=== PATIENT | male | born 1955 | race Caucasian/White ===

== ENCOUNTER 2016-07-23 22:04 | Inpatient (IN) ==
--- NOTE | 2016-07-23 22:19 | Emergency Department Note ---
START Narrative - START START: Initial start note brief triage and order sets: 61-year-old male reports to the emergency Department complaining of progressive and worsening abdominal pain over the last 2 days. He has not had a bowel movement for about 2 days. The patient denies trauma. He is a methadone patient. He has chronic neck pain. The patient denies any previous abdominal surgeries. He denies any chest pain shortness of breath or fever. No acute back or flank pain no history of bloody urine. The patient has no history of hepatitis or previous liver disease. The patient describes abdominal swelling but denies jaundice. He has no history of bloody stool. The patient's medical history includes chronic neck pain, he denies any other major medical problems. His female drum builder collaborates his story. She reports they tried to give him an enema which only produced minimal stool. PE: Age-appropriate male sitting upright in a wheelchair nontoxic in appearance alert oriented answering questions properly. HEENT normocephalic atraumatic neck is supple no JVD noted. Cardiovascular S1 and S2 audible Extremities warm and well-perfused 4 without cyanosis or significant edema Neurologic muscle strength and sensation generally intact cranial nerves II through XII grossly intact speech pattern unremarkable Lungs clear to auscultation without lesly wheezes rhonchi rales or crackles Abdomen somewhat distended and firm, notable tenderness, no evidence of trauma or overt herniation. Exposed skin warm and dry without petechia or purpura Initial assessment includes a broad differential for abdominal pain, comprehensive ED abdominal testing was ordered. IV access was established. Impression: Abdominal pain Abdominal distention Chronic narcotic utilization Plan: Comprehensive abdominal studies have been ordered. The patient has been checked out to BIJAN Barker and Dr. Duke who will assume care and determine final diagnosis and disposition. At this point I am signing off on the case.
[2016-07-23 22:56] LABS: Bilirubin,Urine Negative (Negative); Blood,Urine Negative (Negative); Clarity,Urine Clear (Clear); Color,Urine Yellow (Yellow); Glucose,Urine (UA) Normal (Normal); Ketones,Urine Negative (Negative); Leukocyte Esterase,Urine Negative (Negative); Nitrite,Urine Negative (Negative); Protein,Urine Trace mg/dL (Neg-Trace); Urobilinogen,Urine Normal (Normal)
[2016-07-23 23:04] LABS: Basophils % 0.2 %; Hematocrit 44.3 % (37.5-50.1); Hemoglobin 15.2 g/dL (12.9-16.9); Immature Granulocytes % 0.4 % (0-4); Lymphocytes # 1.6 K/mcL (0.6-4.6); Lymphocytes % 8.4 %; Mean Corpuscular HGB Conc 34.3 g/dL (31.6-35.5); Mean Corpuscular Hemoglobin 31.3 pg (28.0-33.3); Mean Corpuscular Volume 91.2 fL (83.0-100.0); Mean Platelet Volume 9.9 fL (9.4-12.4); Monocytes # 0.9 K/mcL (0.0-1.3); Monocytes % 4.9 %; Neutrophils # 16.5 K/mcL (1.6-8.9); Nucleated Red Blood Cells 0.1 /100 WBC (0); Platelet Count 222 K/mcL (140-400); Red Blood Count 4.86 M/mcL (4.19-5.50); Red Cell Distribution Width 13.9 % (11.5-14.5); Segmented Neutrophils % 86.1 %
[2016-07-23 23:08] LABS: INR 1.1; Prothrombin Time 11.4 Seconds (9.4-12.1)
[2016-07-23 23:11] LABS: Activated Partial Thrombo Time 26.2 Seconds (26.0-36.0)
[2016-07-23 23:18] LABS: Amphetamine Screen,Urine Negative ng/mL (Cutoff=1000); Barbiturate Screen,Urine Negative ng/mL (Cutoff=200); Benzodiazepines Screen,Urine Negative ng/mL (Cutoff=200); Cannabinoid Screen,Urine Negative ng/mL (Cutoff = 50); Cocaine Screen,Urine Negative ng/mL (Cutoff= 300); Opiate Screen,Urine Negative ng/mL (Cutoff=300); Phencyclidine Screen,Urine Negative ng/mL (Cutoff=25)
[2016-07-23] MEDS ORDERED: *HR* HYDROmorphone (PF) 1 MG/ML SYRINGE IVP ONE (23:18)
--- NOTE | 2016-07-23 23:20 | Emergency Department Note ---
Disposition Clinical Impression: Pancreatitis Qualifiers: Chronicity: acute Pancreatitis type: alcohol induced Acute pancreatitis complication: unspecified Qualified Code(s): K85.20 - Alcohol induced acute pancreatitis without necrosis or infection Abdominal pain Qualifiers: Abdominal location: unspecified location Qualified Code(s): R10.9 - Unspecified abdominal pain Disposition: Admitted As Inpatient Condition: Good Referrals: NO,PCP [Non-Partnered Physician] - Forms: Work/School Release, ED Satisfaction Letter Time of Disposition: 23:41 General Adult HPI - General Chief complaint: ED Abdominal Pain Stated complaint: Abdominal Pain Time Seen by Provider: 07/23/16 22:19 Source: patient Limitations: no limitations - History of Present Illness Pain Scale: 8 - Related Data Allergies Allergy/AdvReac Type Severity Reaction Status Date / Time No Known Allergies Allergy Verified 07/23/16 22:09 Past Medical History - Past Medical History Medical history: Reports: hypertension, other - Social History Smoking Status: Never smoker Smokeless Tobacco Status: No Alcohol use: Reports: heavy Drug use: Reports: none Physical Exam - General Limitations: no limitations General appearance: alert, in no apparent distress Course Vital Signs Temperature 98.1 F 07/23/16 22:05 Pulse Rate 100 07/23/16 22:05 Respiratory Rate 18 07/23/16 22:05 Blood Pressure 104/71 07/23/16 22:05 O2 Sat by Pulse Oximetry 94 L 07/23/16 22:05 Temperature 98.1 F 07/23/16 22:05 Pulse Rate 100 07/23/16 22:05 Respiratory Rate 18 07/23/16 22:05 Blood Pressure 104/71 07/23/16 22:05 O2 Sat by Pulse Oximetry 94 L 07/23/16 22:05 Oxygen Delivery Oxygen Delivery Room Air Medical Decision Making - Lab Data Result diagrams: 07/23/16 22:54 07/23/16 22:54 Lab Results 07/23/16 07/23/16 07/23/16 Range/Units 22:49 22:50 22:54 WBC 19.2 H (4.3-11.1) K/mcL RBC 4.86 (4.19-5.50) M/mcL Hgb 15.2 (12.9-16.9) g/dL Hct 44.3 (37.5-50.1) % MCV 91.2 (83.0-100.0) fL MCH 31.3 (28.0-33.3) pg MCHC 34.3 (31.6-35.5) g/dL RDW 13.9 (11.5-14.5) % Plt Count 222 (140-400) K/mcL MPV 9.9 (9.4-12.4) fL Immature Gran % 0.4 (0-4) % Seg Neutrophils % 86.1 % Lymphocytes % 8.4 % Monocytes % 4.9 % Eosinophils % 0.0 % Basophils % 0.2 % Neutrophils # 16.5 H (1.6-8.9) K/mcL Lymphocytes # 1.6 (0.6-4.6) K/mcL Monocytes # 0.9 (0.0-1.3) K/mcL Eosinophils # 0.0 (0.0-0.6) K/mcL Basophils # 0.0 (0.0-0.2) K/mcL Nucleated RBCs/100 WBC 0.1 H (0) /100 WBC PT (9.4-12.1) Seconds INR APTT (26.0-36.0) Seconds Sodium (136-145) mEq/L Potassium (3.5-4.5) mEq/L Chloride (98-109) mEq/L Carbon Dioxide (19-29) mEq/L BUN (8-26) mg/dL Creatinine (0.72-1.25) mg/dL Est GFR ( Amer) (> 60) Est GFR (Non-Af Amer) (> 60) BUN/Creatinine Ratio (6-26) Glucose (70-99) mg/dL Calculated Osmolality (280-300) Lactic Acid (0.5-2.2) mmol/L Calcium (8.6-10.8) mg/dL Total Bilirubin (0.2-1.2) mg/dL Direct Bilirubin (0.0-0.5) mg/dL Indirect Bilirubin (0.0-1.2) mg/dL AST (5-34) Units/L ALT (0-55) Units/L Alkaline Phosphatase (38-126) Units/L Ammonia (18-72) mcmol/L C-Reactive Protein (Less than 5) mg/L Serum Total Protein (6.0-8.3) g/dL Albumin (3.5-5.0) g/dL Globulin (2.4-3.5) g/dL Albumin/Globulin Ratio (1.1-2.2) Lipase (8-78) Units/L Urine Color Yellow (Yellow) Urine Clarity Clear (Clear) Urine pH 6.0 (5.0-8.0) pH Units Ur Specific Vernon 1.020 (1.010-1.025) Urine Protein Trace (Neg-Trace) mg/dL Urine Glucose (UA) Normal (Normal) mg/dL Urine Ketones Negative (Negative) mg/dL Urine Blood Negative (Negative) Urine Nitrite Negative (Negative) Urine Bilirubin Negative (Negative) Urine Urobilinogen Normal (Normal) mg/dL Ur Leukocyte Esterase Negative (Negative) Ur Culture Indicated? NO (NO) Salicylates (15-30) mg/dL Urine Opiates Screen Negative (Lymgvj=895) ng/mL Acetaminophen (10-30) mcg/mL Ur Barbiturates Screen Negative (Xetiuc=318) ng/mL Ur Phencyclidine Scrn Negative (Cutoff=25) ng/mL Ur Amphetamines Screen Negative (Gsjeex=1512) ng/mL U Benzodiazepines Scrn Negative (Vausnm=891) ng/mL Urine Cocaine Screen Negative (Cutoff= 300) ng/mL U Marijuana (THC) Screen Negative (Cutoff = 50) ng/mL 07/23/16 07/23/16 07/23/16 Range/Units 22:54 22:54 22:54 WBC (4.3-11.1) K/mcL RBC (4.19-5.50) M/mcL Hgb (12.9-16.9) g/dL Hct (37.5-50.1) % MCV (83.0-100.0) fL MCH (28.0-33.3) pg MCHC (31.6-35.5) g/dL RDW (11.5-14.5) % Plt Count (140-400) K/mcL MPV (9.4-12.4) fL Immature Gran % (0-4) % Seg Neutrophils % % Lymphocytes % % Monocytes % % Eosinophils % % Basophils % % Neutrophils # (1.6-8.9) K/mcL Lymphocytes # (0.6-4.6) K/mcL Monocytes # (0.0-1.3) K/mcL Eosinophils # (0.0-0.6) K/mcL Basophils # (0.0-0.2) K/mcL Nucleated RBCs/100 WBC (0) /100 WBC PT (9.4-12.1) Seconds INR APTT (26.0-36.0) Seconds Sodium 132 L (136-145) mEq/L Potassium 4.2 (3.5-4.5) mEq/L Chloride 90 L (98-109) mEq/L Carbon Dioxide 29 (19-29) mEq/L BUN 16 (8-26) mg/dL Creatinine 0.95 (0.72-1.25) mg/dL Est GFR ( Amer) > 60 (> 60) Est GFR (Non-Af Amer) > 60 (> 60) BUN/Creatinine Ratio 17 (6-26) Glucose 139 H (70-99) mg/dL Calculated Osmolality 277 L (280-300) Lactic Acid 2.3 H (0.5-2.2) mmol/L Calcium 10.1 (8.6-10.8) mg/dL Total Bilirubin 0.9 (0.2-1.2) mg/dL Direct Bilirubin 0.3 (0.0-0.5) mg/dL Indirect Bilirubin 0.6 (0.0-1.2) mg/dL AST 47 H (5-34) Units/L ALT 38 (0-55) Units/L Alkaline Phosphatase 67 (38-126) Units/L Ammonia (18-72) mcmol/L C-Reactive Protein 32 H (Less than 5) mg/L Serum Total Protein 7.8 (6.0-8.3) g/dL Albumin 3.5 (3.5-5.0) g/dL Globulin 4.3 H (2.4-3.5) g/dL Albumin/Globulin Ratio 0.8 L (1.1-2.2) Lipase 1114 H (8-78) Units/L Urine Color (Yellow) Urine Clarity (Clear) Urine pH (5.0-8.0) pH Units Ur Specific Vernon (1.010-1.025) Urine Protein (Neg-Trace) mg/dL Urine Glucose (UA) (Normal) mg/dL Urine Ketones (Negative) mg/dL Urine Blood (Negative) Urine Nitrite (Negative) Urine Bilirubin (Negative) Urine Urobilinogen (Normal) mg/dL Ur Leukocyte Esterase (Negative) Ur Culture Indicated? (NO) Salicylates 7.3 L (15-30) mg/dL Urine Opiates Screen (Jngvep=356) ng/mL Acetaminophen < 1.0 L (10-30) mcg/mL Ur Barbiturates Screen (Jtjnll=963) ng/mL Ur Phencyclidine Scrn (Cutoff=25) ng/mL Ur Amphetamines Screen (Zgpvuz=5312) ng/mL U Benzodiazepines Scrn (Aahrmp=369) ng/mL Urine Cocaine Screen (Cutoff= 300) ng/mL U Marijuana (THC) Screen (Cutoff = 50) ng/mL 07/23/16 07/23/16 Range/Units 22:54 22:54 WBC (4.3-11.1) K/mcL RBC (4.19-5.50) M/mcL Hgb (12.9-16.9) g/dL Hct (37.5-50.1) % MCV (83.0-100.0) fL MCH (28.0-33.3) pg MCHC (31.6-35.5) g/dL RDW (11.5-14.5) % Plt Count (140-400) K/mcL MPV (9.4-12.4) fL Immature Gran % (0-4) % Seg Neutrophils % % Lymphocytes % % Monocytes % % Eosinophils % % Basophils % % Neutrophils # (1.6-8.9) K/mcL Lymphocytes # (0.6-4.6) K/mcL Monocytes # (0.0-1.3) K/mcL Eosinophils # (0.0-0.6) K/mcL Basophils # (0.0-0.2) K/mcL Nucleated RBCs/100 WBC (0) /100 WBC PT 11.4 (9.4-12.1) Seconds INR 1.1 APTT 26.2 (26.0-36.0) Seconds Sodium (136-145) mEq/L Potassium (3.5-4.5) mEq/L Chloride (98-109) mEq/L Carbon Dioxide (19-29) mEq/L BUN (8-26) mg/dL Creatinine (0.72-1.25) mg/dL Est GFR ( Amer) (> 60) Est GFR (Non-Af Amer) (> 60) BUN/Creatinine Ratio (6-26) Glucose (70-99) mg/dL Calculated Osmolality (280-300) Lactic Acid (0.5-2.2) mmol/L Calcium (8.6-10.8) mg/dL Total Bilirubin (0.2-1.2) mg/dL Direct Bilirubin (0.0-0.5) mg/dL Indirect Bilirubin (0.0-1.2) mg/dL AST (5-34) Units/L ALT (0-55) Units/L Alkaline Phosphatase (38-126) Units/L Ammonia 13 L (18-72) mcmol/L C-Reactive Protein (Less than 5) mg/L Serum Total Protein (6.0-8.3) g/dL Albumin (3.5-5.0) g/dL Globulin (2.4-3.5) g/dL Albumin/Globulin Ratio (1.1-2.2) Lipase (8-78) Units/L Urine Color (Yellow) Urine Clarity (Clear) Urine pH (5.0-8.0) pH Units Ur Specific Vernon (1.010-1.025) Urine Protein (Neg-Trace) mg/dL Urine Glucose (UA) (Normal) mg/dL Urine Ketones (Negative) mg/dL Urine Blood (Negative) Urine Nitrite (Negative) Urine Bilirubin (Negative) Urine Urobilinogen (Normal) mg/dL Ur Leukocyte Esterase (Negative) Ur Culture Indicated? (NO) Salicylates (15-30) mg/dL Urine Opiates Screen (Fbmpin=490) ng/mL Acetaminophen (10-30) mcg/mL Ur Barbiturates Screen (Wntoww=959) ng/mL Ur Phencyclidine Scrn (Cutoff=25) ng/mL Ur Amphetamines Screen (Pmnelm=4102) ng/mL U Benzodiazepines Scrn (Yveizu=658) ng/mL Urine Cocaine Screen (Cutoff= 300) ng/mL U Marijuana (THC) Screen (Cutoff = 50) ng/mL Attestation Statement - Attestation Attestation: Care of patient assumed from Dr. Live at 11:15 PM. Patient presents with abdominal pain. He takes opiates chronically. He states he might be constipated. He requests pain medications on exam. Sitting in a wheelchair with noticeable mild distention to his abdomen. Labs reviewed by me. CT abdomen and pelvis with IV contrast pending. 23:40: Lipase markedly elevated. Patient does drink a 12 pack of beer daily and has been drinking liquor recently. I will request admission to the medicine service 00:00: Dr. Bazan accepts admission
[2016-07-23 23:21] LABS: Alanine Aminotransferase 38 Units/L (0-55); Albumin 3.5 g/dL (3.5-5.0); Albumin/Globulin Ratio 0.8 (1.1-2.2); Alkaline Phosphatase 67 Units/L (38-126); Aspartate Amino Transferase 47 Units/L (5-34); BUN/Creatinine Ratio 17 (6-26); Bilirubin,Direct 0.3 mg/dL (0.0-0.5); Bilirubin,Indirect 0.6 mg/dL (0.0-1.2); Bilirubin,Total 0.9 mg/dL (0.2-1.2); Blood Urea Nitrogen 16 mg/dL (8-26); Calcium 10.1 mg/dL (8.6-10.8); Carbon Dioxide 29 mEq/L (19-29); Chloride 90 mEq/L (98-109); Globulin 4.3 g/dL (2.4-3.5); Glucose 139 mg/dL (70-99); Lipase 1114 Units/L (8-78); Osmolality,Calculated 277 (280-300); Potassium 4.2 mEq/L (3.5-4.5); Sodium 132 mEq/L (136-145); Total Protein 7.8 g/dL (6.0-8.3); eGFR For African Americans > 60 (> 60); eGFR For Non-African Americans > 60 (> 60)
[2016-07-23 23:23] LABS: Acetaminophen < 1.0 mcg/mL (10-30)
[2016-07-23 23:34] LABS: C-Reactive Protein 32 mg/L (Less than 5)
[2016-07-23] MEDS ORDERED: 0.9 % Sodium Chloride 1,000 ML IVC ONE (23:54)
[2016-07-24] MEDS ORDERED: clonazePAM 1 MG TABLET PO SCH (02:09)
[2016-07-24] MEDS ORDERED: *HR* Methadone 5 MG TABLET PO SCH (02:09)
[2016-07-24] MEDS ORDERED: 0.9 % Sodium Chloride 1,000 ML IVC SCH ×2 (02:15→05:06)
[2016-07-24] MEDS ORDERED: Ondansetron 4 MG/2 ML VIAL IVP PRN (02:20)
[2016-07-24] MEDS ORDERED: Acetaminophen 325 MG TABLET PO PRN (02:20)
[2016-07-24] MEDS ORDERED: Naloxone 0.4 MG/ML INJ IVP PRN (02:20)
[2016-07-24] MEDS ORDERED: 0.9 % Sodium Chloride 1,000 ML ONE (02:30)
[2016-07-24] MEDS: tiZANidine 4 MG TABLET PO SCH ×3 (02:33→20:00)
[2016-07-24] MEDS: Bisoprolol/HCTZ 5/6.25 TABLET PO SCH (02:33)
--- NOTE | 2016-07-24 02:40 | Internal Med History&Physical ---
Date of Encounter: 07/24/16 Time of Encounter: 01:45 Assessment and Plan (1) Pancreatitis Current visit: Yes Status: Acute CT abdomen/pelvis showed acute on chronic pancreatitis with moderate inflammation adjacent tot he pancreatic tail with a single pseudocyst, hepatic steatosis. IV fluids Pain control with morphine Zofran PRN for nausea serial abdominal exams. NPO except medications. patient counseled on importance of alcohol cessation. Qualifiers: Chronicity: acute Pancreatitis type: alcohol induced Acute pancreatitis complication: unspecified Qualified Code(s): K85.20 - Alcohol induced acute pancreatitis without necrosis or infection (2) Abdominal pain Current visit: Yes Status: Acute Etiology likely secondary to pancreatitis. Plan as above. Qualifiers: Abdominal location: unspecified location Qualified Code(s): R10.9 - Unspecified abdominal pain (3) Alcohol dependence Current visit: Yes Status: Chronic Patient states that he drinks about a 6 pack of beer 3-4 days a week. He does not see this as a problem, and he does not believe he drinks too much. Patient counseled extensively on importance of alcohol cessation. [facility] protocol in place. Thiamine/folate supplementation Monitor for any signs of withdrawal. Consult to criminal justice social worker. Qualifiers: Substance use status: unspecified alcohol-induced disorder Qualified Code(s ): F10.29 - Alcohol dependence with unspecified alcohol-induced disorder (4) HTN (hypertension) Current visit: Yes Status: Chronic continue home medication Ziac Qualifiers: Hypertension type: essential hypertension Qualified Code(s): I10 - Essential (primary) hypertension (5) DVT prophylaxis Current visit: Yes Status: Acute heparin 5,000 units SQ Q8 HR Internal Medicine - H&P: HPI Chief complaint: abdominal pain Admitted From: Home Plans for Post Hospital Care: Home History of present illness: Mr. Sandoval is a 61 year old male with PMHx of chronic neck/back pain, HTN. Patient came to ED with CC of abdominal pain in mid to lower abdomen going across. He describes the pain as alternating between a sharp pain and a dull ache. Pain becomes sharp and gets worse with movement. Laying in a position makes the pain better. There is no radiation of the pain. Patient denies nausea, vomiting. He states he was constipated for about two days and finally had a bowel movement today after his gave him an enema. Patient denies blood in stool. He denies fevers but has chills. Social Hx: patient lives at home with . Denies smoking or illicit drug use. He admits to alcohol use: drinks a 6 pack about 3-4 days a week. He denies alcohol dependency but does seem to drink more than normal. His last drink was Sat- he had half a beer. Family Hx: mother: HTN, Father: at 38 from MVA. Past Med Surg Social Fam HX - Past Medical History Medical history: hypertension - Past Surgical History Surgical History: cataract - Social History Smoking Status: Former smoker Smokeless Tobacco Status: No Alcohol use: heavy Drug use: none - Family History Father Hx Family Medical Disorders: Yes (Diabetes) Internal Medicine - H&P: Meds Benazepril/Hydrochlorothiazide [Ziac 5-6.25 mg Tab] 1 tab PO DAILY 07/24/16 [ History] ClonazePAM [Klonopin] 1 mg PO HS 07/24/16 [History] Methadone 5 mg PO Q6H 07/24/16 [History] Oxycodone HCl [Oxaydo] 5 mg PO BID 07/24/16 [History] Tizanidine HCl [Zanaflex] 4 mg PO BID 07/24/16 [History] Allergies No Known Allergies Allergy (Verified 07/23/16 22:09) All Systems PM: A 10-system review of systems was performed and is negative for pertinent findings except as documented above in the HPI. - Constitutional Constitutional: chills, no fever(s), no falls - Cardiovascular Cardiovascular ROS IM: no chest pain, no dyspnea - Respiratory Respiratory: no cough - Gastrointestinal Gastrointestinal: abdominal pain, bloating, no coffee ground emesis, no hematochezia, no melena - Genitourinary Genitourinary ROS male: no difficulty urinating, no hematuria - Neurological Neurological ROS: no frequent falls, no loss of vision - Constitutional Vitals: Temp Pulse Resp BP Pulse Ox 97.8 F 80 20 170/84 97 07/24/16 01:07 07/24/16 01:07 07/24/16 01:07 07/24/16 01:07 07/24/16 01:07 General appearance: Present: A&O X 3, pleasant, no acute distress, answers questions appropriately - Head Head exam: Present: atraumatic, normocephalic - Neck Neck exam general surgery: Present: supple, trachea midline - Respiratory Respiratory exam: Present: CTAB - Cardiovascular Cardiovascular exam: Present: RRR, +S1, +S2 - GI/Abdominal GI/Abdominal exam: Present: distended, firm, normal bowel sounds, tenderness ( in mid and lower abdomen. ). Absent: guarding - Extremities Exam Extremities exam: Absent: cyanotic, pedal edema Internal Med - H&P Results - Labs CBC & Chem 7: 07/24/16 04:22 07/24/16 04:22
[2016-07-24 04:38] LABS: Basophils % 0.2 %; Eosinophils % 0.1 %; Hematocrit 39.8 % (37.5-50.1); Hemoglobin 13.7 g/dL (12.9-16.9); Immature Granulocytes % 0.6 % (0-4); Lymphocytes # 2.1 K/mcL (0.6-4.6); Lymphocytes % 11.9 %; Mean Corpuscular HGB Conc 34.4 g/dL (31.6-35.5); Mean Corpuscular Hemoglobin 31.5 pg (28.0-33.3); Mean Corpuscular Volume 91.5 fL (83.0-100.0); Mean Platelet Volume 10.2 fL (9.4-12.4); Monocytes # 0.9 K/mcL (0.0-1.3); Monocytes % 5.1 %; Neutrophils # 14.8 K/mcL (1.6-8.9); Platelet Count 188 K/mcL (140-400); Red Blood Count 4.35 M/mcL (4.19-5.50); Segmented Neutrophils % 82.1 %
[2016-07-24 05:04] LABS: Alanine Aminotransferase 30 Units/L (0-55); Albumin/Globulin Ratio 0.9 (1.1-2.2); Alkaline Phosphatase 52 Units/L (38-126); Aspartate Amino Transferase 38 Units/L (5-34); BUN/Creatinine Ratio 20 (6-26); Blood Urea Nitrogen 16 mg/dL (8-26); Calcium 8.9 mg/dL (8.6-10.8); Carbon Dioxide 24 mEq/L (19-29); Chloride 96 mEq/L (98-109); Chol/HDL Ratio 4.1 (0-4.9); Cholesterol 158 mg/dL (< 200); Globulin 3.5 g/dL (2.4-3.5); Glucose 110 mg/dL (70-99); HDL Cholesterol 39 mg/dL (40-59); LDL Cholesterol,Calculated 88 mg/dL (0-99); Magnesium 1.7 mg/dL (1.6-2.6); Osmolality,Calculated 278 (280-300); Phosphorous 3.4 mg/dL (2.3-4.7); Potassium 4.3 mEq/L (3.5-4.5); Sodium 133 mEq/L (136-145); Total Protein 6.5 g/dL (6.0-8.3); Triglycerides 154 mg/dL (< 150); eGFR For African Americans > 60 (> 60); eGFR For Non-African Americans > 60 (> 60)
[2016-07-24 05:06] LABS: Amylase 307 Units/L (25-125); Lipase 876 Units/L (8-78)
[2016-07-24] MEDS: *HR* Heparin 5,000 UNIT/ML VIAL SQ SCH ×2 (06:44→14:53)
[2016-07-24] MEDS: *HR* Morphine 2 MG/ML SYRINGE IVP PRN ×5 (08:13→22:40)
[2016-07-24] MEDS: Pantoprazole 40 MG VIAL IVP SCH (08:14)
[2016-07-24] MEDS: Folic Acid 1 MG TABLET PO SCH (08:14)
[2016-07-24] MEDS: Thiamine (B-1) 100 MG TABLET PO SCH (08:14)
[2016-07-24] MEDS ORDERED: Lidocaine Jelly 11 ml Syringe MM ONE (13:56)
[2016-07-24] MEDS ORDERED: Chloraseptic Spray 177 ML BOTTLE MM PRN (14:40)
[2016-07-24] MEDS: 0.9 % Sodium Chloride 1,000 ML IVC SCH ×2 (15:08→20:15)
--- NOTE | 2016-07-24 15:21 | Internal Med Progress Note ---
Date of Encounter: 07/24/16 Time of Encounter: 13:30 - Assessment and plan (1) Acute alcoholic pancreatitis Current Visit: Yes Status: Acute Assessment and plan: Patient presented with severe abdominal pain and distention. CT abdomen/pelvis showed acute on chronic pancreatitis with moderate inflammation adjacent to the pancreatic tail with a single pseudocyst, reactive ileus, hepatic steatosis, bilateral adrenal nodules. Triglycerides 154. Place NG tube to LIWS. Continue supportive therapy with IV fluids, Pain control with morphine, Zofran PRN for nausea, and NPO. Qualifiers: Acute pancreatitis complication: no infection or necrosis Qualified Code(s) : K85.20 - Alcohol induced acute pancreatitis without necrosis or infection (2) Ileus Current Visit: Yes Status: Acute Assessment and plan: reactive due to acute pancreatitis. plan as above. (3) Alcohol dependence Current Visit: Yes Status: Chronic Assessment and plan: patient counseled on importance of alcohol cessation. [facility] protocol. Qualifiers: Substance use status: unspecified alcohol-induced disorder Qualified Code(s ): F10.29 - Alcohol dependence with unspecified alcohol-induced disorder (4) HTN (hypertension) Current Visit: Yes Status: Chronic Assessment and plan: Not controlled. This could be secondary to pain. Continue pain control and IV hydralazine when necessary. Qualifiers: Hypertension type: essential hypertension Qualified Code(s): I10 - Essential (primary) hypertension (5) Adrenal incidentaloma Current Visit: Yes Status: Acute Assessment and plan: f/u with pcp - Subjective Interval history: patient complains of abdominal pain and distension. no nausea. no vomiting. - Constitutional Vitals: Temp Pulse Resp BP Pulse Ox 98.5 F 58 18 182/88 93 L 07/24/16 14:21 07/24/16 14:21 07/24/16 14:21 07/24/16 15:07 07/24/16 14:21 General appearance: Present: A&O X 3, pleasant, no acute distress, answers questions appropriately - ENT ENT exam: Present: mucous membranes dry - Neck Neck exam general surgery: Present: supple, trachea midline. Absent: lymphadenopathy - Respiratory Respiratory exam: Present: CTAB - Cardiovascular Cardiovascular exam: Present: RRR - GI/Abdominal GI/Abdominal exam: Present: distended, hypoactive bowel sounds, soft, tenderness (diffuse tenderness) - Extremities Exam Extremities exam: Absent: pedal edema - Back Exam Back exam: Absent: CVA tenderness (L), CVA tenderness (R) - Neurological Exam Neurological exam: Present: alert, oriented X3, no focal deficits. Absent: facial droop, speech deficit - Skin Skin exam: Present: dry. Absent: rash Internal Medicine: Result - Labs CBC & Chem 7: 07/24/16 04:22 07/24/16 04:22 Labs: Short CBC 07/24/16 Range/Units 04:22 WBC 18.0 H (4.3-11.1) K/mcL Hgb 13.7 D (12.9-16.9) g/dL Hct 39.8 (37.5-50.1) % Plt Count 188 (140-400) K/mcL Neutrophils # 14.8 H (1.6-8.9) K/mcL BMP 07/24/16 04:22 Sodium 133 L Potassium 4.3 Chloride 96 L Carbon Dioxide 24 BUN 16 Creatinine 0.80 Glucose 110 H Calcium 8.9 Liver Function 07/24/16 Range/Units 04:22 Total Bilirubin 1.0 (0.2-1.2) mg/dL AST 38 H (5-34) Units/L ALT 30 (0-55) Units/L Alkaline Phosphatase 52 (38-126) Units/L Albumin 3.0 L (3.5-5.0) g/dL - ABG Interpretation ABG results: PT/INR, D-dimer PT 11.4 Seconds (9.4-12.1) 07/23/16 22:54 Consult Discharge Plan - Plan Referrals: Amie Zhang MD [Primary Care Provider] -
[2016-07-24] MEDS: *HR* LORazepam 2 MG/ML VIAL IVP PRN (16:30)
[2016-07-24] MEDS: *HR* LORazepam 2 MG/ML VIAL IVP SCH (20:00)
[2016-07-25] MEDS: *HR* Morphine 2 MG/ML SYRINGE IVP PRN ×5 (00:40→21:13)
[2016-07-25] MEDS: *HR* Heparin 5,000 UNIT/ML VIAL SQ SCH ×4 (00:40→23:16)
[2016-07-25] MEDS: *HR* LORazepam 2 MG/ML VIAL IVP PRN ×2 (00:41→04:42)
[2016-07-25 04:55] LABS: Basophils % 0.2 %; Eosinophils # 0.1 K/mcL (0.0-0.6); Eosinophils % 0.3 %; Hematocrit 34.8 % (37.5-50.1); Immature Granulocytes % 0.6 % (0-4); Lymphocytes % 12.6 %; Mean Corpuscular HGB Conc 34.2 g/dL (31.6-35.5); Mean Corpuscular Hemoglobin 32.1 pg (28.0-33.3); Mean Corpuscular Volume 93.8 fL (83.0-100.0); Mean Platelet Volume 11.1 fL (9.4-12.4); Monocytes # 0.8 K/mcL (0.0-1.3); Monocytes % 5.3 %; Neutrophils # 12.8 K/mcL (1.6-8.9); Platelet Count 144 K/mcL (140-400); Red Blood Count 3.71 M/mcL (4.19-5.50); Red Cell Distribution Width 14.2 % (11.5-14.5)
[2016-07-25 05:02] LABS: Hemoglobin 11.9 g/dL (12.9-16.9)
[2016-07-25 05:12] LABS: BUN/Creatinine Ratio 19 (6-26); Blood Urea Nitrogen 14 mg/dL (8-26); Calcium 8.5 mg/dL (8.6-10.8); Carbon Dioxide 22 mEq/L (19-29); Chloride 100 mEq/L (98-109); Glucose 120 mg/dL (70-99); Magnesium 1.8 mg/dL (1.6-2.6); Osmolality,Calculated 278 (280-300); Potassium 3.3 mEq/L (3.5-4.5); Sodium 133 mEq/L (136-145); eGFR For African Americans > 60 (> 60); eGFR For Non-African Americans > 60 (> 60)
[2016-07-25] MEDS: 0.9 % Sodium Chloride 1,000 ML IVC SCH ×2 (06:20→16:04)
[2016-07-25] MEDS: Thiamine (B-1) 100 MG TABLET PO SCH (09:18)
[2016-07-25] MEDS: Bisoprolol/HCTZ 5/6.25 TABLET PO SCH (09:18)
[2016-07-25] MEDS: tiZANidine 4 MG TABLET PO SCH ×2 (09:18→20:28)
[2016-07-25] MEDS: Pantoprazole 40 MG VIAL IVP SCH (09:18)
[2016-07-25] MEDS: Folic Acid 1 MG TABLET PO SCH (09:18)
--- NOTE | 2016-07-25 11:03 | Internal Med Progress Note ---
<Rakesh Gracia - Last Filed: 07/25/16 13:37> Date of Encounter: 07/25/16 Time of Encounter: 11:03 - Assessment and plan (1) Acute alcoholic pancreatitis Current Visit: Yes Status: Acute Assessment and plan: Leukocytosis and lipase coming down, not much of output from NG tube, will stop IV fluid, clinically improving, will start him on clear liquid diet and advance as tolerated. Qualifiers: Acute pancreatitis complication: no infection or necrosis Qualified Code(s) : K85.20 - Alcohol induced acute pancreatitis without necrosis or infection (2) Alcohol abuse Current Visit: Yes Status: Acute Assessment and plan: CIWA protocol with ativan prn and daily rally pack. (3) Pseudocyst of pancreas Current Visit: Yes Status: Acute Assessment and plan: F/u CT scan as outpt to make sure it resolves or not causing any symptoms after hospital d/c. (4) Adrenal incidentaloma Current Visit: Yes Status: Acute Assessment and plan: F/u as outpt. (5) Ileus Current Visit: Yes Status: Acute Assessment and plan: Clinically improving, no abd pain, no bowel movement yet, no nausea, will remove NG tube and will start clear liquid diet this afternoon (6) Hypokalemia Current Visit: Yes Status: Acute Assessment and plan: Replaced, mag was normal, recheck in AM. (7) DVT prophylaxis Current Visit: Yes Status: Acute Assessment and plan: Heparin SQ. - Subjective Interval history: Pt seen and examined, no nausea, his abd pain improved, no bowel movement yet. - Constitutional Vitals: Temp Pulse Resp BP Pulse Ox 99.3 F 57 16 165/90 93 L 07/25/16 10:57 07/25/16 10:57 07/25/16 10:57 07/25/16 10:57 07/25/16 10:57 General appearance: Present: A&O X 3, pleasant, no acute distress, answers questions appropriately - Head Head exam: Present: atraumatic, normocephalic - Eye Eye exam: Present: PERRL, conjuntiva pink, sclera anicteric Pupils: Present: PERRL - Neck Neck exam general surgery: Present: supple, trachea midline. Absent: lymphadenopathy - Respiratory Respiratory exam: Present: CTAB. Absent: accessory muscle use, rales, rhonchi, wheezes - Cardiovascular Cardiovascular exam: Present: RRR, +S1, +S2. Absent: diastolic murmur, gallop, rubs, systolic murmur - GI/Abdominal GI/Abdominal exam: Present: normal bowel sounds, soft, no peritoneal signs. Absent: distended, tenderness - Extremities Exam Extremities exam: Present: warm, radial pulses palpable and symetrical. Absent : calf tenderness, cyanotic, pedal edema - Neurological Exam Neurological exam: Present: CN II-XII intact, oriented X3, no focal deficits. Absent: pronater drift, facial droop, speech deficit - Skin Skin exam: Present: dry, intact Internal Medicine: Result - Labs CBC & Chem 7: 07/25/16 04:38 07/25/16 04:38 Labs: Short CBC 07/25/16 Range/Units 04:38 WBC 15.7 H (4.3-11.1) K/mcL Hgb 11.9 L D (12.9-16.9) g/dL Hct 34.8 L (37.5-50.1) % Plt Count 144 (140-400) K/mcL Neutrophils # 12.8 H (1.6-8.9) K/mcL BMP 07/25/16 04:38 Sodium 133 L Potassium 3.3 L D Chloride 100 Carbon Dioxide 22 BUN 14 Creatinine 0.74 Glucose 120 H Calcium 8.5 L - ABG Interpretation ABG results: PT/INR, D-dimer PT 11.4 Seconds (9.4-12.1) 07/23/16 22:54 Consult Discharge Plan - Plan Referrals: Amie Zhang MD [Primary Care Provider] - <Cornelio Paulino - Last Filed: 07/25/16 17:48> Date of Encounter: 07/25/16 - Constitutional Vitals: Temp Pulse Resp BP Pulse Ox 99.1 F 56 14 157/82 92 L 07/25/16 15:43 07/25/16 15:43 07/25/16 15:43 07/25/16 15:43 07/25/16 15:43 Internal Medicine: Result - Labs CBC & Chem 7: 07/25/16 04:38 07/25/16 04:38 Labs: Short CBC 07/25/16 Range/Units 04:38 WBC 15.7 H (4.3-11.1) K/mcL Hgb 11.9 L D (12.9-16.9) g/dL Hct 34.8 L (37.5-50.1) % Plt Count 144 (140-400) K/mcL Neutrophils # 12.8 H (1.6-8.9) K/mcL BMP 07/25/16 04:38 Sodium 133 L Potassium 3.3 L D Chloride 100 Carbon Dioxide 22 BUN 14 Creatinine 0.74 Glucose 120 H Calcium 8.5 L - ABG Interpretation ABG results: PT/INR, D-dimer PT 11.4 Seconds (9.4-12.1) 07/23/16 22:54 - Attending Attestation Mr. Sandoval was seen and examined in rounds. I agree with the physical examination findings, assessment and plan as documented by the resident Dr. Rakesh Gracia. Briefly, patient with heavy alcohol intake has developed an acute on chronic pancreatitis with evidence of pseudocyst. He was nothing by mouth and had an nasogastric tube placed. At this point he has bowel sounds and patient has less pain. We will remove the nasogastric tube and start clear liquid diet, will continue IV fluids. Continue with pain control, continue with prophylaxis for delirium tremens. technical services rep evaluation for history of chronic alcohol abuse. Monitor electrolytes, calcium and LFTs tomorrow in a.m.
[2016-07-25] MEDS: *HR* LORazepam 2 MG/ML VIAL IVP SCH (20:29)
[2016-07-26] MEDS: 0.9 % Sodium Chloride 1,000 ML IVC SCH (02:25)
[2016-07-26] MEDS: *HR* Morphine 2 MG/ML SYRINGE IVP PRN ×6 (02:31→17:19)
[2016-07-26 05:58] LABS: Basophils % 0.3 %; Eosinophils # 0.2 K/mcL (0.0-0.6); Eosinophils % 1.7 %; Hematocrit 36.5 % (37.5-50.1); Hemoglobin 11.8 g/dL (12.9-16.9); Immature Granulocytes % 0.5 % (0-4); Lymphocytes # 2.1 K/mcL (0.6-4.6); Lymphocytes % 15.6 %; Mean Corpuscular HGB Conc 32.3 g/dL (31.6-35.5); Mean Corpuscular Hemoglobin 31.5 pg (28.0-33.3); Mean Corpuscular Volume 97.3 fL (83.0-100.0); Monocytes # 0.8 K/mcL (0.0-1.3); Neutrophils # 10.3 K/mcL (1.6-8.9); Platelet Count 159 K/mcL (140-400); Red Blood Count 3.75 M/mcL (4.19-5.50); Red Cell Distribution Width 13.8 % (11.5-14.5); Segmented Neutrophils % 75.9 %
[2016-07-26] MEDS: *HR* Heparin 5,000 UNIT/ML VIAL SQ SCH ×2 (06:02→14:45)
[2016-07-26 06:12] LABS: Potassium 3.2 mEq/L (3.5-4.5); Sodium 132 mEq/L (136-145)
[2016-07-26 06:13] LABS: BUN/Creatinine Ratio 17 (6-26); Blood Urea Nitrogen 13 mg/dL (8-26); Calcium 8.4 mg/dL (8.6-10.8); Carbon Dioxide 24 mEq/L (19-29); Chloride 99 mEq/L (98-109); Glucose 96 mg/dL (70-99); Osmolality,Calculated 274 (280-300); eGFR For African Americans > 60 (> 60); eGFR For Non-African Americans > 60 (> 60)
[2016-07-26] MEDS: Pantoprazole 40 MG VIAL IVP SCH (10:00)
[2016-07-26] MEDS: Thiamine (B-1) 100 MG TABLET PO SCH (10:01)
[2016-07-26] MEDS: Folic Acid 1 MG TABLET PO SCH (10:01)
[2016-07-26] MEDS: Bisoprolol/HCTZ 5/6.25 TABLET PO SCH (10:01)
[2016-07-26] MEDS: tiZANidine 4 MG TABLET PO SCH ×2 (10:03→20:50)
[2016-07-26] MEDS ORDERED: Multivitamin Liquid 15 ML UDC PO SCH (11:15)
--- NOTE | 2016-07-26 11:22 | Internal Med Progress Note ---
<Rakesh Gracia - Last Filed: 07/26/16 17:44> Date of Encounter: 07/26/16 Time of Encounter: 11:22 - Assessment and plan (1) Acute alcoholic pancreatitis Current Visit: Yes Status: Acute Assessment and plan: Leukocytosis and lipase coming down, not much of output from NG tube therefore it was removed yesterday, will stop IV fluid, clinically improving, tolerated clear liquid diet well, will advance as tolerated, likely to be d/c tmw. Qualifiers: Acute pancreatitis complication: no infection or necrosis Qualified Code(s) : K85.20 - Alcohol induced acute pancreatitis without necrosis or infection (2) Alcohol abuse Current Visit: Yes Status: Acute Assessment and plan: CIWA protocol with ativan prn and daily rally pack. (3) Pseudocyst of pancreas Current Visit: Yes Status: Acute Assessment and plan: F/u CT scan as outpt to make sure it resolves and not causing any symptoms after hospital d/c. (4) Adrenal incidentaloma Current Visit: Yes Status: Acute Assessment and plan: F/u as outpt. (5) Ileus Current Visit: Yes Status: Acute Assessment and plan: Clinically improving, no abd pain, no bowel movement yet, no nausea, NG tube removed and started him on clear liquid diet, advance as tolerated. (6) Hypokalemia Current Visit: Yes Status: Acute Assessment and plan: Replaced, mag was normal, recheck in AM. (7) DVT prophylaxis Current Visit: Yes Status: Acute Assessment and plan: Heparin SQ. - Subjective Interval history: Pt seen and examined, no nausea, his abd pain improved, no bowel movement yet, tolerated clear liquid diet well today. - Constitutional Vitals: Temp Pulse Resp BP Pulse Ox 97.8 F 61 16 189/100 94 L 07/26/16 07:30 07/26/16 07:30 07/26/16 07:30 07/26/16 07:30 07/26/16 07:30 General appearance: Present: A&O X 3, pleasant, no acute distress, answers questions appropriately - Head Head exam: Present: atraumatic, normocephalic - Eye Eye exam: Present: PERRL, conjuntiva pink, sclera anicteric Pupils: Present: PERRL - Neck Neck exam general surgery: Present: supple, trachea midline. Absent: lymphadenopathy - Respiratory Respiratory exam: Present: CTAB. Absent: accessory muscle use, rales, rhonchi, wheezes - Cardiovascular Cardiovascular exam: Present: RRR, +S1, +S2. Absent: diastolic murmur, gallop, rubs, systolic murmur - GI/Abdominal GI/Abdominal exam: Present: normal bowel sounds, soft, no peritoneal signs. Absent: distended, tenderness - Extremities Exam Extremities exam: Present: warm, radial pulses palpable and symetrical. Absent : calf tenderness, cyanotic, pedal edema - Neurological Exam Neurological exam: Present: CN II-XII intact, oriented X3, no focal deficits. Absent: pronater drift, facial droop, speech deficit - Skin Skin exam: Present: dry, intact Internal Medicine: Result - Labs CBC & Chem 7: 07/26/16 05:32 07/26/16 05:32 Labs: Short CBC 07/26/16 Range/Units 05:32 WBC 13.6 H (4.3-11.1) K/mcL Hgb 11.8 L (12.9-16.9) g/dL Hct 36.5 L (37.5-50.1) % Plt Count 159 (140-400) K/mcL Neutrophils # 10.3 H (1.6-8.9) K/mcL BMP 07/26/16 05:32 Sodium 132 L Potassium 3.2 L Chloride 99 Carbon Dioxide 24 BUN 13 Creatinine 0.77 Glucose 96 Calcium 8.4 L - ABG Interpretation ABG results: PT/INR, D-dimer PT 11.4 Seconds (9.4-12.1) 07/23/16 22:54 Consult Discharge Plan - Plan Referrals: Amie Zhang MD [Primary Care Provider] - <Cornelio Paulino - Last Filed: 07/26/16 18:18> Date of Encounter: 07/26/16 - Constitutional Vitals: Temp Pulse Resp BP Pulse Ox 98.0 F 69 16 151/87 94 L 07/26/16 15:20 07/26/16 15:20 07/26/16 15:20 07/26/16 15:20 07/26/16 15:20 Internal Medicine: Result - Labs CBC & Chem 7: 07/26/16 05:32 07/26/16 05:32 Labs: Short CBC 07/26/16 Range/Units 05:32 WBC 13.6 H (4.3-11.1) K/mcL Hgb 11.8 L (12.9-16.9) g/dL Hct 36.5 L (37.5-50.1) % Plt Count 159 (140-400) K/mcL Neutrophils # 10.3 H (1.6-8.9) K/mcL BMP 07/26/16 05:32 Sodium 132 L Potassium 3.2 L Chloride 99 Carbon Dioxide 24 BUN 13 Creatinine 0.77 Glucose 96 Calcium 8.4 L - ABG Interpretation ABG results: PT/INR, D-dimer PT 11.4 Seconds (9.4-12.1) 07/23/16 22:54 - Attending Attestation I examined this patient and my medical decision-making was reviewed with the PATTERNATOR/PA/Advanced Practice Nurse/Resident Physician. I agree with the documented findings, disposition and treatment plan as described except to the extent set forth below. Patient stable, pancreatitis improving, will advance diet, possible D/C in am. D /W patient.
[2016-07-26] MEDS: Cholecalciferol (D-3) 1,000 UNIT TABLET PO SCH (12:16)
[2016-07-26] MEDS: Multivit/Ca/Min/Fe/FA 1 TAB TABLET PO SCH (13:09)
[2016-07-26] MEDS: *HR* LORazepam 2 MG/ML VIAL IVP SCH (20:50)
[2016-07-27] MEDS: *HR* OxyCODONE Immed Rel 5 MG TABLET PO SCH ×2 (00:01→08:40)
[2016-07-27] MEDS: *HR* Heparin 5,000 UNIT/ML VIAL SQ SCH ×3 (01:11→13:46)
[2016-07-27 05:40] LABS: Basophils % 0.4 %; Eosinophils # 0.4 K/mcL (0.0-0.6); Eosinophils % 4.3 %; Hematocrit 35.1 % (37.5-50.1); Hemoglobin 11.5 g/dL (12.9-16.9); Immature Granulocytes % 0.7 % (0-4); Lymphocytes # 1.6 K/mcL (0.6-4.6); Lymphocytes % 15.5 %; Mean Corpuscular HGB Conc 32.8 g/dL (31.6-35.5); Mean Corpuscular Hemoglobin 30.9 pg (28.0-33.3); Mean Corpuscular Volume 94.4 fL (83.0-100.0); Mean Platelet Volume 10.7 fL (9.4-12.4); Monocytes # 0.9 K/mcL (0.0-1.3); Neutrophils # 7.1 K/mcL (1.6-8.9); Platelet Count 176 K/mcL (140-400); Red Blood Count 3.72 M/mcL (4.19-5.50); Red Cell Distribution Width 13.3 % (11.5-14.5); Segmented Neutrophils % 70.1 %
[2016-07-27 05:49] LABS: BUN/Creatinine Ratio 13 (6-26); Blood Urea Nitrogen 9 mg/dL (8-26); Calcium 8.8 mg/dL (8.6-10.8); Carbon Dioxide 27 mEq/L (19-29); Chloride 100 mEq/L (98-109); Glucose 122 mg/dL (70-99); Osmolality,Calculated 282 (280-300); Sodium 136 mEq/L (136-145); eGFR For African Americans > 60 (> 60); eGFR For Non-African Americans > 60 (> 60)
[2016-07-27] MEDS: Folic Acid 1 MG TABLET PO SCH (08:39)
[2016-07-27] MEDS: Multivit/Ca/Min/Fe/FA 1 TAB TABLET PO SCH (08:39)
[2016-07-27] MEDS: tiZANidine 4 MG TABLET PO SCH (08:39)
[2016-07-27] MEDS: Pantoprazole 40 MG VIAL IVP SCH (08:39)
[2016-07-27] MEDS: Thiamine (B-1) 100 MG TABLET PO SCH (08:39)
[2016-07-27] MEDS: Cholecalciferol (D-3) 1,000 UNIT TABLET PO SCH (08:39)
[2016-07-27] MEDS ORDERED: Bisoprolol/HCTZ 10/6.25 TABLET PO SCH (09:00)
[2016-07-27 10:49] VITALS: BP 107/68
--- NOTE | 2016-07-27 13:50 | Discharge Summary ---
<Rakesh Gracia - Last Filed: 07/27/16 13:45> Date of Encounter: 07/27/16 Time of Encounter: 13:45 - Discharge Diagnosis (1) Acute alcoholic pancreatitis Priority: Primary Status: Acute Qualifiers: Acute pancreatitis complication: no infection or necrosis Qualified Code(s) : K85.20 - Alcohol induced acute pancreatitis without necrosis or infection (2) Alcohol abuse Priority: Secondary Status: Acute (3) Pseudocyst of pancreas Priority: Secondary Status: Acute (4) Adrenal incidentaloma Priority: Secondary Status: Acute (5) Ileus Priority: Secondary Status: Acute (6) Hypokalemia Priority: Secondary Status: Acute (7) DVT prophylaxis Priority: Secondary Status: Acute - Discharge Medications Prescriptions: Folic Acid 1 mg PO DAILY #5 tablet Thiamine (B-1) [Vitamin B-1] 100 mg PO DAILY #5 tablet Home Medications: Benazepril/Hydrochlorothiazide [Ziac 5-6.25 mg Tab] 1 tab PO DAILY 07/24/16 [ History] Cholecalciferol (Vitamin D3) [Vitamin D3] 5,000 unit PO DAILY 07/24/16 [History] ClonazePAM [Klonopin] 1 mg PO HS 07/24/16 [History] Methadone 5 mg PO Q6H 07/24/16 [History] Tizanidine HCl [Zanaflex] 4 mg PO BID 07/24/16 [History] Folic Acid 1 mg PO DAILY #5 tablet 07/27/16 [Rx] Thiamine (B-1) [Vitamin B-1] 100 mg PO DAILY #5 tablet 07/27/16 [Rx] Allergies/Adverse Reactions: Allergies No Known Allergies Allergy (Verified 07/23/16 22:09) Date of admission: 07/24/16 00:29 Primary care physician: Amie Zhang MD Consults: 07/24/16 02:42 Consult to Billet Heater Operator [CONS] Routine Reason for SW Consult: history of alcohol use. 07/25/16 12:19 Consult to Billet Heater Operator [CONS] Routine Reason for SW Consult: drinking cessation 07/26/16 11:05 Consult to Occupational Therapy [CONS] Routine Comment: Evaluate, develop and implement POC Consult to Physical Therapy [CONS] Routine Comment: Evaluate, develop and implement POC Discharging clinician: Rakesh Gracia Anticipated date of discharge: 07/27/16 - Patient Status Disposition: Home Health Service Condition: Good Functional capacity at discharge: uses cane/walker (fall precaution, up with assistance) - Discharge Instructions Follow Up With: Amie Zhang MD [Primary Care Provider] - 08/02/16 11:45 am (F/u in a week for hospital d/c f/u, f/u on pseudocyst in pacreases, follow up on incidental finding of b/l adrenal nodules) - Diet and Activity Activity: as per physical therapy Diet: low fat, low cholesterol, low salt diet Hospital course: Mr. Sandoval is a 61 year old male with alcoholic abuse came to the ER with cc of abdominal pain, CT of abd showed acute on chronic pancreatitis with pseudocyst, incidental finding of b/l adrenal nodule and reactive ileus. Pt was admitted for same reaso, initially he was on bowl rest, NS IV and NG tube, lipase and leukocytosis improved, he was on CIWA protocol for hx of alcohol abuse, he was subsequently started on clear liquid diet, tolerated welll, and he also tolerated well on full liquid and regular diet, abd pain resolved, therefore he will be d/c in a stable condition. PT suggested HH with PT and he will have it done at home for his weakness. - Time Spent with Patient Total time spent providing and/or coordinating discharge services: - Constitutional Vitals: Temp Pulse Resp BP Pulse Ox 98.2 F 70 16 107/68 94 L 07/27/16 10:43 07/27/16 10:43 07/27/16 10:43 07/27/16 10:43 07/27/16 10:43 General appearance: Present: cooperative, A&O X 3, pleasant, no acute distress, answers questions appropriately - Head Head exam: Present: atraumatic, normocephalic - Eye Eye exam: Present: PERRL, conjuntiva pink, sclera anicteric Pupils: Present: PERRL - Neck Neck exam general surgery: Present: supple, trachea midline. Absent: lymphadenopathy - Respiratory Respiratory exam: Present: CTAB. Absent: accessory muscle use, rales, rhonchi, wheezes - Cardiovascular Cardiovascular exam: Present: RRR, +S1, +S2. Absent: diastolic murmur, gallop, rubs, systolic murmur - GI/Abdominal GI/Abdominal exam: Present: normal bowel sounds, soft, no peritoneal signs. Absent: distended, tenderness - Extremities Exam Extremities exam: Present: warm, radial pulses palpable and symetrical. Absent : calf tenderness, cyanotic, pedal edema - Neurological Exam Neurological exam: Present: CN II-XII intact, oriented X3, no focal deficits. Absent: pronater drift, facial droop, speech deficit - Skin Skin exam: Present: dry, intact <Cornelio Paulino - Last Filed: 07/27/16 16:06> Date of Encounter: 07/27/16 Date of admission: 07/24/16 00:29 Primary care physician: Amie Zhang MD Consults: 07/24/16 02:42 Consult to Billet Heater Operator [CONS] Routine Reason for SW Consult: history of alcohol use. 07/25/16 12:19 Consult to Billet Heater Operator [CONS] Routine Reason for SW Consult: drinking cessation 07/26/16 11:05 Consult to Occupational Therapy [CONS] Routine Comment: Evaluate, develop and implement POC Consult to Physical Therapy [CONS] Routine Comment: Evaluate, develop and implement POC Hospital course: Mr. Sandoval is a 61 year old male - Time Spent with Patient Total time spent providing and/or coordinating discharge services: - Constitutional Vitals: Temp Pulse Resp BP Pulse Ox 98.2 F 70 16 107/68 94 L 07/27/16 10:43 07/27/16 10:43 07/27/16 10:43 07/27/16 10:43 07/27/16 10:43 - Attending Attestation I examined this patient and my medical decision-making was reviewed with the APPLICATIONS SALES REPRESENTATIVE/PA/Advanced Practice Nurse/Resident Physician. I agree with the documented findings, disposition and treatment plan as described except to the extent set forth below. The patient was seen and examined on rounds. I agree with the physical examination findings, assessment and plan as documented by the resident Dr. Rakesh Gracia. Briefly, patient with acute alcoholic pancreatitis admitted due to abdominal pain. He has tolerated diet, is currently stable for discharge. We will discharge patient home today. Patient agreed with plan. Avoidance of alcohol intake has been strongly recommended.
--- NOTE | 2016-07-27 14:09 | Physician Discharge Referral ---
Home Health/Hosp Referral Info Transfer to: Home Health Attending Provider: Dr. Paulino Provider in Charge Post Discharge: PCP - Diagnosis (1) Acute alcoholic pancreatitis Priority: Primary Status: Acute (2) Alcohol abuse Status: Acute (3) Pseudocyst of pancreas Status: Acute (4) Adrenal incidentaloma Status: Acute (5) Ileus Status: Acute (6) Hypokalemia Status: Acute (7) DVT prophylaxis Status: Acute - Respiratory Orders None Smoking Cessation: Smoking cessation has been advised. For more information, call the [employer] Tobacco Quit Line at 1-059-VSYR-NOW. - Diet/Nutrition Diet/Nutrition Orders: No Added Salt (JENIFER) - Activity Activity Orders: Walker (up with assistance and fall precaution) - Services Needed Following services are medically necessary services: Home Health Aide, Physical Therapy, Occupational Therapy - Transfer Medications Prescriptions: Folic Acid 1 mg PO DAILY #5 tablet Thiamine (B-1) [Vitamin B-1] 100 mg PO DAILY #5 tablet Home Medications: Benazepril/Hydrochlorothiazide [Ziac 5-6.25 mg Tab] 1 tab PO DAILY 07/24/16 [ History] Cholecalciferol (Vitamin D3) [Vitamin D3] 5,000 unit PO DAILY 07/24/16 [History] ClonazePAM [Klonopin] 1 mg PO HS 07/24/16 [History] Methadone 5 mg PO Q6H 07/24/16 [History] Tizanidine HCl [Zanaflex] 4 mg PO BID 07/24/16 [History] Folic Acid 1 mg PO DAILY #5 tablet 07/27/16 [Rx] Thiamine (B-1) [Vitamin B-1] 100 mg PO DAILY #5 tablet 07/27/16 [Rx] Allergies/Adverse Reactions: Allergies No Known Allergies Allergy (Verified 07/23/16 22:09) Certification: Further, I certify that my clinical findings support that this patient is homebound (i.e. absences from home require considerable and taxing effort and are for medical reasons or oriental orthodox services or infrequently or short duration when for other reasons) because:he is having difficulty getting in/out of vehicle. Homebound Reason: Leaving home requires considerable and taxing effort due to condition Attestation: My signature below is to certify that this patient is under my care and that I, or nurse practitioner, or a physician's curatorial assistant working with me, has a face-to -face encounter with this patient.
== END 2016-07-27 14:31 | disposition home health service (06) | DRG 282 ==
LOC: EMEROO 22:04 → 3ANU 22:04 → OBSVTOIN 07-24 00:29 → SUATTDRO 07-24 00:29 → 3ANU 07-24 01:02
PROVIDERS: ADMIT Family Medicine; ATTEND Internal Medicine

== ENCOUNTER 2018-10-02 08:05 | Inpatient (IN) ==
[2018-10-02] MEDS ORDERED: Thiamine (B-1) 100 MG, Folic Acid 1 MG, MVI, adult with vitamin K 10 ML in 0.9 % Sodi... IVPB STA (08:20)
--- NOTE | 2018-10-02 08:27 | Emergency Department Note ---
Disposition Clinical Impression: Generalized weakness Pancreatitis Qualifiers: Chronicity: acute Pancreatitis type: alcohol induced Acute pancreatitis comp lication: no infection or necrosis Qualified Code(s): K85.20 - Alcohol induced acute pancreatitis without necrosis or infection Alcohol dependence Qualifiers: Substance use status: unspecified alcohol-induced disorder Qualified Code(s): F10.29 - Alcohol dependence with unspecified alcohol-induced disorder Disposition: Admitted As Inpatient Condition: Fair Referrals: Amie Zhang MD [Primary Care Provider] - Forms: ED Satisfaction Letter Time of Disposition: 10:58 General Adult HPI - General Chief complaint: ED Weakness Stated complaint: weakness/abd pain Time Seen by Provider: 10/02/18 08:12 Source: patient Mode of arrival: ambulatory Limitations: no limitations Nursing Notes Reviewed: Yes Vital Signs Reviewed: Yes - History of Present Illness HPI Narrative: Alert and oriented nontoxic-appearing 63-year-old male with a history of alcohol abuse, hypertension, and anxiety presents for evaluation of 2-3 days worth of progressively worsening generalized weakness and abdominal pain. He complains of diffuse abdominal cramping. He denies any aggravating or alleviating factors. He denies any associated nausea, vomiting, diarrhea, constipation, hematemesis, melena, or hematochezia. He denies any urinary symptoms. He denies any fever or chills. He denies any chest pain or productive cough but does describe some exertional dyspnea that began this morning. He admits to fairly consistent consumption of approximately 24 beers per day. Over the past 2 days, he has tried to schedule this back to 12 beers today. His last drink was just prior to arrival which consisted of a 12 ounce can of beer. His significant other states that he has been falling at home. The patient states that his "equilibrium is off balance". He fell last night while sitting in the bed. He fell face forward, striking his forehead against a floor. He denies any loss of consciousness. He does describe some double vision but states that this was present prior to his fall last night. He denies any loss of consciousness from that fall. Onset (ago): day(s) Location: head, abdomen Pain Scale: 7 Quality: aching Consistency: constant Improves with: nothing Worsens with: nothing Associated symptoms: Reports: shortness of breath, weakness. Denies: chest pain, cough, diaphoresis, fever/chills, nausea/vomiting - Related Data Home Medications Medication Instructions Recorded Confirmed Benazepril/Hydrochlorothiazide 1 tab PO DAILY 07/24/16 07/24/16 [Ziac 5-6.25 mg Tab] Cholecalciferol (Vitamin D3) 5,000 unit PO DAILY 07/24/16 07/24/16 [Vitamin D3] Methadone 5 mg PO Q6H 07/24/16 07/24/16 Tizanidine HCl [Zanaflex] 4 mg PO BID 07/24/16 07/24/16 clonazePAM [Klonopin] 1 mg PO HS 07/24/16 07/24/16 Previous Rx's Medication Instructions Recorded Folic Acid 1 mg PO DAILY #5 tablet 07/27/16 Thiamine (B-1) [Vitamin B-1] 100 mg PO DAILY #5 tablet 07/27/16 Allergies Allergy/AdvReac Type Severity Reaction Status Date / Time ampicillin Allergy Gastrointestinal Verified 10/02/18 08:13 Upset All systems ED: reviewed and negative except as stated. Review of Systems: As Per HPI Constitutional: Denies: fever, chills, weakness, weight change Eyes: Reports: as per HPI, vision change. Denies: eye pain, eye discharge ENT ED: Denies: ear pain, throat pain, dental pain, hearing loss, epistaxis, congestion, dysphagia Cardiovascular: Denies: chest pain, palpitations, dyspnea on exertion, edema, s yncope Respiratory: Reports: as per HPI (Double vision), dyspnea. Denies: cough, wheezes, hemoptysis, stridor Gastrointestinal: Reports: as per HPI, abdominal pain. Denies: nausea, vomiting, diarrhea, constipation, hematemesis, melena, hematochezia Genitourinary: Denies: urgency, dysuria, frequency, hematuria Musculoskeletal: Denies: back pain, neck pain, arthralgia, myalgia Integumentary: Denies: rash, abrasion, lesions Neurological: Reports: as per HPI, headache, weakness (Generalized). Denies: numbness, paresthesias, confusion, abnormal gait, vertigo Psychiatric: Denies: anxiety, depression, suicidal thoughts, homicidal thoughts, auditory hallucinations, visual hallucinations Endocrine: Denies: fatigue Hematological/Lymphatic: Denies: easy bleeding, easy bruising Allergic/Immunologic: Denies: facial swelling, urticaria Past Medical History - Past Medical History Attestation: Yes The following information was validated with the patient. Source: patient, obtained from family, nursing notes reviewed Medical history: Reports: hypertension, other Surgical history: Reports: cataract - Social History Smoking Status: Former smoker Smokeless Tobacco Status: No Alcohol use: Reports: heavy, recent Drug use: Reports: none Physical Exam - General General appearance: alert - Head Head exam: atraumatic, normocephalic, normal inspection - Expanded Head Exam Head exam physicial: Absent: laceration, abrasion, contusion, hematoma, raccoon eyes, Cisneros's sign, tenderness of temporal artery - Eye Eye exam: Present: PERRL (asymmetric pupils. the patient states this is a chronic finding, stating that he has had multiple surgeries on the left eye. left pupil sluggish and 4mm. right pupil 2mm), EOMI. Absent: scleral icterus, nystagmus - ENT ENT exam: mucous membranes moist - Neck Neck exam: Present: normal inspection, full ROM, trachea midline. Absent: tenderness - Chest Chest inspection: Present: normal inspection, symmetric chest wall rise - Respiratory Respiratory exam: Present: normal lung sounds bilaterally. Absent: respiratory distress, wheezes, stridor, accessory muscle use, prolonged expiratory phase - Cardiovascular Cardiovascular exam: Present: regular rate, normal rhythm, normal heart sounds - Abdominal Exam Abdominal exam: Present: soft, tenderness, normal bowel sounds. Absent: distention, guarding, rebound, rigidity Abdominal tenderness: Present: diffuse, mild - Extremities Exam Extremities exam: Present: normal inspection, full ROM - Back Exam Back exam: Present: normal inspection, full ROM. Absent: vertebral tenderness - Neurological Exam Neurological exam: Present: alert, oriented X3 - Psychiatric Psychiatric exam: Present: normal affect, normal mood - Skin Skin exam: Present: warm, dry, intact, normal color. Absent: rash Course Course Narrative: CT shows evidence of acute on chronic pancreatitis. I discussed this patient's case with Dr. Hernandez. Dr. Hernandez has had a [id number] evaluation with the patient. The patient will be admitted to medicine for observation and further management. 1055: I have spoken with Dr. Crisostomo, admitting hospitalist on-call. Dr. Crisostomo has accepted the patient for permission to the hospitalist services. Vital Signs Temperature 98.2 F 10/02/18 08:13 Pulse Rate 83 10/02/18 08:13 Respiratory Rate 17 10/02/18 08:13 Blood Pressure 153/85 10/02/18 08:13 O2 Sat by Pulse Oximetry 98 10/02/18 08:13 Temperature 98.2 F 10/02/18 08:13 Pulse Rate 70 10/02/18 09:53 Respiratory Rate 17 10/02/18 09:53 Blood Pressure 138/81 10/02/18 09:53 O2 Sat by Pulse Oximetry 98 10/02/18 09:53 Oxygen Delivery Oxygen Delivery Room Air Medical Decision Making - Medical Records Medical records reviewed: Yes I reviewed the patient's medical records. - Lab Data Lab results reviewed: Yes I reviewed the patient's lab results. Lab results narrative: Lab Results 10/02/18 10/02/18 10/02/18 Range/Units 08:39 08:39 08:39 WBC 9.2 (4.3-11.1) K/mcL RBC 4.28 (4.19-5.50) M/mcL Hgb 13.8 (12.9-16.9) g/dL Hct 40.8 (37.5-50.1) % MCV 95.3 (83.0-100.0) fL MCH 32.2 (28.0-33.3) pg MCHC 33.8 (31.6-35.5) g/dL RDW 14.1 (11.5-14.5) % Plt Count 176 (140-400) K/mcL MPV 10.4 (9.4-12.4) fL Immature Gran % 0.2 (0-4) % Seg Neutrophils % 73.0 % Lymphocytes % 20.2 % Monocytes % 6.2 % Eosinophils % 0.1 % Basophils % 0.3 % Neutrophils # 6.7 (1.6-8.9) K/mcL Lymphocytes # 1.9 (0.6-4.6) K/mcL Monocytes # 0.6 (0.0-1.3) K/mcL Eosinophils # 0.0 (0.0-0.6) K/mcL Basophils # 0.0 (0.0-0.2) K/mcL PT 11.1 (9.4-12.1) Seconds INR 1.0 APTT 28.3 (26.0-36.0) Seconds Sodium 137 (136-145) mEq/L Potassium 3.8 (3.5-5.1) mEq/L Chloride 96 L (98-107) mEq/L Carbon Dioxide 29 (23-29) mEq/L BUN 12 (8-23) mg/dL Creatinine 0.66 L (0.70-1.30) mg/dL Est GFR ( Amer) > 60 (> 60) Est GFR (Non-Af Amer) > 60 (> 60) BUN/Creatinine Ratio 18 (6-26) Glucose 196 H (70-105) mg/dL Calculated Osmolality 289 (280-300) Lactic Acid (0.5-2.2) mmol/L Calcium 8.7 (8.6-10.3) mg/dL Phosphorus 2.3 L (2.7-4.5) mg/dL Magnesium 1.7 (1.6-2.6) mg/dL Total Bilirubin 0.5 (0.3-1.0) mg/dL Direct Bilirubin 0.1 (0.0-0.2) mg/dL Indirect Bilirubin 0.4 (0.0-1.2) mg/dL AST 66 H (13-39) Units/L ALT 34 (7-52) Units/L Alkaline Phosphatase 56 (34-104) Units/L Troponin I < 0.03 (< 0.04) ng/mL Serum Total Protein 6.8 (6.4-8.9) g/dL Albumin 3.7 (3.5-5.7) g/dL Globulin 3.1 (2.4-3.5) g/dL Albumin/Globulin Ratio 1.2 (1.1-2.2) Amylase 168 H (29-103) Units/L Lipase 696 H (11-82) Units/L Urine Color (Yellow) Urine Clarity (Clear) Urine pH (5.0-8.0) pH Units Ur Specific [place] (1.010-1.025) Urine Protein (Neg-Trace) mg/dL Urine Glucose (UA) (Normal) mg/dL Urine Ketones (Negative) mg/dL Urine Blood (Negative) Urine Nitrite (Negative) Urine Bilirubin (Negative) Urine Urobilinogen (Normal) mg/dL Ur Leukocyte Esterase (Negative) Ur Culture Indicated? (NO) 04/10/19 04/10/19 Range/Units 08:39 10:22 WBC (4.3-11.1) K/mcL RBC (4.19-5.50) M/mcL Hgb (12.9-16.9) g/dL Hct (37.5-50.1) % MCV (83.0-100.0) fL MCH (28.0-33.3) pg MCHC (31.6-35.5) g/dL RDW (11.5-14.5) % Plt Count (140-400) K/mcL MPV (9.4-12.4) fL Immature Gran % (0-4) % Seg Neutrophils % % Lymphocytes % % Monocytes % % Eosinophils % % Basophils % % Neutrophils # (1.6-8.9) K/mcL Lymphocytes # (0.6-4.6) K/mcL Monocytes # (0.0-1.3) K/mcL Eosinophils # (0.0-0.6) K/mcL Basophils # (0.0-0.2) K/mcL PT (9.4-12.1) Seconds INR APTT (26.0-36.0) Seconds Sodium (136-145) mEq/L Potassium (3.5-5.1) mEq/L Chloride (98-107) mEq/L Carbon Dioxide (23-29) mEq/L BUN (8-23) mg/dL Creatinine (0.70-1.30) mg/dL Est GFR ( Amer) (> 60) Est GFR (Non-Af Amer) (> 60) BUN/Creatinine Ratio (6-26) Glucose (70-105) mg/dL Calculated Osmolality (280-300) Lactic Acid 2.4 H (0.5-2.2) mmol/L Calcium (8.6-10.3) mg/dL Phosphorus (2.7-4.5) mg/dL Magnesium (1.6-2.6) mg/dL Total Bilirubin (0.3-1.0) mg/dL Direct Bilirubin (0.0-0.2) mg/dL Indirect Bilirubin (0.0-1.2) mg/dL AST (13-39) Units/L ALT (7-52) Units/L Alkaline Phosphatase (34-104) Units/L Troponin I (< 0.04) ng/mL Serum Total Protein (6.4-8.9) g/dL Albumin (3.5-5.7) g/dL Globulin (2.4-3.5) g/dL Albumin/Globulin Ratio (1.1-2.2) Amylase (29-103) Units/L Lipase (11-82) Units/L Urine Color Yellow (Yellow) Urine Clarity Clear (Clear) Urine pH 6.5 (5.0-8.0) pH Units Ur Specific [place] 1.019 (1.010-1.025) Urine Protein Negative (Neg-Trace) mg/dL Urine Glucose (UA) 250 H (Normal) mg/dL Urine Ketones Negative (Negative) mg/dL Urine Blood Negative (Negative) Urine Nitrite Negative (Negative) Urine Bilirubin Negative (Negative) Urine Urobilinogen Normal (Normal) mg/dL Ur Leukocyte Esterase Negative (Negative) Ur Culture Indicated? NO (NO) Result diagrams: 10/02/18 08:39 10/02/18 08:39 Lab Results 10/02/18 10/02/18 10/02/18 Range/Units 08:39 08:39 08:39 WBC 9.2 (4.3-11.1) K/mcL RBC 4.28 (4.19-5.50) M/mcL Hgb 13.8 (12.9-16.9) g/dL Hct 40.8 (37.5-50.1) % MCV 95.3 (83.0-100.0) fL MCH 32.2 (28.0-33.3) pg MCHC 33.8 (31.6-35.5) g/dL RDW 14.1 (11.5-14.5) % Plt Count 176 (140-400) K/mcL MPV 10.4 (9.4-12.4) fL Immature Gran % 0.2 (0-4) % Seg Neutrophils % 73.0 % Lymphocytes % 20.2 % Monocytes % 6.2 % Eosinophils % 0.1 % Basophils % 0.3 % Neutrophils # 6.7 (1.6-8.9) K/mcL Lymphocytes # 1.9 (0.6-4.6) K/mcL Monocytes # 0.6 (0.0-1.3) K/mcL Eosinophils # 0.0 (0.0-0.6) K/mcL Basophils # 0.0 (0.0-0.2) K/mcL PT 11.1 (9.4-12.1) Seconds INR 1.0 APTT 28.3 (26.0-36.0) Seconds Sodium 137 (136-145) mEq/L Potassium 3.8 (3.5-5.1) mEq/L Chloride 96 L (98-107) mEq/L Carbon Dioxide 29 (23-29) mEq/L BUN 12 (8-23) mg/dL Creatinine 0.66 L (0.70-1.30) mg/dL Est GFR ( Amer) > 60 (> 60) Est GFR (Non-Af Amer) > 60 (> 60) BUN/Creatinine Ratio 18 (6-26) Glucose 196 H (70-105) mg/dL Calculated Osmolality 289 (280-300) Lactic Acid (0.5-2.2) mmol/L Calcium 8.7 (8.6-10.3) mg/dL Phosphorus 2.3 L (2.7-4.5) mg/dL Magnesium 1.7 (1.6-2.6) mg/dL Total Bilirubin 0.5 (0.3-1.0) mg/dL Direct Bilirubin 0.1 (0.0-0.2) mg/dL Indirect Bilirubin 0.4 (0.0-1.2) mg/dL AST 66 H (13-39) Units/L ALT 34 (7-52) Units/L Alkaline Phosphatase 56 (34-104) Units/L Troponin I < 0.03 (< 0.04) ng/mL Serum Total Protein 6.8 (6.4-8.9) g/dL Albumin 3.7 (3.5-5.7) g/dL Globulin 3.1 (2.4-3.5) g/dL Albumin/Globulin Ratio 1.2 (1.1-2.2) Amylase 168 H (29-103) Units/L Lipase 696 H (11-82) Units/L Urine Color (Yellow) Urine Clarity (Clear) Urine pH (5.0-8.0) pH Units Ur Specific [place] (1.010-1.025) Urine Protein (Neg-Trace) mg/dL Urine Glucose (UA) (Normal) mg/dL Urine Ketones (Negative) mg/dL Urine Blood (Negative) Urine Nitrite (Negative) Urine Bilirubin (Negative) Urine Urobilinogen (Normal) mg/dL Ur Leukocyte Esterase (Negative) Ur Culture Indicated? (NO) 10/02/18 10/02/18 Range/Units 08:39 10:22 WBC (4.3-11.1) K/mcL RBC (4.19-5.50) M/mcL Hgb (12.9-16.9) g/dL Hct (37.5-50.1) % MCV (83.0-100.0) fL MCH (28.0-33.3) pg MCHC (31.6-35.5) g/dL RDW (11.5-14.5) % Plt Count (140-400) K/mcL MPV (9.4-12.4) fL Immature Gran % (0-4) % Seg Neutrophils % % Lymphocytes % % Monocytes % % Eosinophils % % Basophils % % Neutrophils # (1.6-8.9) K/mcL Lymphocytes # (0.6-4.6) K/mcL Monocytes # (0.0-1.3) K/mcL Eosinophils # (0.0-0.6) K/mcL Basophils # (0.0-0.2) K/mcL PT (9.4-12.1) Seconds INR APTT (26.0-36.0) Seconds Sodium (136-145) mEq/L Potassium (3.5-5.1) mEq/L Chloride (98-107) mEq/L Carbon Dioxide (23-29) mEq/L BUN (8-23) mg/dL Creatinine (0.70-1.30) mg/dL Est GFR ( Amer) (> 60) Est GFR (Non-Af Amer) (> 60) BUN/Creatinine Ratio (6-26) Glucose (70-105) mg/dL Calculated Osmolality (280-300) Lactic Acid 2.4 H (0.5-2.2) mmol/L Calcium (8.6-10.3) mg/dL Phosphorus (2.7-4.5) mg/dL Magnesium (1.6-2.6) mg/dL Total Bilirubin (0.3-1.0) mg/dL Direct Bilirubin (0.0-0.2) mg/dL Indirect Bilirubin (0.0-1.2) mg/dL AST (13-39) Units/L ALT (7-52) Units/L Alkaline Phosphatase (34-104) Units/L Troponin I (< 0.04) ng/mL Serum Total Protein (6.4-8.9) g/dL Albumin (3.5-5.7) g/dL Globulin (2.4-3.5) g/dL Albumin/Globulin Ratio (1.1-2.2) Amylase (29-103) Units/L Lipase (11-82) Units/L Urine Color Yellow (Yellow) Urine Clarity Clear (Clear) Urine pH 6.5 (5.0-8.0) pH Units Ur Specific [place] 1.019 (1.010-1.025) Urine Protein Negative (Neg-Trace) mg/dL Urine Glucose (UA) 250 H (Normal) mg/dL Urine Ketones Negative (Negative) mg/dL Urine Blood Negative (Negative) Urine Nitrite Negative (Negative) Urine Bilirubin Negative (Negative) Urine Urobilinogen Normal (Normal) mg/dL Ur Leukocyte Esterase Negative (Negative) Ur Culture Indicated? NO (NO) - Radiology Data Radiology results reviewed: Yes I reviewed the patient's radiology results. Abdomen/Pelvis CT 10/02/18 08:19 IMPRESSION: 1. Findings are consistent with acute on chronic pancreatitis, without evidence of a pancreatic mass, pseudocyst, or abscess. 2. Stable bilateral adrenal adenomas. 3. Diffuse hepatic steatosis. D/ / 10/02/2018 10:15:17 Franklin Lima MD / [facility] Interpreting Provider: Franklin Lima MD Cervical Spine CT 10/02/18 08:19 IMPRESSION: No acute abnormality of the cervical spine. Moderate spondylosis of the lower cervical spine. Mild facet arthropathy. [id number] bony foraminal stenosis on the left at C5-C6. D/ / Gómez Boateng MD / Gómez Boateng MD Interpreting Provider: Gómez Boateng MD Chest X-Ray 10/02/18 08:19 IMPRESSION: Left basilar atelectasis, otherwise no acute cardiopulmonary process. D/ / 10/02/2018 08:44:27 Nathanael Medellin MD / [facility] Interpreting Provider: Nathanael Medellin MD Head CT 10/02/18 08:19 IMPRESSION: No acute intracranial abnormality. Acute left sphenoid sinusitis. Mild cerebral atrophy appropriate for age. 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 D/ / Gómez Boateng MD / Gómez Boateng MD Interpreting Provider: Gómez Boateng MD - EKG Data EKG #1 EKG attestation: Yes I reviewed and interpreted this EKG. EKG results narrative: EKG shows a sinus rhythm at a rate of [address] interval 177, QRS duration 98, QT/QTc interval 377/441. No ectopy noted. No ST elevations. No old EKG available for comparison.
[2018-10-02] MEDS ORDERED: Thiamine (B-1) 100 MG TABLET PO STA (08:31)
[2018-10-02] MEDS ORDERED: Folic Acid 1 MG, MVI, adult with vitamin K 10 ML in 0.9 % Sodium Chloride 500 ML IVPB STA (08:31)
[2018-10-02 08:58] LABS: Basophils % 0.3 %; Eosinophils % 0.1 %; Hematocrit 40.8 % (37.5-50.1); Hemoglobin 13.8 g/dL (12.9-16.9); Immature Granulocytes % 0.2 % (0-4); Lymphocytes # 1.9 K/mcL (0.6-4.6); Lymphocytes % 20.2 %; Mean Corpuscular HGB Conc 33.8 g/dL (31.6-35.5); Mean Corpuscular Hemoglobin 32.2 pg (28.0-33.3); Mean Corpuscular Volume 95.3 fL (83.0-100.0); Mean Platelet Volume 10.4 fL (9.4-12.4); Monocytes # 0.6 K/mcL (0.0-1.3); Monocytes % 6.2 %; Neutrophils # 6.7 K/mcL (1.6-8.9); Platelet Count 176 K/mcL (140-400); Red Blood Count 4.28 M/mcL (4.19-5.50); Red Cell Distribution Width 14.1 % (11.5-14.5)
[2018-10-02 09:07] LABS: Prothrombin Time 11.1 Seconds (9.4-12.1)
[2018-10-02 09:10] LABS: Activated Partial Thrombo Time 28.3 Seconds (26.0-36.0)
[2018-10-02] MEDS ORDERED: 0.9 % Sodium Chloride 1,000 ML IVC ONE (09:13)
[2018-10-02 09:46] LABS: Alanine Aminotransferase 34 Units/L (7-52); Albumin 3.7 g/dL (3.5-5.7); Albumin/Globulin Ratio 1.2 (1.1-2.2); Alkaline Phosphatase 56 Units/L (34-104); Amylase 168 Units/L (29-103); Aspartate Amino Transferase 66 Units/L (13-39); BUN/Creatinine Ratio 18 (6-26); Bilirubin,Direct 0.1 mg/dL (0.0-0.2); Bilirubin,Indirect 0.4 mg/dL (0.0-1.2); Bilirubin,Total 0.5 mg/dL (0.3-1.0); Blood Urea Nitrogen 12 mg/dL (8-23); Calcium 8.7 mg/dL (8.6-10.3); Carbon Dioxide 29 mEq/L (23-29); Chloride 96 mEq/L (98-107); Globulin 3.1 g/dL (2.4-3.5); Glucose 196 mg/dL (70-105); Lipase 696 Units/L (11-82); Magnesium 1.7 mg/dL (1.6-2.6); Osmolality,Calculated 289 (280-300); Phosphorous 2.3 mg/dL (2.7-4.5); Potassium 3.8 mEq/L (3.5-5.1); Sodium 137 mEq/L (136-145); Total Protein 6.8 g/dL (6.4-8.9); Troponin I < 0.03 ng/mL (< 0.04); eGFR For Non-African Americans > 60 (> 60)
--- NOTE | 2018-10-02 09:50 | Emergency Department Note ---
Disposition Clinical Impression: Pancreatitis, Alcohol dependence, Generalized weakness Disposition: Admitted As Inpatient Condition: Fair General Adult HPI - General Chief complaint: ED Weakness Stated complaint: weakness/abd pain Time Seen by Provider: 10/02/18 08:12 Source: patient Mode of arrival: ambulatory Limitations: no limitations - History of Present Illness Location: head, abdomen Pain Scale: 7 Quality: aching Improves with: nothing Worsens with: nothing Associated symptoms: Reports: shortness of breath, weakness. Denies: chest pain, cough, diaphoresis, fever/chills, nausea/vomiting - Related Data Home Medications Medication Instructions Recorded Confirmed Benazepril/Hydrochlorothiazide 1 tab PO DAILY 07/24/16 07/24/16 [Ziac 5-6.25 mg Tab] Cholecalciferol (Vitamin D3) 5,000 unit PO DAILY 07/24/16 07/24/16 [Vitamin D3] Methadone 5 mg PO Q6H 07/24/16 07/24/16 Tizanidine HCl [Zanaflex] 4 mg PO BID 07/24/16 07/24/16 clonazePAM [Klonopin] 1 mg PO HS 07/24/16 07/24/16 Previous Rx's Medication Instructions Recorded Folic Acid 1 mg PO DAILY #5 tablet 07/27/16 Thiamine (B-1) [Vitamin B-1] 100 mg PO DAILY #5 tablet 07/27/16 Allergies Allergy/AdvReac Type Severity Reaction Status Date / Time ampicillin Allergy Gastrointestinal Verified 10/02/18 08:13 Upset Constitutional: Denies: fever, chills, weakness, weight change Eyes: Reports: as per HPI, vision change. Denies: eye pain, eye discharge ENT ED: Denies: ear pain, throat pain, dental pain, hearing loss, epistaxis, congestion, dysphagia Cardiovascular: Denies: chest pain, palpitations, dyspnea on exertion, edema, syncope Respiratory: Reports: as per HPI (Double vision), dyspnea. Denies: cough, whee zes, hemoptysis, stridor Gastrointestinal: Reports: as per HPI, abdominal pain. Denies: nausea, vomiting, diarrhea, constipation, hematemesis, melena, hematochezia Genitourinary: Denies: urgency, dysuria, frequency, hematuria Musculoskeletal: Denies: back pain, neck pain, arthralgia, myalgia Integumentary: Denies: rash, abrasion, lesions Neurological: Reports: as per HPI, headache, weakness (Generalized). Denies: numbness, paresthesias, confusion, abnormal gait, vertigo Psychiatric: Denies: anxiety, depression, suicidal thoughts, homicidal thoughts, auditory hallucinations, visual hallucinations Endocrine: Denies: fatigue Hematological/Lymphatic: Denies: easy bleeding, easy bruising Allergic/Immunologic: Denies: facial swelling, urticaria Past Medical History - Past Medical History Medical history: Reports: hypertension, other Surgical history: Reports: cataract - Social History Smoking Status: Former smoker Smokeless Tobacco Status: No Alcohol use: Reports: heavy, recent Drug use: Reports: none Physical Exam - General Limitations: no limitations General appearance: alert Course Vital Signs Temperature 98.2 F 10/02/18 08:13 Pulse Rate 83 10/02/18 08:13 Respiratory Rate 17 10/02/18 08:13 Blood Pressure 153/85 10/02/18 08:13 O2 Sat by Pulse Oximetry 98 10/02/18 08:13 Temperature 98.2 F 10/02/18 08:13 Pulse Rate 73 10/02/18 12:08 Respiratory Rate 17 10/02/18 09:53 Blood Pressure 165/103 10/02/18 12:08 O2 Sat by Pulse Oximetry 97 10/02/18 12:08 Oxygen Delivery Oxygen Delivery Room Air Medical Decision Making - Lab Data Result diagrams: 10/02/18 08:39 10/02/18 08:39 Lab Results 10/02/18 10/02/18 10/02/18 Range/Units 08:39 08:39 08:39 WBC 9.2 (4.3-11.1) K/mcL RBC 4.28 (4.19-5.50) M/mcL Hgb 13.8 (12.9-16.9) g/dL Hct 40.8 (37.5-50.1) % MCV 95.3 (83.0-100.0) fL MCH 32.2 (28.0-33.3) pg MCHC 33.8 (31.6-35.5) g/dL RDW 14.1 (11.5-14.5) % Plt Count 176 (140-400) K/mcL MPV 10.4 (9.4-12.4) fL Immature Gran % 0.2 (0-4) % Seg Neutrophils % 73.0 % Lymphocytes % 20.2 % Monocytes % 6.2 % Eosinophils % 0.1 % Basophils % 0.3 % Neutrophils # 6.7 (1.6-8.9) K/mcL Lymphocytes # 1.9 (0.6-4.6) K/mcL Monocytes # 0.6 (0.0-1.3) K/mcL Eosinophils # 0.0 (0.0-0.6) K/mcL Basophils # 0.0 (0.0-0.2) K/mcL PT 11.1 (9.4-12.1) Seconds INR 1.0 APTT 28.3 (26.0-36.0) Seconds Sodium 137 (136-145) mEq/L Potassium 3.8 (3.5-5.1) mEq/L Chloride 96 L (98-107) mEq/L Carbon Dioxide 29 (23-29) mEq/L BUN 12 (8-23) mg/dL Creatinine 0.66 L (0.70-1.30) mg/dL Est GFR ( Amer) > 60 (> 60) Est GFR (Non-Af Amer) > 60 (> 60) BUN/Creatinine Ratio 18 (6-26) Glucose 196 H (70-105) mg/dL Calculated Osmolality 289 (280-300) Lactic Acid (0.5-2.2) mmol/L Calcium 8.7 (8.6-10.3) mg/dL Phosphorus 2.3 L (2.7-4.5) mg/dL Magnesium 1.7 (1.6-2.6) mg/dL Total Bilirubin 0.5 (0.3-1.0) mg/dL Direct Bilirubin 0.1 (0.0-0.2) mg/dL Indirect Bilirubin 0.4 (0.0-1.2) mg/dL AST 66 H (13-39) Units/L ALT 34 (7-52) Units/L Alkaline Phosphatase 56 (34-104) Units/L Troponin I < 0.03 (< 0.04) ng/mL Serum Total Protein 6.8 (6.4-8.9) g/dL Albumin 3.7 (3.5-5.7) g/dL Globulin 3.1 (2.4-3.5) g/dL Albumin/Globulin Ratio 1.2 (1.1-2.2) Amylase 168 H (29-103) Units/L Lipase 696 H (11-82) Units/L Urine Color (Yellow) Urine Clarity (Clear) Urine pH (5.0-8.0) pH Units Ur Specific [place] (1.010-1.025) Urine Protein (Neg-Trace) mg/dL Urine Glucose (UA) (Normal) mg/dL Urine Ketones (Negative) mg/dL Urine Blood (Negative) Urine Nitrite (Negative) Urine Bilirubin (Negative) Urine Urobilinogen (Normal) mg/dL Ur Leukocyte Esterase (Negative) Ur Culture Indicated? (NO) 10/02/18 10/02/18 Range/Units 08:39 10:22 WBC (4.3-11.1) K/mcL RBC (4.19-5.50) M/mcL Hgb (12.9-16.9) g/dL Hct (37.5-50.1) % MCV (83.0-100.0) fL MCH (28.0-33.3) pg MCHC (31.6-35.5) g/dL RDW (11.5-14.5) % Plt Count (140-400) K/mcL MPV (9.4-12.4) fL Immature Gran % (0-4) % Seg Neutrophils % % Lymphocytes % % Monocytes % % Eosinophils % % Basophils % % Neutrophils # (1.6-8.9) K/mcL Lymphocytes # (0.6-4.6) K/mcL Monocytes # (0.0-1.3) K/mcL Eosinophils # (0.0-0.6) K/mcL Basophils # (0.0-0.2) K/mcL PT (9.4-12.1) Seconds INR APTT (26.0-36.0) Seconds Sodium (136-145) mEq/L Potassium (3.5-5.1) mEq/L Chloride (98-107) mEq/L Carbon Dioxide (23-29) mEq/L BUN (8-23) mg/dL Creatinine (0.70-1.30) mg/dL Est GFR ( Amer) (> 60) Est GFR (Non-Af Amer) (> 60) BUN/Creatinine Ratio (6-26) Glucose (70-105) mg/dL Calculated Osmolality (280-300) Lactic Acid 2.4 H (0.5-2.2) mmol/L Calcium (8.6-10.3) mg/dL Phosphorus (2.7-4.5) mg/dL Magnesium (1.6-2.6) mg/dL Total Bilirubin (0.3-1.0) mg/dL Direct Bilirubin (0.0-0.2) mg/dL Indirect Bilirubin (0.0-1.2) mg/dL AST (13-39) Units/L ALT (7-52) Units/L Alkaline Phosphatase (34-104) Units/L Troponin I (< 0.04) ng/mL Serum Total Protein (6.4-8.9) g/dL Albumin (3.5-5.7) g/dL Globulin (2.4-3.5) g/dL Albumin/Globulin Ratio (1.1-2.2) Amylase (29-103) Units/L Lipase (11-82) Units/L Urine Color Yellow (Yellow) Urine Clarity Clear (Clear) Urine pH 6.5 (5.0-8.0) pH Units Ur Specific [place] 1.019 (1.010-1.025) Urine Protein Negative (Neg-Trace) mg/dL Urine Glucose (UA) 250 H (Normal) mg/dL Urine Ketones Negative (Negative) mg/dL Urine Blood Negative (Negative) Urine Nitrite Negative (Negative) Urine Bilirubin Negative (Negative) Urine Urobilinogen Normal (Normal) mg/dL Ur Leukocyte Esterase Negative (Negative) Ur Culture Indicated? NO (NO) Attestation Statement - Attestation Attestation: For this encounter, I have reviewed the TRAVEL ASSISTANT or PA documentation, treatment plan, and medical decision making; and I have had face to face time with this patient. Patient eating when abdominal pain. Patient is an every day to 12 pack per day. Has recently cut back. Shakiness. Abdominal pain that is diffuse. He also had a fall last night where he hit his head. His abdominal pain is upper abdomen on examination. He is uncomfortable and shaking. Plan. Ativan. Pain control. CT scan shows acute on chronic pancreatitis. We will admit. Abdomen/Pelvis CT 10/02/18 08:19 IMPRESSION: 1. Findings are consistent with acute on chronic pancreatitis, without evidence of a pancreatic mass, pseudocyst, or abscess. 2. Stable bilateral adrenal adenomas. 3. Diffuse hepatic steatosis. D/ / 10/02/2018 10:15:17 Franklin Lima MD / earnold Interpreting Provider: Franklin Lima MD Cervical Spine CT 10/02/18 08:19 IMPRESSION: No acute abnormality of the cervical spine. Moderate spondylosis of the lower cervical spine. Mild facet arthropathy. [id number] bony foraminal stenosis on the left at C5-C6. D/ / Gómez Boateng MD / Gómez Boateng MD Interpreting Provider: Gómez Boateng MD Chest X-Ray 10/02/18 08:19 IMPRESSION: Left basilar atelectasis, otherwise no acute cardiopulmonary process. D/ / 10/02/2018 08:44:27 Nathanael Medellin MD / darling Interpreting Provider: Nathanael Medellin MD Head CT 10/02/18 08:19 IMPRESSION: No acute intracranial abnormality. Acute left sphenoid sinusitis. Mild cerebral atrophy appropriate for age. 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 D/ / Gómez Boateng MD / Gómez Boateng MD Interpreting Provider: Gómez Boateng MD
[2018-10-02] MEDS ORDERED: *HR* FentaNYL (PF) 100 MCG/2 ML VIAL IVP ONE (10:25)
[2018-10-02] MEDS ORDERED: *HR* LORazepam 2 MG/ML VIAL IVP ONE (10:25)
[2018-10-02 10:53] LABS: Bilirubin,Urine Negative (Negative); Blood,Urine Negative (Negative); Clarity,Urine Clear (Clear); Color,Urine Yellow (Yellow); Glucose,Urine (UA) 250 mg/dL (Normal); Ketones,Urine Negative (Negative); Leukocyte Esterase,Urine Negative (Negative); Nitrite,Urine Negative (Negative); PH,Urine 6.5 pH Units (5.0-8.0); Protein,Urine Negative (Neg-Trace); Specific Gravity,Urine 1.019 (1.010-1.025); Urobilinogen,Urine Normal (Normal)
[2018-10-02] MEDS ORDERED: *HR* Morphine 2 MG/ML SYRINGE IVP ONE (11:46)
--- NOTE | 2018-10-02 12:14 | Electrocardiograph Report ---
[place] [employer] Test Date: 2018-10-02 Pat Name: Jason Sandoval Department: [id number] Room: 3A11 Gender: M [employer]: : 1955 Requested By: Jacob Tao Order Number: [id number] Reading MD: Tonny Mai Measurements Intervals [place] Rate: 82 P: 63 MI: 177 QRS: 29 QRSD: 98 T: 20 QT: 377 QTc: 441 Interpretive Statements Sinus rhythm Electronically Signed On 10-02-2018 12:12:46 EDT by Tonny Mai
[2018-10-02] MEDS ORDERED: *HR* LORazepam 2 MG/ML VIAL IVP PRN (13:16)
--- NOTE | 2018-10-02 13:19 | Internal Med History&Physical ---
Date of Encounter: 10/02/18 Time of Encounter: 11:00 Internal Medicine - H&P: HPI Chief complaint: Abdominal pain Admitted From: Home Plans for Post Hospital Care: Home History of present illness: Patient is a 63-year-old male with past medical history significant for pancreatitis, alcohol dependence/abuse and hypertension who presents to the ER due to unsteady gait with falls and abdominal pain. Patient reports of having acute onset of abdominal pain for the last week does get worse with no radiation or provoking/relieving factors. Patient denies any associated symptoms of nausea/vomiting. In addition patient also reports of unsteady gait with falls. In the ER, patient was found to have a lipase of 696 and amylase of 168. ET of the abdomen/pelvis also revealed acute on chronic hepatitis. Patient will be admitted to the medical floor for acute on chronic hepatitis and alcohol withdrawal. Past Med Surg Social Fam HX - Past Medical History Medical history: hypertension, other Additional medical history: pancreatitis. neuropathy - Past Surgical History Surgical History: cataract Additional surgical history: cataracts - Social History Smoking Status: Former smoker Smokeless Tobacco Status: No Alcohol use: heavy, recent Drug use: none - Additional Family History Additional family history: Reviewed and noncontributory Internal Medicine - H&P: Meds Cholecalciferol (Vitamin D3) [Vitamin D3] 5,000 unit PO DAILY 07/24/16 [History] Tizanidine HCl [Zanaflex] 4 mg PO BID 07/24/16 [History] Thiamine (B-1) [Vitamin B-1] 100 mg PO DAILY #5 tablet 07/27/16 [Rx] Allergy/AdvReac Type Severity Reaction Status Date / Time ampicillin Allergy Gastrointestinal Verified 10/02/18 08:13 Upset All Systems PM: A 10-system review of systems was performed and is negative for pertinent fin dings except as documented above in the HPI. - Constitutional Vitals: Temp Pulse Resp BP Pulse Ox 98.2 F 73 17 165/103 97 10/02/18 08:13 10/02/18 12:08 10/02/18 09:53 10/02/18 12:08 10/02/18 12:08 Exam: General appearance: Present: A&O X 3, no acute distress - Head Head exam: Present: normocephalic - Eye Eye exam: Present: normal appearance - ENT ENT exam: Present: mucous membranes moist - Respiratory Respiratory exam: Present: CTAB. Absent: accessory muscle use, rales, rhonchi, wheezes - Cardiovascular Cardiovascular exam: Present: RRR, +S1, +S2. Absent: diastolic murmur, gallop, rubs, systolic murmur - GI/Abdominal GI/Abdominal exam: Present: Epigastric tenderness to palpation on exam - Extremities Exam Extremities exam: Absent: pedal edema - Neurological Exam Neurological exam: Present: alert, oriented X3, no focal deficits. Absent: altered - Psychiatric Psychiatric exam: -normal mood Skin exam: -normal color Internal Med - H&P Results - Labs CBC & Chem 7: 10/02/18 08:39 10/02/18 08:39 Labs: Short CBC 10/02/18 Range/Units 08:39 WBC 9.2 (4.3-11.1) K/mcL Hgb 13.8 (12.9-16.9) g/dL Hct 40.8 (37.5-50.1) % Plt Count 176 (140-400) K/mcL Neutrophils # 6.7 (1.6-8.9) K/mcL BMP 10/02/18 08:39 Sodium 137 Potassium 3.8 Chloride 96 L Carbon Dioxide 29 BUN 12 Creatinine 0.66 L Glucose 196 H Calcium 8.7 Cardiac Enzymes 10/02/18 Range/Units 08:39 Troponin I < 0.03 (< 0.04) ng/mL Liver Function 10/02/18 Range/Units 08:39 Total Bilirubin 0.5 (0.3-1.0) mg/dL Direct Bilirubin 0.1 (0.0-0.2) mg/dL AST 66 H (13-39) Units/L ALT 34 (7-52) Units/L Alkaline Phosphatase 56 (34-104) Units/L Albumin 3.7 (3.5-5.7) g/dL Urine 10/02/18 Range/Units 10:22 Urine Color Yellow (Yellow) Urine Clarity Clear (Clear) Urine pH 6.5 (5.0-8.0) pH Units Ur Specific [place] 1.019 (1.010-1.025) Urine Protein Negative (Neg-Trace) mg/dL Urine Glucose (UA) 250 H (Normal) mg/dL - Impressions ITS Impressions Abdomen/Pelvis CT 10/02/18 08:19 IMPRESSION: 1. Findings are consistent with acute on chronic pancreatitis, without evidence of a pancreatic mass, pseudocyst, or abscess. 2. Stable bilateral adrenal adenomas. 3. Diffuse hepatic steatosis. D/ / 10/02/2018 10:15:17 Franklin Lima MD / earnold Interpreting Provider: Franklin Lima MD Cervical Spine CT 10/02/18 08:19 IMPRESSION: No acute abnormality of the cervical spine. Moderate spondylosis of the lower cervical spine. Mild facet arthropathy. [id number] bony foraminal stenosis on the left at C5-C6. D/ / Gómez Boateng MD / Gómez Boateng MD Interpreting Provider: Gómez Boateng MD Chest X-Ray 10/02/18 08:19 IMPRESSION: Left basilar atelectasis, otherwise no acute cardiopulmonary process. D/ / 10/02/2018 08:44:27 Nathanael Medellin MD / [email or web address] Interpreting Provider: Nathanael Medellin MD Head CT 10/02/18 08:19 IMPRESSION: No acute intracranial abnormality. Acute left sphenoid sinusitis. Mild cerebral atrophy appropriate for age. 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 D/ / Gómez Boateng MD / Gómez Boateng MD Interpreting Provider: Gómez Boateng MD - Assessment and Plan (1) Acute alcoholic pancreatitis Current Visit: No Status: Acute Assessment and plan: Patient with a long-standing history of alcohol dependence/abuse presents with epigastric pain. In the ER, patient was found to have a lipase of 696 and amylase of 168. ET of the abdomen/pelvis also revealed acute on chronic hepatitis. Will keep patient nothing by mouth and give IV fluids with pain control Qualifiers: Acute pancreatitis complication: unspecified Qualified Code(s): K85.20 - Alcohol induced acute pancreatitis without necrosis or infection (2) Alcohol dependence Current Visit: Yes Status: Chronic Assessment and plan: Will cover with CIWA protocol Qualifiers: Substance use status: unspecified alcohol-induced disorder Qualified Code(s): F10.29 - Alcohol dependence with unspecified alcohol-induced disorder (3) Generalized weakness Current Visit: Yes Status: Acute Assessment and plan: Patient reports of unsteady gait with frequent falls Suspect secondary to chronic alcohol abuse/dependence (4) HTN (hypertension) Current Visit: No Status: Chronic Assessment and plan: Continue home medications Qualifiers: Qualified Code(s): I10 - Essential (primary) hypertension (5) DVT prophylaxis Current Visit: No Status: Acute Assessment and plan: Subcutaneous heparin - Time Spent With Patient Total time spent is greater than 50% in coordination of care (as documented) at patient's floor/unit and/or counseling patient:
[2018-10-02] MEDS ORDERED: Naloxone 0.4 MG/ML INJ IVP PRN (13:27)
[2018-10-02] MEDS: *HR* LORazepam 2 MG/ML VIAL IVP PRN ×3 (15:06→20:12)
[2018-10-02] MEDS: 0.9 % Sodium Chloride 1,000 ML IVC SCH (15:20)
[2018-10-02] MEDS: Ketorolac 30 MG/ML VIAL IVP PRN (15:21)
[2018-10-02] MEDS: Ondansetron 4 MG/2 ML VIAL IVP PRN (18:05)
[2018-10-02] MEDS: *HR* Heparin 5,000 UNIT/ML VIAL SQ SCH (19:04)
[2018-10-02] MEDS: tiZANidine 4 MG TABLET PO SCH (20:10)
[2018-10-02] MEDS: MORPHINE SUL Oral CONC 10 MG/0.5 ML ORAL.SYG SL PRN (20:24)
[2018-10-02] MEDS: *HR* Promethazine 25 MG/ML VIAL IVP PRN (22:38)
[2018-10-03] MEDS ORDERED: diazePAM 10 MG/2 ML SYRINGE IVP ONE (00:03)
[2018-10-03] MEDS: 0.9 % Sodium Chloride 1,000 ML IVC SCH (00:30)
[2018-10-03 00:43] LABS: Basophils % 0.2 %; Hematocrit 38.5 % (37.5-50.1); Hemoglobin 13.1 g/dL (12.9-16.9); Immature Granulocytes % 0.3 % (0-4); Lymphocytes # 1.7 K/mcL (0.6-4.6); Lymphocytes % 14.9 %; Mean Corpuscular Hemoglobin 32.6 pg (28.0-33.3); Mean Corpuscular Volume 95.8 fL (83.0-100.0); Mean Platelet Volume 10.9 fL (9.4-12.4); Monocytes # 0.7 K/mcL (0.0-1.3); Monocytes % 5.9 %; Platelet Count 150 K/mcL (140-400); Red Blood Count 4.02 M/mcL (4.19-5.50); Red Cell Distribution Width 13.7 % (11.5-14.5); Segmented Neutrophils % 78.7 %
[2018-10-03 00:57] LABS: BUN/Creatinine Ratio 11 (6-26); Blood Urea Nitrogen 7 mg/dL (8-23); Carbon Dioxide 27 mEq/L (23-29); Chloride 98 mEq/L (98-107); Glucose 129 mg/dL (70-105); Osmolality,Calculated 278 (280-300); Potassium 3.1 mEq/L (3.5-5.1); Sodium 134 mEq/L (136-145); eGFR For Non-African Americans > 60 (> 60)
[2018-10-03] MEDS: MORPHINE SUL Oral CONC 10 MG/0.5 ML ORAL.SYG SL PRN ×4 (01:23→23:11)
[2018-10-03] MEDS: *HR* LORazepam 2 MG/ML VIAL IVP PRN ×4 (02:15→21:14)
[2018-10-03] MEDS: Ondansetron 4 MG/2 ML VIAL IVP PRN (02:15)
[2018-10-03] MEDS: *HR* Promethazine 25 MG/ML VIAL IVP PRN ×2 (04:13→19:16)
[2018-10-03] MEDS: *HR* Heparin 5,000 UNIT/ML VIAL SQ SCH ×2 (05:04→17:10)
--- NOTE | 2018-10-03 08:19 | Internal Med Progress Note ---
Hospitalist Progress Note - Encounter Date of Encounter: 10/03/18 Time of Encounter: 08:00 - Subjective Interval History: No acute events overnight - Exam Vitals: Temp Pulse Resp BP Pulse Ox 98.8 F 61 16 147/58 93 10/03/18 07:19 10/03/18 07:19 10/03/18 07:19 10/03/18 07:19 10/03/18 07:19 Exam: General appearance: Present: A&O X 3, no acute distress Head exam: Present: normocephalic Respiratory exam: Present: CTAB. Absent: accessory muscle use, rales, rhonchi, wheezes Cardiovascular exam: Present: RRR, +S1, +S2. Absent: diastolic murmur, gallop, rubs, systolic murmur GI/Abdominal exam: Present: Epigastric tenderness to palpation on exam Extremities exam: Absent: pedal edema Neurological exam: Present: alert, oriented X3, no focal deficits. Absent: alt ered - Assessment and Plan (1) Acute alcoholic pancreatitis Current Visit: Yes Status: Acute Assessment and Plan: Patient with a long-standing history of alcohol dependence/abuse presents with epigastric pain. In the ER, patient was found to have a lipase of 696 and amylase of 168. ET of the abdomen/pelvis also revealed acute on chronic pancreatitis Continue pain control. Started on clear liquid diet (2) HTN (hypertension) Current Visit: No Status: Chronic Assessment and Plan: Continue home medications (3) Alcohol dependence Current Visit: Yes Status: Chronic Assessment and Plan: Will cover with CIWA protocol (4) Generalized weakness Current Visit: Yes Status: Acute Assessment and Plan: Patient reports of unsteady gait with frequent falls Suspect secondary to chronic alcohol abuse/dependence (5) DVT prophylaxis Current Visit: No Status: Acute Assessment and Plan: Subcutaneous heparin - Time Spent with Patient Total time spent is greater than 50% in coordination of care (as documented) at patient's floor/unit and/or counseling patient: Internal Medicine: Result - Labs CBC & Chem 7: 10/03/18 00:25 10/03/18 00:25 Labs: Short CBC 10/02/18 10/03/18 Range/Units 08:39 00:25 WBC 9.2 11.4 H (4.3-11.1) K/mcL Hgb 13.8 13.1 (12.9-16.9) g/dL Hct 40.8 38.5 (37.5-50.1) % Plt Count 176 150 (140-400) K/mcL Neutrophils # 6.7 9.0 H (1.6-8.9) K/mcL BMP 10/02/18 10/03/18 08:39 00:25 Sodium 137 134 L Potassium 3.8 3.1 L Chloride 96 L 98 Carbon Dioxide 29 27 BUN 12 7 L Creatinine 0.66 L 0.61 L Glucose 196 H 129 H Calcium 8.7 8.0 L Cardiac Enzymes 10/02/18 Range/Units 08:39 Troponin I < 0.03 (< 0.04) ng/mL Liver Function 10/02/18 Range/Units 08:39 Total Bilirubin 0.5 (0.3-1.0) mg/dL Direct Bilirubin 0.1 (0.0-0.2) mg/dL AST 66 H (13-39) Units/L ALT 34 (7-52) Units/L Alkaline Phosphatase 56 (34-104) Units/L Albumin 3.7 (3.5-5.7) g/dL Urine 10/02/18 Range/Units 10:22 Urine Color Yellow (Yellow) Urine Clarity Clear (Clear) Urine pH 6.5 (5.0-8.0) pH Units Ur Specific [place] 1.019 (1.010-1.025) Urine Protein Negative (Neg-Trace) mg/dL Urine Glucose (UA) 250 H (Normal) mg/dL - ABG Interpretation ABG results: PT/INR, D-dimer PT 11.1 Seconds (9.4-12.1) 10/02/18 08:39 - Impressions Impressions Abdomen/Pelvis CT 10/02/18 08:19 IMPRESSION: 1. Findings are consistent with acute on chronic pancreatitis, without evidence of a pancreatic mass, pseudocyst, or abscess. 2. Stable bilateral adrenal adenomas. 3. Diffuse hepatic steatosis. D/ / 10/02/2018 10:15:17 Franklin Lima MD / chyna Interpreting Provider: Franklin Lima MD Cervical Spine CT 10/02/18 08:19 IMPRESSION: No acute abnormality of the cervical spine. Moderate spondylosis of the lower cervical spine. Mild facet arthropathy. [id number]-ij-ombhzmly bony foraminal stenosis on the left at C5-C6. D/ / Gómez Boateng MD / Gómez Boateng MD Interpreting Provider: Gómez Boateng MD Chest X-Ray 10/02/18 08:19 IMPRESSION: Left basilar atelectasis, otherwise no acute cardiopulmonary process. D/ / 10/02/2018 08:44:27 Nathanael Medellin MD / darling Interpreting Provider: Nathanael Medellin MD Head CT 10/02/18 08:19 IMPRESSION: No acute intracranial abnormality. Acute left sphenoid sinusitis. Mild cerebral atrophy appropriate for age. 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 D/ / Gómez Boateng MD / Gómez Boateng MD Interpreting Provider: Gómez Boateng MD Consult Discharge Plan - Plan Referrals: Amie Zhang MD [Primary Care Provider] - (1) Acute alcoholic pancreatitis Qualifiers: Acute pancreatitis complication: unspecified Qualified Code(s): K85.20 - Alcohol induced acute pancreatitis without necrosis or infection (2) HTN (hypertension) Qualifiers: Qualified Code(s): I10 - Essential (primary) hypertension (3) Alcohol dependence Qualifiers: Substance use status: unspecified alcohol-induced disorder Qualified Code(s): F10.29 - Alcohol dependence with unspecified alcohol-induced disorder
[2018-10-03] MEDS: Potassium Chloride Elixir 20 MEQ/15 ML UDC PO SCH ×2 (09:47→12:31)
[2018-10-03] MEDS: tiZANidine 4 MG TABLET PO SCH ×2 (09:48→19:16)
[2018-10-03] MEDS: Thiamine (B-1) 100 MG TABLET PO SCH (09:48)
[2018-10-03] MEDS: Cholecalciferol (D-3) 1,000 UNIT TABLET PO SCH (09:48)
[2018-10-03] MEDS: Ketorolac 30 MG/ML VIAL IVP PRN (12:33)
[2018-10-03] MEDS: Folic Acid 1 MG, MVI, adult with vitamin K 10 ML in 0.9 % Sodium Chloride 500 ML IVPB SCH (17:10)
[2018-10-04] MEDS: *HR* LORazepam 2 MG/ML VIAL IVP PRN ×4 (01:51→23:45)
[2018-10-04] MEDS: *HR* Promethazine 25 MG/ML VIAL IVP PRN (01:54)
[2018-10-04] MEDS: Ketorolac 30 MG/ML VIAL IVP PRN (01:54)
[2018-10-04] MEDS: MORPHINE SUL Oral CONC 10 MG/0.5 ML ORAL.SYG SL PRN ×2 (03:42→18:46)
[2018-10-04] MEDS: *HR* Heparin 5,000 UNIT/ML VIAL SQ SCH ×2 (06:25→18:43)
[2018-10-04] MEDS ORDERED: *HR* OxyCODONE Immed Rel 5 MG TABLET PO ONE (07:13)
[2018-10-04] MEDS ORDERED: diazePAM 2 MG TABLET PO ONE (07:14)
[2018-10-04] MEDS: Cholecalciferol (D-3) 1,000 UNIT TABLET PO SCH (08:14)
[2018-10-04] MEDS: tiZANidine 4 MG TABLET PO SCH ×2 (08:15→20:04)
[2018-10-04] MEDS: Thiamine (B-1) 100 MG TABLET PO SCH (08:15)
[2018-10-04 09:53] LABS: Basophils % 0.5 %; Eosinophils # 0.3 K/mcL (0.0-0.6); Eosinophils % 3.8 %; Hematocrit 38.4 % (37.5-50.1); Immature Granulocytes % 0.5 % (0-4); Lymphocytes # 2.5 K/mcL (0.6-4.6); Lymphocytes % 31.6 %; Mean Corpuscular HGB Conc 33.9 g/dL (31.6-35.5); Mean Corpuscular Hemoglobin 32.6 pg (28.0-33.3); Mean Corpuscular Volume 96.2 fL (83.0-100.0); Mean Platelet Volume 10.9 fL (9.4-12.4); Monocytes # 0.6 K/mcL (0.0-1.3); Neutrophils # 4.5 K/mcL (1.6-8.9); Platelet Count 134 K/mcL (140-400); Red Blood Count 3.99 M/mcL (4.19-5.50); Red Cell Distribution Width 13.7 % (11.5-14.5); Segmented Neutrophils % 56.6 %
[2018-10-04 09:59] LABS: BUN/Creatinine Ratio 11 (6-26); Blood Urea Nitrogen 8 mg/dL (8-23); Calcium 8.8 mg/dL (8.6-10.3); Carbon Dioxide 28 mEq/L (23-29); Chloride 98 mEq/L (98-107); Glucose 112 mg/dL (70-105); Osmolality,Calculated 283 (280-300); Sodium 137 mEq/L (136-145); eGFR For Non-African Americans > 60 (> 60)
--- NOTE | 2018-10-04 11:37 | Internal Med Progress Note ---
Hospitalist Progress Note - Encounter Date of Encounter: 10/04/18 Time of Encounter: 14:00 - Subjective Interval History: No acute events overnight - Exam Vitals: Temp Pulse Resp BP Pulse Ox 98.9 F 83 16 98/62 96 10/04/18 06:33 10/04/18 11:08 10/04/18 11:08 10/04/18 11:08 10/04/18 11:08 Exam: General appearance: Present: A&O X 3, no acute distress Head exam: Present: normocephalic Respiratory exam: Present: CTAB. Absent: accessory muscle use, rales, rhonchi, wheezes Cardiovascular exam: Present: RRR, +S1, +S2. Absent: diastolic murmur, gallop, rubs, systolic murmur GI/Abdominal exam: Present: Epigastric tenderness to palpation on exam Extremities exam: Absent: pedal edema Neurological exam: Present: alert, oriented X3, no focal deficits. Absent: alte red - Assessment and Plan (1) Acute alcoholic pancreatitis Current Visit: Yes Status: Acute Assessment and Plan: Patient with a long-standing history of alcohol dependence/abuse presents with epigastric pain. In the ER, patient was found to have a lipase of 696 and amylase of 168. ET of the abdomen/pelvis also revealed acute on chronic pancreatitis Continue pain control. Started on clear liquid diet Diet advanced to full liquid today and will monitor (2) HTN (hypertension) Current Visit: Yes Status: Chronic Assessment and Plan: Continue home medications (3) Alcohol dependence Current Visit: Yes Status: Acute Assessment and Plan: Will cover with CIWA protocol. Pt has acute alcohol withdrawal and has been receiving ativan prn (4) Generalized weakness Current Visit: Yes Status: Acute Assessment and Plan: Patient reports of unsteady gait with frequent falls Suspect secondary to chronic alcohol abuse/dependence (5) DVT prophylaxis Current Visit: Yes Status: Acute Assessment and Plan: Subcutaneous heparin - Time Spent with Patient Total time spent is greater than 50% in coordination of care (as documented) at patient's floor/unit and/or counseling patient: Internal Medicine: Result - Labs CBC & Chem 7: 10/04/18 09:08 10/04/18 09:08 Labs: Short CBC 10/04/18 Range/Units 09:08 WBC 7.9 (4.3-11.1) K/mcL Hgb 13.0 (12.9-16.9) g/dL Hct 38.4 (37.5-50.1) % Plt Count 134 L (140-400) K/mcL Neutrophils # 4.5 (1.6-8.9) K/mcL BMP 10/04/18 09:08 Sodium 137 Potassium 3.0 L Chloride 98 Carbon Dioxide 28 BUN 8 Creatinine 0.73 Glucose 112 H Calcium 8.8 - ABG Interpretation ABG results: PT/INR, D-dimer PT 11.1 Seconds (9.4-12.1) 10/02/18 08:39 Consult Discharge Plan - Plan Referrals: Amie Zhang MD [Primary Care Provider] - (1) Acute alcoholic pancreatitis Qualifiers: Acute pancreatitis complication: unspecified Qualified Code(s): K85.20 - Alcohol induced acute pancreatitis without necrosis or infection (2) HTN (hypertension) Qualifiers: Qualified Code(s): I10 - Essential (primary) hypertension (3) Alcohol dependence Qualifiers: Substance use status: unspecified alcohol-induced disorder Qualified Code(s): F10.29 - Alcohol dependence with unspecified alcohol-induced disorder
[2018-10-04] MEDS: Gabapentin 100 MG CAPSULE PO SCH ×3 (12:51→20:03)
[2018-10-04] MEDS: Folic Acid 1 MG, MVI, adult with vitamin K 10 ML in 0.9 % Sodium Chloride 500 ML IVPB SCH (18:42)
[2018-10-05] MEDS: *HR* LORazepam 2 MG/ML VIAL IVP PRN ×2 (00:51→08:38)
[2018-10-05] MEDS ORDERED: diazePAM 10 MG/2 ML SYRINGE IVP ONE (01:35)
--- NOTE | 2018-10-05 01:45 | Event Note ---
Date of Encounter: 10/05/18 Time of Encounter: 01:31 Alerted by patient's nurse that patient had been admitted for weakness and pancreatitis. CIWA assessment ordered for every 4 hours. Ativan administered per protocol with patient not responding well to it. Patient currently pacing the room naked. Following CIWA protocol, Valium 2.5 mg IVP once ordered to assess how pt. responds. Pt. currently not able to take PO in current state. Pt. much calmer and no longer pacing the room post-administration. Nurse instructed to continue monitoring pt. closely and alert me immediately of any adverse changes or further agitation.
[2018-10-05 02:10] LABS: Basophils % 0.6 %; Eosinophils # 0.4 K/mcL (0.0-0.6); Eosinophils % 5.4 %; Hematocrit 37.5 % (37.5-50.1); Hemoglobin 12.3 g/dL (12.9-16.9); Immature Granulocytes % 0.5 % (0-4); Lymphocytes # 1.7 K/mcL (0.6-4.6); Lymphocytes % 25.7 %; Mean Corpuscular HGB Conc 32.8 g/dL (31.6-35.5); Mean Corpuscular Hemoglobin 31.9 pg (28.0-33.3); Mean Corpuscular Volume 97.4 fL (83.0-100.0); Mean Platelet Volume 10.9 fL (9.4-12.4); Monocytes # 0.5 K/mcL (0.0-1.3); Monocytes % 7.9 %; Neutrophils # 3.9 K/mcL (1.6-8.9); Platelet Count 136 K/mcL (140-400); Red Blood Count 3.85 M/mcL (4.19-5.50); Red Cell Distribution Width 13.8 % (11.5-14.5); Segmented Neutrophils % 59.9 %
[2018-10-05 02:34] LABS: BUN/Creatinine Ratio 11 (6-26); Blood Urea Nitrogen 7 mg/dL (8-23); Calcium 8.7 mg/dL (8.6-10.3); Carbon Dioxide 29 mEq/L (23-29); Chloride 98 mEq/L (98-107); Glucose 86 mg/dL (70-105); Magnesium 1.7 mg/dL (1.6-2.6); Osmolality,Calculated 277 (280-300); Phosphorous 2.1 mg/dL (2.7-4.5); Potassium 3.1 mEq/L (3.5-5.1); Sodium 135 mEq/L (136-145); eGFR For Non-African Americans > 60 (> 60)
[2018-10-05] MEDS: MORPHINE SUL Oral CONC 10 MG/0.5 ML ORAL.SYG SL PRN (04:28)
[2018-10-05] MEDS: *HR* Heparin 5,000 UNIT/ML VIAL SQ SCH (06:13)
[2018-10-05 07:48] VITALS: BP 178/89
[2018-10-05] MEDS ORDERED: Potassium Phosphate 44 MEQ in 0.9 % Sodium Chloride 250 ML IVPB ONE (07:55)
[2018-10-05] MEDS ORDERED: Potassium Chloride Elixir 20 MEQ/15 ML UDC PO SCH (08:00)
[2018-10-05] MEDS: Gabapentin 100 MG CAPSULE PO SCH (08:38)
[2018-10-05] MEDS: tiZANidine 4 MG TABLET PO SCH (08:38)
[2018-10-05] MEDS: Thiamine (B-1) 100 MG TABLET PO SCH (08:38)
[2018-10-05] MEDS: Cholecalciferol (D-3) 1,000 UNIT TABLET PO SCH (08:38)
[2018-10-05] MEDS ORDERED: *HR* LORazepam 1 MG TABLET PO ONE (08:52)
[2018-10-05] MEDS ORDERED: Potassium Chloride Elixir 20 MEQ/15 ML UDC PO ONE (08:54)
[2018-10-05] MEDS ORDERED: amLODIPine 5 MG TABLET PO SCH (09:00)
--- NOTE | 2018-10-05 09:42 | Discharge Summary ---
Date of Encounter: 10/05/18 Time of Encounter: 08:00 - Discharge Diagnosis (1) Acute alcoholic pancreatitis Priority: Primary Status: Acute Assessment and Plan: 63-year-old male with past medical history significant for pancreatitis, alcohol dependence/abuse and hypertension who presents to the ER due to unsteady gait with falls and abdominal pain. Patient reports of having acute onset of abdominal pain for the last week does get worse with no radiation or provoking/relieving factors. Patient denies any associated symptoms of nausea/vomiting. In addition patient also reports of unsteady gait with falls. In the ER, patient was found to have a lipase of [address] of [address] of the abdomen/pelvis also revealed acute on chronic pancreatitis. He was assessed with epigastric pain secondary to acute alcoholic pancreatitis. He improved with IV fluids and pain control. Diet was gradually advanced as tolerated. He also had alcohol withdrawal which improved with benzodiazepines intermittently. He was discharged in a stable condition and 35 minutes was spent discharging this patient Qualifiers: Acute pancreatitis complication: unspecified Qualified Code(s): K85.20 - Alcohol induced acute pancreatitis without necrosis or infection (2) HTN (hypertension) Priority: Primary Status: Chronic Qualifiers: Qualified Code(s): I10 - Essential (primary) hypertension (3) Alcohol dependence Priority: Primary Status: Acute Qualifiers: Substance use status: unspecified alcohol-induced disorder Qualified Code(s): F10.29 - Alcohol dependence with unspecified alcohol-induced disorder (4) Generalized weakness Priority: Primary Status: Acute (5) DVT prophylaxis Priority: Primary Status: Acute Hospital course: Mr. Sandoval is a 63 year old male - Time Spent with Patient Total time spent providing and/or coordinating discharge services: - Discharge Medications Prescriptions: New Gabapentin [Neurontin] 100 mg PO TID #60 capsule Continue Cholecalciferol (Vitamin D3) [Vitamin D3] 5,000 unit PO DAILY Thiamine (B-1) [Vitamin B-1] 100 mg PO DAILY #5 tablet Bisoprolol/HCTZ 5/6.25 [Ziac 5/6.25] 1 tab PO DAILY Cyanocobalamin (B-12) [Vitamin B12] 500 mcg PO DAILY Trazodone HCl 100 - 200 mg PO HS Home Medications: Cholecalciferol (Vitamin D3) [Vitamin D3] 5,000 unit PO DAILY 07/24/16 [History] Thiamine (B-1) [Vitamin B-1] 100 mg PO DAILY #5 tablet 07/27/16 [Rx] Bisoprolol/HCTZ 5/6.25 [Ziac 5/6.25] 1 tab PO DAILY 10/03/18 [History] Cyanocobalamin (B-12) [Vitamin B12] 500 mcg PO DAILY 10/03/18 [History] Trazodone HCl 100 - 200 mg PO HS 10/03/18 [History] Gabapentin [Neurontin] 100 mg PO TID #60 capsule 10/05/18 [Rx] Allergies/Adverse Reactions: Allergy/AdvReac Type Severity Reaction Status Date / Time ampicillin Allergy Gastrointestinal Verified 10/02/18 08:13 Upset Date of admission: 10/02/18 14:16 Primary care physician: Amie Zhang MD Consults: 10/04/18 11:30 Consult to Physical Therapy [CONS] Routine Comment: Evaluate, develop and implement POC Reason for Consult: weakness Does patient have active BEDREST order?: No Is patient medically & hemodynamically stable?: Yes Patient assessed for mobility or mobilized this visit?: No 10/04/18 12:06 Consult to Occupational Therapy [CONS] Routine Comment: Evaluate, develop and implement POC Reason for Consult: weakness Does patient have active BEDREST order?: No Is patient medically & hemodynamically stable?: Yes Patient assessed for mobility or mobilized this visit?: No - Constitutional Vitals: Temp Pulse Resp BP Pulse Ox 98.9 F 94 18 178/89 94 10/05/18 07:47 10/05/18 07:47 10/05/18 07:47 10/05/18 07:47 10/05/18 07:47 Exam: General appearance: Present: A&O X 3, no acute distress Head exam: Present: normocephalic Respiratory exam: Present: CTAB. Absent: accessory muscle use, rales, rhonchi, wheezes Cardiovascular exam: Present: RRR, +S1, +S2. Absent: diastolic murmur, gallop, rubs, systolic murmur GI/Abdominal exam: Present: Epigastric tenderness to palpation on exam Extremities exam: Absent: pedal edema Neurological exam: Present: alert, oriented X3, no focal deficits. Absent: altered - Patient Status Disposition: Home, Self-Care Condition: Fair - Discharge Instructions Instructions: Abuse of Alcohol (GEN) Follow Up With: Amie Zhang MD [Primary Care Provider] -
== END 2018-10-05 12:12 | disposition home or self-care (01) | DRG 282 ==
LOC: 3ANU 08:05 → EMEROOARM 08:05 → 3ANU 12:42
PROVIDERS: ADMIT Hospitalist; ATTEND Hospitalist

== ENCOUNTER 2020-03-02 20:39 | Inpatient (IN) ==
[2020-03-02] MEDS ORDERED: 0.9 % Sodium Chloride 1,000 ML IVC ONE (21:08)
[2020-03-02 21:22] LABS: Basophils % 0.2 %; Eosinophils # 0.1 K/mcL (0.0-0.6); Eosinophils % 0.5 %; Hematocrit 41.4 % (37.5-50.1); Hemoglobin 13.5 g/dL (12.9-16.9); Immature Granulocytes % 0.3 % (0-4); Lymphocytes % 56.7 %; Mean Corpuscular HGB Conc 32.6 g/dL (31.6-35.5); Mean Corpuscular Hemoglobin 29.9 pg (28.0-33.3); Mean Corpuscular Volume 91.8 fL (83.0-100.0); Mean Platelet Volume 11.1 fL (9.4-12.4); Monocytes % 7.8 %; Neutrophils # 4.3 K/mcL (1.6-8.9); Platelet Count 141 K/mcL (140-400); Red Blood Count 4.51 M/mcL (4.19-5.50); Red Cell Distribution Width 15.1 % (11.5-14.5); Segmented Neutrophils % 34.5 %; White Blood Count 12.4 K/mcL (4.3-11.1)
[2020-03-02 21:32] LABS: ABG Base Excess -12 mEq/L (-2 to 3); ABG HCO3 13 mEq/L (21-27); ABG Oxygen Saturation 92 % (95-98); ABG PCO2 29 mmHg (35-45); ABG PH 7.27 pH Units (7.32-7.45); ABG PO2 71 mmHg (85-104); ABG TCO2 14 mEq/L (20-26)
[2020-03-02 21:50] LABS: Reactive Lymphocytes Present (Not Present)
[2020-03-02 21:51] LABS: Platelet Estimate Normal (Normal)
[2020-03-02 21:52] LABS: Acetaminophen < 10 mcg/mL (10-20); Alanine Aminotransferase 34 Units/L (7-52); Albumin 4.5 g/dL (3.5-5.7); Albumin/Globulin Ratio 1.3 (1.1-2.2); Alkaline Phosphatase 106 Units/L (34-104); Aspartate Amino Transferase 50 Units/L (13-39); BUN/Creatinine Ratio 9 (6-26); Bilirubin,Total 0.9 mg/dL (0.3-1.0); Blood Urea Nitrogen 9 mg/dL (8-23); Calcium 8.9 mg/dL (8.6-10.3); Carbon Dioxide 8 mEq/L (23-29); Chloride 78 mEq/L (98-107); Ethanol 123 mg/dL (Less than 10); Globulin 3.5 g/dL (2.4-3.5); Glucose 233 mg/dL (70-105); Osmolality,Calculated 262 (280-300); Potassium 2.5 mEq/L (3.5-5.1); Salicylate < 2.5 mg/dL (15.0-30.0); Sodium 123 mEq/L (136-145); eGFR For African Americans > 60 (> 60); eGFR For Non-African Americans > 60 (> 60)
[2020-03-02] MEDS ORDERED: levETIRAcetam 1,000 MG in 0.9 % Sodium Chloride 100 ML IVPB ONE (21:52)
[2020-03-02] MEDS ORDERED: Potassium Chloride 40 MEQ, Lidocaine 1% 2 ML in 0.9 % Sodium Chloride 500 ML IVPB ONE (22:29)
[2020-03-02] MEDS ORDERED: *HR* LORazepam 2 MG/ML VIAL ONE (23:16)
[2020-03-02] MEDS ORDERED: *HR* LORazepam 2 MG/ML VIAL IVP ONE (23:24)
[2020-03-03 00:14] LABS: Bilirubin,Urine Negative (Negative); Blood,Urine Negative (Negative); Clarity,Urine Clear (Clear); Color,Urine Colorless (Yellow); Glucose,Urine (UA) Normal (Normal); Ketones,Urine Negative (Negative); Leukocyte Esterase,Urine Negative (Negative); Nitrite,Urine Negative (Negative); PH,Urine 6.5 pH Units (5.0-8.0); Protein,Urine Negative (Neg-Trace); Specific Gravity,Urine 1.008 (1.010-1.025); Urobilinogen,Urine Normal (Normal)
[2020-03-03 00:37] LABS: BUN/Creatinine Ratio 9 (6-26); Blood Urea Nitrogen 8 mg/dL (8-23); Calcium 8.5 mg/dL (8.6-10.3); Carbon Dioxide 18 mEq/L (23-29); Chloride 86 mEq/L (98-107); Glucose 127 mg/dL (70-105); Osmolality,Calculated 260 (280-300); Potassium 2.5 mEq/L (3.5-5.1); Sodium 125 mEq/L (136-145); eGFR For African Americans > 60 (> 60); eGFR For Non-African Americans > 60 (> 60)
[2020-03-03 00:38] LABS: Amphetamine Screen,Urine Positive ng/mL (Cutoff=1000); Barbiturate Screen,Urine Negative ng/mL (Cutoff=200); Benzodiazepines Screen,Urine Positive ng/mL (Cutoff=200); Cannabinoid Screen,Urine Positive ng/mL (Cutoff = 50); Cocaine Screen,Urine Positive ng/mL (Cutoff= 300); Opiate Screen,Urine Negative ng/mL (Cutoff=300); Phencyclidine Screen,Urine Negative ng/mL (Cutoff=25)
[2020-03-03 01:01] LABS: Prolactin 7.38 ng/mL (3.00-14.70)
[2020-03-03] MEDS ORDERED: Thiamine (B-1) 100 MG in 0.9 % Sodium Chloride 50 ML IVPB STA (01:18)
[2020-03-03] MEDS ORDERED: *HR* LORazepam 2 MG/ML VIAL IVP ONE (01:42)
[2020-03-03] MEDS ORDERED: Naloxone 0.4 MG/ML INJ IVP PRN (01:58)
[2020-03-03] MEDS ORDERED: Acetaminophen 325 MG TABLET PO PRN (01:58)
[2020-03-03] MEDS ORDERED: *HR* Promethazine 25 MG/ML VIAL IVP PRN (01:58)
[2020-03-03] MEDS ORDERED: *HR* LORazepam 2 MG/ML VIAL IVP PRN ×2 (02:02→09:59)
[2020-03-03] MEDS: 0.9 % Sodium Chloride 1,000 ML IVC SCH ×2 (02:32→17:10)
[2020-03-03] MEDS: *HR* LORazepam 2 MG/ML VIAL IVP PRN ×5 (02:41→21:31)
[2020-03-03] MEDS ORDERED: Dextrose Gel 15 GM/37.5 ML TUBE PO PRN ×2 (02:43)
[2020-03-03] MEDS ORDERED: D5% in Water 1,000 ML IVC PRN (02:43)
[2020-03-03] MEDS ORDERED: *HR* Dextrose 50 % in Water (Vial) 50 ML VIAL IVP PRN (02:43)
[2020-03-03 04:54] LABS: Basophils % 0.2 %; Eosinophils % 0.1 %; Hematocrit 35.9 % (37.5-50.1); Hemoglobin 12.6 g/dL (12.9-16.9); Immature Granulocytes % 0.4 % (0-4); Immature Platelets 11.2 % (1.1-6.1); Lymphocytes # 2.6 K/mcL (0.6-4.6); Lymphocytes % 20.4 %; Mean Corpuscular HGB Conc 35.1 g/dL (31.6-35.5); Mean Corpuscular Hemoglobin 30.3 pg (28.0-33.3); Mean Corpuscular Volume 86.3 fL (83.0-100.0); Monocytes # 0.9 K/mcL (0.0-1.3); Monocytes % 7.5 %; Platelet Count 113 K/mcL (140-400); Red Blood Count 4.16 M/mcL (4.19-5.50); Red Cell Distribution Width 14.6 % (11.5-14.5); Segmented Neutrophils % 71.4 %; White Blood Count 12.5 K/mcL (4.3-11.1)
[2020-03-03 05:11] LABS: BUN/Creatinine Ratio 12 (6-26); Blood Urea Nitrogen 9 mg/dL (8-23); Calcium 8.2 mg/dL (8.6-10.3); Carbon Dioxide 25 mEq/L (23-29); Chloride 91 mEq/L (98-107); Creatine Kinase 186 Units/L (30-223); Glucose 96 mg/dL (70-105); Magnesium 1.9 mg/dL (1.6-2.6); Osmolality,Calculated 263 (280-300); Phosphorous 2.5 mg/dL (2.7-4.5); Potassium 2.8 mEq/L (3.5-5.1); Sodium 127 mEq/L (136-145); eGFR For African Americans > 60 (> 60); eGFR For Non-African Americans > 60 (> 60)
[2020-03-03 05:13] LABS: Uric Acid 8.4 mg/dL (2.3-7.6)
[2020-03-03 05:26] LABS: Thyroid Stimulating Hormone 0.966 mcIU/mL (0.340-5.600)
[2020-03-03 06:46] LABS: ABG Base Excess 6 mEq/L (-2 to 3); ABG HCO3 27 mEq/L (21-27); ABG Oxygen Saturation 95 % (95-98); ABG PCO2 30 mmHg (35-45); ABG PH 7.56 pH Units (7.32-7.45); ABG PO2 66 mmHg (85-104); ABG TCO2 28 mEq/L (20-26)
[2020-03-03] MEDS ORDERED: Potassium Chloride 40 MEQ, Lidocaine 1% 2 ML in 0.9 % Sodium Chloride 500 ML IVPB ONE (07:00)
[2020-03-03] MEDS: Insulin LISPRO 300 UNITS/3 ML VIAL SQ SCH ×3 (08:00→17:10)
[2020-03-03] MEDS: Vitamin B Complex/Vit C/Vit E 1 EACH TABLET PO SCH (08:02)
[2020-03-03] MEDS: Potassium Chloride Elixir 20 MEQ/15 ML UDC PO SCH ×2 (08:03→20:38)
[2020-03-03 09:48] LABS: Estimated Average Glucose 114 mg/dl
[2020-03-03 10:02] LABS: BUN/Creatinine Ratio 12 (6-26); Blood Urea Nitrogen 9 mg/dL (8-23); Calcium 8.2 mg/dL (8.6-10.3); Carbon Dioxide 23 mEq/L (23-29); Chloride 95 mEq/L (98-107); Glucose 148 mg/dL (70-105); Osmolality,Calculated 265 (280-300); Potassium 3.5 mEq/L (3.5-5.1); Sodium 127 mEq/L (136-145); eGFR For African Americans > 60 (> 60); eGFR For Non-African Americans > 60 (> 60)
[2020-03-03 14:45] LABS: BUN/Creatinine Ratio 13 (6-26); Blood Urea Nitrogen 9 mg/dL (8-23); Calcium 8.1 mg/dL (8.6-10.3); Carbon Dioxide 23 mEq/L (23-29); Chloride 99 mEq/L (98-107); Glucose 123 mg/dL (70-105); Osmolality,Calculated 268 (280-300); Sodium 129 mEq/L (136-145); eGFR For African Americans > 60 (> 60); eGFR For Non-African Americans > 60 (> 60)
[2020-03-03 19:27] LABS: Folate 16.7 ng/mL (3.0-16.0)
[2020-03-03] MEDS: Lactulose Oral Soln 20 GM/30 ML UDC PO SCH (20:36)
[2020-03-03] MEDS ORDERED: Insulin LISPRO 300 UNITS/3 ML VIAL SQ SCH (21:00)
[2020-03-04 05:58] LABS: Basophils % 0.3 %; Hemoglobin 11.8 g/dL (12.9-16.9); Mean Platelet Volume 11.7 fL (9.4-12.4)
[2020-03-04 06:00] LABS: Eosinophils % 0.5 %; Immature Granulocytes % 0.4 % (0-4); Immature Platelets 10.8 % (1.1-6.1); Lymphocytes # 2.6 K/mcL (0.6-4.6); Lymphocytes % 35.3 %; Mean Corpuscular HGB Conc 33.7 g/dL (31.6-35.5); Mean Corpuscular Hemoglobin 29.9 pg (28.0-33.3); Mean Corpuscular Volume 88.8 fL (83.0-100.0); Monocytes # 0.5 K/mcL (0.0-1.3); Monocytes % 7.1 %; Neutrophils # 4.2 K/mcL (1.6-8.9); Red Blood Count 3.94 M/mcL (4.19-5.50); Red Cell Distribution Width 14.9 % (11.5-14.5); Segmented Neutrophils % 56.4 %; White Blood Count 7.4 K/mcL (4.3-11.1)
[2020-03-04 06:14] LABS: BUN/Creatinine Ratio 14 (6-26); Blood Urea Nitrogen 10 mg/dL (8-23); Calcium 8.5 mg/dL (8.6-10.3); Carbon Dioxide 24 mEq/L (23-29); Chloride 100 mEq/L (98-107); Glucose 180 mg/dL (70-105); Osmolality,Calculated 278 (280-300); Potassium 2.9 mEq/L (3.5-5.1); Sodium 132 mEq/L (136-145); eGFR For African Americans > 60 (> 60); eGFR For Non-African Americans > 60 (> 60)
[2020-03-04 06:50] LABS: Platelet Count 90 K/mcL (140-400)
[2020-03-04] MEDS ORDERED: Potassium Chloride 40 MEQ, Lidocaine 1% 2 ML in 0.9 % Sodium Chloride 500 ML IVPB ONE (07:27)
[2020-03-04] MEDS: Lactulose Oral Soln 20 GM/30 ML UDC PO SCH (08:09)
[2020-03-04] MEDS: Potassium Chloride Elixir 20 MEQ/15 ML UDC PO SCH (08:09)
[2020-03-04] MEDS: Vitamin B Complex/Vit C/Vit E 1 EACH TABLET PO SCH (08:09)
[2020-03-04] MEDS: Insulin LISPRO 300 UNITS/3 ML VIAL SQ SCH ×2 (08:15→11:55)
[2020-03-04] MEDS ORDERED: Thiamine (B-1) 100 MG TABLET PO SCH (09:00)
[2020-03-04] MEDS ORDERED: Cyanocobalamin (B-12) 1,000 MCG TABLET PO SCH (09:00)
[2020-03-04] MEDS ORDERED: Cholecalciferol (D-3) 1,000 UNIT (25MCG) TABLET PO SCH (09:00)
[2020-03-04] MEDS ORDERED: Folic Acid 1 MG TABLET PO SCH (09:00)
[2020-03-04 11:13] VITALS: BP 155/92
[2020-03-04] MEDS ORDERED: 0.9 % Sodium Chloride 1,000 ML IVC SCH (13:00)
[2020-03-04] MEDS ORDERED: levETIRAcetam 250 MG TABLET PO SCH (18:00)
== END 2020-03-04 13:57 | disposition left against medical advice (07) | DRG 101 ==
LOC: 2NNU 20:39 → EMEROOARM 20:39 → SUATTDRO 03-03 00:39 → 2NNU 03-03 01:57
PROVIDERS: ADMIT Student in an Organized Health Care Education/Training Program; ATTEND Family Medicine

== ENCOUNTER 2020-03-08 12:55 | Observation (INO) ==
[2020-03-08] MEDS ORDERED: *HR* LORazepam 2 MG/ML VIAL ONE (13:03)
[2020-03-08] MEDS ORDERED: levETIRAcetam 1,000 MG in 0.9 % Sodium Chloride 100 ML IVPB ONE (13:05)
[2020-03-08 13:30] LABS: Bilirubin,Urine Negative (Negative); Blood,Urine Moderate (Negative); Clarity,Urine Clear (Clear); Color,Urine Yellow (Yellow); Glucose,Urine (UA) Normal (Normal); Ketones,Urine Negative (Negative); Leukocyte Esterase,Urine Negative (Negative); Nitrite,Urine Negative (Negative); PH,Urine 5.5 pH Units (5.0-8.0); Protein,Urine 100 mg/dL (Neg-Trace); Urobilinogen,Urine Normal (Normal)
[2020-03-08 13:35] LABS: Bacteria,Urine Few per hpf (None-Few); Hyaline Casts,Urine Few per lpf (None Seen); RBC,Urine 0-3 per hpf (0-3); Squamous Epithelial Cell,Urine Few per hpf (None-Few); WBC,Urine 0-3 per hpf (0-3)
[2020-03-08 13:53] LABS: Amphetamine Screen,Urine Positive ng/mL (Cutoff=1000); Barbiturate Screen,Urine Negative ng/mL (Cutoff=200); Benzodiazepines Screen,Urine Negative ng/mL (Cutoff=200); Cannabinoid Screen,Urine Negative ng/mL (Cutoff = 50); Cocaine Screen,Urine Positive ng/mL (Cutoff= 300); Opiate Screen,Urine Negative ng/mL (Cutoff=300); Phencyclidine Screen,Urine Negative ng/mL (Cutoff=25)
[2020-03-08 14:03] LABS: Alanine Aminotransferase 32 Units/L (7-52); Albumin 4.6 g/dL (3.5-5.7); Albumin/Globulin Ratio 1.4 (1.1-2.2); Alkaline Phosphatase 108 Units/L (34-104); Aspartate Amino Transferase 44 Units/L (13-39); BUN/Creatinine Ratio 5 (6-26); Bilirubin,Total 0.6 mg/dL (0.3-1.0); Blood Urea Nitrogen 6 mg/dL (8-23); Calcium 9.5 mg/dL (8.6-10.3); Carbon Dioxide 13 mEq/L (23-29); Chloride 97 mEq/L (98-107); Creatine Kinase 516 Units/L (30-223); Ethanol < 10 mg/dL (Less than 10); Globulin 3.3 g/dL (2.4-3.5); Glucose 189 mg/dL (70-105); Magnesium 1.8 mg/dL (1.6-2.6); Osmolality,Calculated 279 (280-300); Phosphorous 3.9 mg/dL (2.7-4.5); Potassium 3.5 mEq/L (3.5-5.1); Sodium 133 mEq/L (136-145); Total Protein 7.9 g/dL (6.4-8.9); eGFR For African Americans > 60 (> 60); eGFR For Non-African Americans > 60 (> 60)
[2020-03-08 14:23] LABS: Basophils % 0.3 %; Eosinophils # 0.4 K/mcL (0.0-0.6); Eosinophils % 2.6 %; Hematocrit 41.9 % (37.5-50.1); Hemoglobin 13.8 g/dL (12.9-16.9); Immature Granulocytes % 1.2 % (0-4); Lymphocytes # 0.6 K/mcL (0.6-4.6); Mean Corpuscular HGB Conc 32.9 g/dL (31.6-35.5); Mean Corpuscular Hemoglobin 30.9 pg (28.0-33.3); Mean Corpuscular Volume 93.7 fL (83.0-100.0); Mean Platelet Volume 10.3 fL (9.4-12.4); Monocytes # 1.4 K/mcL (0.0-1.3); Monocytes % 9.8 %; Neutrophils # 11.9 K/mcL (1.6-8.9); Platelet Count 240 K/mcL (140-400); Red Blood Count 4.47 M/mcL (4.19-5.50); Red Cell Distribution Width 15.9 % (11.5-14.5); Segmented Neutrophils % 82.1 %; White Blood Count 14.5 K/mcL (4.3-11.1)
[2020-03-08] MEDS ORDERED: Naloxone 0.4 MG/ML INJ IVP PRN (14:52)
[2020-03-08] MEDS ORDERED: 0.9 % Sodium Chloride 1,000 ML IVC ONE (14:52)
[2020-03-08] MEDS ORDERED: Ondansetron 4 MG/2 ML VIAL IVP PRN (14:52)
[2020-03-08] MEDS ORDERED: *HR* LORazepam 2 MG/ML VIAL IVP PRN ×3 (14:52)
[2020-03-08] MEDS ORDERED: *HR* Labetalol 20 MG/4 ML SYRINGE IVP PRN (15:34)
[2020-03-08] MEDS ORDERED: Thiamine (B-1) 100 MG, Folic Acid 1 MG in 0.9 % Sodium Chloride 50 ML IVPB SCH (16:00)
[2020-03-08] MEDS: 0.9 % Sodium Chloride 1,000 ML IVC SCH (18:40)
[2020-03-08] MEDS: levETIRAcetam 250 MG TABLET PO SCH (20:17)
[2020-03-09] MEDS: 0.9 % Sodium Chloride 1,000 ML IVC SCH (04:23)
[2020-03-09 07:11] LABS: Basophils % 0.3 %; Eosinophils % 0.1 %; Hematocrit 34.5 % (37.5-50.1); Immature Granulocytes % 0.8 % (0-4); Lymphocytes % 32.2 %; Mean Corpuscular HGB Conc 33.6 g/dL (31.6-35.5); Mean Corpuscular Hemoglobin 30.1 pg (28.0-33.3); Mean Corpuscular Volume 89.6 fL (83.0-100.0); Monocytes # 1.1 K/mcL (0.0-1.3); Neutrophils # 5.1 K/mcL (1.6-8.9); Platelet Count 198 K/mcL (140-400); Red Blood Count 3.85 M/mcL (4.19-5.50); Red Cell Distribution Width 15.9 % (11.5-14.5); Segmented Neutrophils % 54.6 %; White Blood Count 9.3 K/mcL (4.3-11.1)
[2020-03-09 07:13] LABS: Hemoglobin 11.6 g/dL (12.9-16.9)
[2020-03-09 07:21] LABS: Alanine Aminotransferase 26 Units/L (7-52); Albumin 3.5 g/dL (3.5-5.7); Albumin/Globulin Ratio 1.3 (1.1-2.2); Alkaline Phosphatase 80 Units/L (34-104); Aspartate Amino Transferase 42 Units/L (13-39); BUN/Creatinine Ratio 13 (6-26); Blood Urea Nitrogen 10 mg/dL (8-23); Calcium 8.5 mg/dL (8.6-10.3); Carbon Dioxide 22 mEq/L (23-29); Chloride 104 mEq/L (98-107); Globulin 2.8 g/dL (2.4-3.5); Glucose 132 mg/dL (70-105); Magnesium 1.7 mg/dL (1.6-2.6); Osmolality,Calculated 279 (280-300); Potassium 3.4 mEq/L (3.5-5.1); Sodium 134 mEq/L (136-145); Total Protein 6.3 g/dL (6.4-8.9); eGFR For African Americans > 60 (> 60); eGFR For Non-African Americans > 60 (> 60)
[2020-03-09 07:49] VITALS: BP 136/78
[2020-03-09] MEDS: levETIRAcetam 250 MG TABLET PO SCH (08:14)
[2020-03-09] MEDS ORDERED: Cholecalciferol (D-3) 1,000 UNIT (25MCG) TABLET PO SCH (09:00)
[2020-03-09] MEDS ORDERED: Cyanocobalamin (B-12) 1,000 MCG TABLET PO SCH (09:00)
== END 2020-03-09 13:22 | disposition home or self-care (01) ==
LOC: EMEROOARM 12:55 → 2ANU 12:55 → SUATTDRO 15:14 → 2ANU 15:30
PROVIDERS: ADMIT Student in an Organized Health Care Education/Training Program; ATTEND Internal Medicine

== ENCOUNTER 2020-03-11 13:30 | Inpatient (IN) ==
[2020-03-11] MEDS ORDERED: *HR* LORazepam 2 MG/ML VIAL ONE (13:33)
[2020-03-11] MEDS ORDERED: *HR* LORazepam 2 MG/ML VIAL IVP ONE (13:40)
[2020-03-11 14:04] LABS: Bilirubin,Urine Negative (Negative); Blood,Urine Small (Negative); Clarity,Urine Clear (Clear); Color,Urine Light-Yellow (Yellow); Glucose,Urine (UA) Normal (Normal); Ketones,Urine Negative (Negative); Leukocyte Esterase,Urine Negative (Negative); Nitrite,Urine Negative (Negative); Protein,Urine Negative (Neg-Trace); RBC,Urine 15-30 per hpf (0-3); Squamous Epithelial Cell,Urine Few per hpf (None-Few); Urobilinogen,Urine Normal (Normal)
[2020-03-11 14:05] LABS: Basophils % 0.2 %; Hematocrit 39.9 % (37.5-50.1); Hemoglobin 13.4 g/dL (12.9-16.9); Immature Granulocytes % 0.5 % (0-4); Lymphocytes # 1.5 K/mcL (0.6-4.6); Mean Corpuscular HGB Conc 33.6 g/dL (31.6-35.5); Mean Corpuscular Hemoglobin 30.6 pg (28.0-33.3); Mean Corpuscular Volume 91.1 fL (83.0-100.0); Mean Platelet Volume 10.1 fL (9.4-12.4); Monocytes # 0.8 K/mcL (0.0-1.3); Monocytes % 6.4 %; Neutrophils # 10.3 K/mcL (1.6-8.9); Platelet Count 264 K/mcL (140-400); Red Blood Count 4.38 M/mcL (4.19-5.50); Red Cell Distribution Width 15.6 % (11.5-14.5); Segmented Neutrophils % 80.9 %; White Blood Count 12.8 K/mcL (4.3-11.1)
[2020-03-11 14:35] LABS: Alanine Aminotransferase 34 Units/L (7-52); Albumin 4.2 g/dL (3.5-5.7); Albumin/Globulin Ratio 1.2 (1.1-2.2); Alkaline Phosphatase 98 Units/L (34-104); Aspartate Amino Transferase 45 Units/L (13-39); BUN/Creatinine Ratio 14 (6-26); Bilirubin,Total 1.7 mg/dL (0.3-1.0); Blood Urea Nitrogen 12 mg/dL (8-23); Calcium 9.9 mg/dL (8.6-10.3); Carbon Dioxide 25 mEq/L (23-29); Chloride 100 mEq/L (98-107); Globulin 3.4 g/dL (2.4-3.5); Glucose 110 mg/dL (70-105); Osmolality,Calculated 282 (280-300); Potassium 3.1 mEq/L (3.5-5.1); Sodium 136 mEq/L (136-145); Total Protein 7.6 g/dL (6.4-8.9); Troponin I 0.04 ng/mL (< 0.04); eGFR For African Americans > 60 (> 60); eGFR For Non-African Americans > 60 (> 60)
[2020-03-11] MEDS ORDERED: Gadolinium Contrast Agent (WT Based) IV PRN (15:26)
[2020-03-11] MEDS ORDERED: Ondansetron 4 MG/2 ML VIAL IVP PRN (15:48)
[2020-03-11] MEDS ORDERED: Naloxone 0.4 MG/ML INJ IVP PRN (15:48)
[2020-03-11] MEDS ORDERED: *HR* LORazepam 2 MG/ML VIAL IVP PRN (15:58)
[2020-03-11] MEDS: *HR* LORazepam 2 MG/ML VIAL IVP PRN ×3 (16:37→21:12)
[2020-03-11 17:39] LABS: Adenovirus Not Detected (Not Detect); Bordetella Pertussis Not Detected (Not Detect); Chlamydophila pneumoniae Not Detected (Not Detect); Coronavirus 229E Not Detected (Not Detect); Coronavirus HKU1 Not Detected (Not Detect); Coronavirus NL63 Not Detected (Not Detect); Coronavirus OC43 Not Detected (Not Detect); Human Metapneumovirus Not Detected (Not Detect); Human Rhinovirus/Enterovirus Not Detected (Not Detect); Influenza A Subtype 2009 H1 Not Detected (Not Detect); Influenza B Not Detected (Not Detect); Mycoplasma pneumoniae Not Detected (Not Detect); Parainfluenza Virus 1 Not Detected (Not Detect); Parainfluenza Virus 2 Not Detected (Not Detect); Parainfluenza Virus 3 Not Detected (Not Detect); Parainfluenza Virus 4 Not Detected (Not Detect); Respiratory Syncytial Virus Not Detected (Not Detect); SARS-CoV-2 Not Detected (Not Detect)
[2020-03-11] MEDS: Ringers Solution, Lactated 1,000 ML IVC SCH (19:32)
[2020-03-11] MEDS: Acyclovir 500 MG in D5% in Water 100 ML IVPB SCH (19:35)
[2020-03-11] MEDS: *HR* Heparin 5,000 UNIT/ML VIAL SQ SCH (19:45)
[2020-03-11] MEDS: Cefepime HCl 2,000 MG in Water for inj. (sterile) 20 ML IVP SCH (19:45)
[2020-03-11] MEDS: Levalbuterol Neb 1.25 MG/3 ML IH SCH (21:57)
[2020-03-11] MEDS ORDERED: Acetaminophen IV 1,000 MG/100 ML BAG IVPB ONE (23:16)
[2020-03-12] MEDS: *HR* LORazepam 2 MG/ML VIAL IVP PRN ×4 (00:04→08:10)
[2020-03-12] MEDS: Acyclovir 500 MG in D5% in Water 100 ML IVPB SCH ×3 (00:06→17:21)
[2020-03-12 01:53] LABS: Basophils # 0.1 K/mcL (0.0-0.2); Basophils % 0.6 %; Eosinophils % 0.1 %; Hematocrit 40.2 % (37.5-50.1); Hemoglobin 13.2 g/dL (12.9-16.9); Immature Granulocytes % 0.5 % (0-4); Lymphocytes # 2.8 K/mcL (0.6-4.6); Lymphocytes % 23.9 %; Mean Corpuscular HGB Conc 32.8 g/dL (31.6-35.5); Mean Corpuscular Hemoglobin 31.1 pg (28.0-33.3); Mean Corpuscular Volume 94.6 fL (83.0-100.0); Mean Platelet Volume 11.3 fL (9.4-12.4); Monocytes # 0.9 K/mcL (0.0-1.3); Monocytes % 7.8 %; Neutrophils # 7.9 K/mcL (1.6-8.9); Platelet Count 256 K/mcL (140-400); Red Blood Count 4.25 M/mcL (4.19-5.50); Red Cell Distribution Width 15.7 % (11.5-14.5); Segmented Neutrophils % 67.1 %; White Blood Count 11.8 K/mcL (4.3-11.1)
[2020-03-12 02:10] LABS: BUN/Creatinine Ratio 21 (6-26); Blood Urea Nitrogen 21 mg/dL (8-23); Calcium 9.7 mg/dL (8.6-10.3); Carbon Dioxide 18 mEq/L (23-29); Chloride 103 mEq/L (98-107); Glucose 136 mg/dL (70-105); Magnesium 1.6 mg/dL (1.6-2.6); Osmolality,Calculated 289 (280-300); Phosphorous 3.8 mg/dL (2.7-4.5); Potassium 3.2 mEq/L (3.5-5.1); Sodium 137 mEq/L (136-145); eGFR For African Americans > 60 (> 60); eGFR For Non-African Americans > 60 (> 60)
[2020-03-12] MEDS: Levalbuterol Neb 1.25 MG/3 ML IH SCH ×4 (03:48→21:45)
[2020-03-12] MEDS: Cefepime HCl 2,000 MG in Water for inj. (sterile) 20 ML IVP SCH ×2 (05:51→17:20)
[2020-03-12] MEDS: *HR* Heparin 5,000 UNIT/ML VIAL SQ SCH ×2 (05:52→17:21)
[2020-03-12 06:38] LABS: Amphetamine Screen,Urine Positive ng/mL (Cutoff=1000); Barbiturate Screen,Urine Negative ng/mL (Cutoff=200); Benzodiazepines Screen,Urine Positive ng/mL (Cutoff=300)
[2020-03-12 06:39] LABS: Cannabinoid Screen,Urine Positive ng/mL (Cutoff = 50); Cocaine Screen,Urine Positive ng/mL (Cutoff= 300); Opiate Screen,Urine Negative ng/mL (Cutoff=300); Phencyclidine Screen,Urine Negative ng/mL (Cutoff=25)
[2020-03-12] MEDS: Folic Acid 1 MG TABLET PO SCH (08:30)
[2020-03-12] MEDS: Vitamin B Complex/Vit C/Vit E 1 EACH TABLET PO SCH (08:32)
[2020-03-12] MEDS: Thiamine (B-1) 100 MG TABLET PO SCH (08:33)
[2020-03-12] MEDS ORDERED: PHENYTOIN IVPB ONE ×2 (09:24→09:45)
[2020-03-12] MEDS ORDERED: SODIUM CHLORIDE 0.9% IVPB ONE (09:45)
[2020-03-12] MEDS: levETIRAcetam 1,000 MG in 0.9 % Sodium Chloride 100 ML IVPB SCH ×2 (09:46→20:10)
[2020-03-12] MEDS ORDERED: Artificial Tears SOLN 15 ML BOTTLE BOTH EYES PRN (11:26)
[2020-03-12] MEDS: Ringers Solution, Lactated 1,000 ML IVC SCH (11:45)
[2020-03-12] MEDS: Dexmedetomidine HCl 400 MCG/100 ML MLS IVC SCH (11:55)
[2020-03-12 11:56] LABS: ABG Base Excess -3 mEq/L (-2 to 3); ABG HCO3 22 mEq/L (21-27); ABG Oxygen Saturation 100 % (95-98); ABG PCO2 35 mmHg (35-45); ABG PO2 170 mmHg (85-104); ABG TCO2 23 mEq/L (20-26); Blood Gas VT 500 cc
[2020-03-12] MEDS: Midazolam HCl 50 MG/100 ML IV.SOLN IVC SCH (11:57)
[2020-03-12] MEDS ORDERED: *HR* Midazolam HCl 2 MG/2 ML VIAL IVP ONE (14:14)
[2020-03-12] MEDS ORDERED: *HR* LORazepam 2 MG/ML VIAL IVP ONE (14:14)
[2020-03-12] MEDS ORDERED: *HR* Water for inj. (sterile) Vial IV ONE (14:14)
[2020-03-12] MEDS ORDERED: *HR* Etomidate 40 MG/20 ML VIAL IVP ONE (14:14)
[2020-03-12] MEDS ORDERED: *HR* Midazolam HCl 5 MG/5 ML VIAL IVP ONE (14:14)
[2020-03-12] MEDS: Pantoprazole 40 MG VIAL IVP SCH (14:18)
[2020-03-12] MEDS: Artificial Tears SOLN 15 ML BOTTLE BOTH EYES SCH ×4 (14:18→23:58)
[2020-03-12] MEDS: Budesonide/Formoterol 160/4.5 1 PUFF INH IH SCH ×2 (14:23→21:45)
[2020-03-12] MEDS ORDERED: Ringers Solution, Lactated 1,000 ML IVC ONE (14:52)
[2020-03-12] MEDS ORDERED: 0.9 % Sodium Chloride 500 ML ONE (14:54)
[2020-03-12 14:59] LABS: Red Blood Cell,CSF < 2000 RBC/mcL
[2020-03-12 15:01] LABS: Appearance,CSF Clear (Clear)
[2020-03-12 15:02] LABS: Basophils,CSF 0 %; Eosinophils,CSF 0 %; Lymphocytes,CSF 0 %; Monocytes,CSF 0 %; Other Cells,CSF 0 %
[2020-03-12 15:03] LABS: Glucose,CSF 90 mg/dL (40-70); Total Protein,CSF 83 mg/dL (15-45)
[2020-03-12] MEDS: Chlorhexidine Rinse 15 ML MOUTHWASH MM SCH (20:10)
[2020-03-13] MEDS: Acyclovir 500 MG in D5% in Water 100 ML IVPB SCH ×2 (00:20→08:32)
[2020-03-13] MEDS: Levalbuterol Neb 1.25 MG/3 ML IH SCH ×4 (04:06→22:21)
[2020-03-13] MEDS: Artificial Tears SOLN 15 ML BOTTLE BOTH EYES SCH ×5 (04:09→20:12)
[2020-03-13 05:28] LABS: ABG Base Excess 0 mEq/L (-2 to 3); ABG HCO3 24 mEq/L (21-27); ABG Oxygen Saturation 97 % (95-98); ABG PCO2 36 mmHg (35-45); ABG PH 7.42 pH Units (7.32-7.45); ABG PO2 89 mmHg (85-104); ABG TCO2 25 mEq/L (20-26); Blood Gas Modality ASSIST CONTROL; Blood Gas VT 500 cc
[2020-03-13] MEDS: *HR* Heparin 5,000 UNIT/ML VIAL SQ SCH ×2 (06:01→16:21)
[2020-03-13] MEDS: Cefepime HCl 2,000 MG in Water for inj. (sterile) 20 ML IVP SCH ×2 (06:02→16:21)
[2020-03-13] MEDS: Thiamine (B-1) 100 MG TABLET PO SCH (08:14)
[2020-03-13] MEDS: Midazolam HCl 50 MG/100 ML IV.SOLN IVC SCH (08:14)
[2020-03-13] MEDS: Vitamin B Complex/Vit C/Vit E 1 EACH TABLET PO SCH (08:14)
[2020-03-13] MEDS: Folic Acid 1 MG TABLET PO SCH (08:15)
[2020-03-13] MEDS: levETIRAcetam 1,000 MG in 0.9 % Sodium Chloride 100 ML IVPB SCH ×2 (08:17→20:55)
[2020-03-13] MEDS: Chlorhexidine Rinse 15 ML MOUTHWASH MM SCH ×2 (08:31→20:55)
[2020-03-13] MEDS: Budesonide/Formoterol 160/4.5 1 PUFF INH IH SCH ×2 (09:24→22:21)
[2020-03-13 10:38] LABS: Basophils % 0.3 %; Eosinophils # 0.1 K/mcL (0.0-0.6); Hematocrit 38.4 % (37.5-50.1); Hemoglobin 12.1 g/dL (12.9-16.9); Immature Granulocytes % 0.5 % (0-4); Lymphocytes # 2.3 K/mcL (0.6-4.6); Lymphocytes % 17.5 %; Mean Corpuscular HGB Conc 31.5 g/dL (31.6-35.5); Mean Corpuscular Hemoglobin 30.2 pg (28.0-33.3); Mean Corpuscular Volume 95.8 fL (83.0-100.0); Monocytes # 0.9 K/mcL (0.0-1.3); Neutrophils # 9.8 K/mcL (1.6-8.9); Platelet Count 237 K/mcL (140-400); Red Blood Count 4.01 M/mcL (4.19-5.50); Red Cell Distribution Width 16.1 % (11.5-14.5); Segmented Neutrophils % 73.7 %; White Blood Count 13.3 K/mcL (4.3-11.1)
[2020-03-13 10:40] LABS: VBG Ionized Calcium 1.19 mmol/L (1.15-1.35)
[2020-03-13] MEDS: Dexmedetomidine HCl 400 MCG/100 ML MLS IVC SCH ×2 (10:55→18:29)
[2020-03-13 10:57] LABS: Alanine Aminotransferase 27 Units/L (7-52); Albumin 3.6 g/dL (3.5-5.7); Albumin/Globulin Ratio 1.2 (1.1-2.2); Alkaline Phosphatase 70 Units/L (34-104); Aspartate Amino Transferase 35 Units/L (13-39); BUN/Creatinine Ratio 30 (6-26); Bilirubin,Total 0.9 mg/dL (0.3-1.0); Blood Urea Nitrogen 26 mg/dL (8-23); Calcium 9.1 mg/dL (8.6-10.3); Carbon Dioxide 25 mEq/L (23-29); Chloride 107 mEq/L (98-107); Globulin 3.1 g/dL (2.4-3.5); Glucose 140 mg/dL (70-105); Magnesium 1.9 mg/dL (1.6-2.6); Osmolality,Calculated 299 (280-300); Phosphorous 3.4 mg/dL (2.7-4.5); Potassium 3.1 mEq/L (3.5-5.1); Sodium 141 mEq/L (136-145); Total Protein 6.7 g/dL (6.4-8.9); eGFR For African Americans > 60 (> 60); eGFR For Non-African Americans > 60 (> 60)
[2020-03-13] MEDS ORDERED: Potassium Chloride 40 MEQ, Lidocaine 1% 2 ML in 0.9 % Sodium Chloride 500 ML IVPB ONE (11:09)
[2020-03-13] MEDS: Pantoprazole 40 MG VIAL IVP SCH ×2 (11:23)
[2020-03-13 12:06] LABS: Amylase 33 Units/L (29-103); Creatine Kinase 360 Units/L (30-223); Lipase 13 Units/L (11-82)
[2020-03-13] MEDS: Thiamine (B-1) 100 MG, Folic Acid 1 MG, MVI, adult with vitamin K 10 ML in 0.9 % Sodi... IVPB SCH (16:21)
[2020-03-13] MEDS: *HR* LORazepam 2 MG/ML VIAL IVP PRN (18:29)
[2020-03-14] MEDS: Pantoprazole 40 MG VIAL IVP SCH ×3 (00:03→22:21)
[2020-03-14] MEDS: Artificial Tears SOLN 15 ML BOTTLE BOTH EYES SCH ×5 (00:03→17:21)
[2020-03-14] MEDS: Levalbuterol Neb 1.25 MG/3 ML IH SCH ×4 (03:27→22:05)
[2020-03-14 04:27] LABS: ABG Base Excess 0 mEq/L (-2 to 3); ABG HCO3 25 mEq/L (21-27); ABG Oxygen Saturation 98 % (95-98); ABG PCO2 41 mmHg (35-45); ABG PH 7.39 pH Units (7.32-7.45); ABG PO2 106 mmHg (85-104); ABG TCO2 26 mEq/L (20-26); Blood Gas Modality ASSIST CONTROL; Blood Gas VT 550 cc
[2020-03-14] MEDS: *HR* Heparin 5,000 UNIT/ML VIAL SQ SCH ×2 (05:57→18:30)
[2020-03-14] MEDS: Cefepime HCl 2,000 MG in Water for inj. (sterile) 20 ML IVP SCH ×2 (05:58→18:29)
[2020-03-14] MEDS: levETIRAcetam 1,000 MG in 0.9 % Sodium Chloride 100 ML IVPB SCH ×2 (08:00→20:43)
[2020-03-14] MEDS: Chlorhexidine Rinse 15 ML MOUTHWASH MM SCH ×2 (08:01→20:20)
[2020-03-14 08:43] LABS: Basophils % 0.4 %; Eosinophils # 0.1 K/mcL (0.0-0.6); Eosinophils % 1.1 %; Hematocrit 39.6 % (37.5-50.1); Hemoglobin 12.3 g/dL (12.9-16.9); Immature Granulocytes % 0.5 % (0-4); Lymphocytes # 1.7 K/mcL (0.6-4.6); Lymphocytes % 17.7 %; Mean Corpuscular HGB Conc 31.1 g/dL (31.6-35.5); Mean Corpuscular Hemoglobin 31.1 pg (28.0-33.3); Mean Platelet Volume 10.9 fL (9.4-12.4); Monocytes # 1.4 K/mcL (0.0-1.3); Monocytes % 14.1 %; Neutrophils # 6.5 K/mcL (1.6-8.9); Platelet Count 170 K/mcL (140-400); Red Blood Count 3.96 M/mcL (4.19-5.50); Red Cell Distribution Width 16.1 % (11.5-14.5); Segmented Neutrophils % 66.2 %; White Blood Count 9.8 K/mcL (4.3-11.1)
[2020-03-14 09:03] LABS: BUN/Creatinine Ratio 32 (6-26); Blood Urea Nitrogen 23 mg/dL (8-23); Calcium 9.2 mg/dL (8.6-10.3); Carbon Dioxide 24 mEq/L (23-29); Chloride 113 mEq/L (98-107); Glucose 119 mg/dL (70-105); Osmolality,Calculated 299 (280-300); Potassium 3.3 mEq/L (3.5-5.1); Sodium 142 mEq/L (136-145); eGFR For African Americans > 60 (> 60); eGFR For Non-African Americans > 60 (> 60)
[2020-03-14] MEDS: Budesonide/Formoterol 160/4.5 1 PUFF INH IH SCH ×2 (10:10→22:05)
[2020-03-14] MEDS: Midazolam HCl 50 MG/100 ML IV.SOLN IVC SCH (12:13)
[2020-03-14] MEDS: Cyanocobalamin (B-12) 1,000 MCG TABLET PO SCH (14:21)
[2020-03-14] MEDS: Cholecalciferol (D-3) 1,000 UNIT (25MCG) TABLET PO SCH (14:21)
[2020-03-14] MEDS: Bisoprolol/HCTZ 5/6.25 TABLET PO SCH (14:23)
[2020-03-14] MEDS: Thiamine (B-1) 100 MG, Folic Acid 1 MG, MVI, adult with vitamin K 10 ML in 0.9 % Sodi... IVPB SCH (18:30)
[2020-03-14] MEDS: *HR* LORazepam 2 MG/ML VIAL IVP PRN (22:21)
[2020-03-14] MEDS ORDERED: Melatonin 3 MG TABLET PO PRN (23:33)
[2020-03-15] MEDS: *HR* LORazepam 2 MG/ML VIAL IVP PRN ×4 (00:12→13:43)
[2020-03-15] MEDS: Levalbuterol Neb 1.25 MG/3 ML IH SCH ×4 (03:41→21:02)
[2020-03-15 04:56] LABS: Basophils % 0.3 %; Eosinophils # 0.1 K/mcL (0.0-0.6); Eosinophils % 1.2 %; Hematocrit 34.1 % (37.5-50.1); Hemoglobin 10.9 g/dL (12.9-16.9); Immature Granulocytes % 0.5 % (0-4); Lymphocytes # 2.7 K/mcL (0.6-4.6); Lymphocytes % 30.8 %; Mean Corpuscular Hemoglobin 30.3 pg (28.0-33.3); Mean Corpuscular Volume 94.7 fL (83.0-100.0); Monocytes # 0.8 K/mcL (0.0-1.3); Monocytes % 9.2 %; Platelet Count 195 K/mcL (140-400); Red Cell Distribution Width 15.7 % (11.5-14.5); White Blood Count 8.6 K/mcL (4.3-11.1)
[2020-03-15 05:08] LABS: Alanine Aminotransferase 23 Units/L (7-52); Albumin 3.3 g/dL (3.5-5.7); Albumin/Globulin Ratio 1.2 (1.1-2.2); Alkaline Phosphatase 83 Units/L (34-104); Aspartate Amino Transferase 33 Units/L (13-39); BUN/Creatinine Ratio 20 (6-26); Bilirubin,Direct 0.2 mg/dL (0.0-0.2); Bilirubin,Indirect 0.5 mg/dL (0.0-1.0); Bilirubin,Total 0.7 mg/dL (0.3-1.0); Blood Urea Nitrogen 14 mg/dL (8-23); Calcium 8.8 mg/dL (8.6-10.3); Carbon Dioxide 24 mEq/L (23-29); Chloride 105 mEq/L (98-107); Globulin 2.7 g/dL (2.4-3.5); Glucose 125 mg/dL (70-105); Magnesium 1.6 mg/dL (1.6-2.6); Osmolality,Calculated 282 (280-300); Phosphorous 2.3 mg/dL (2.7-4.5); Potassium 2.7 mEq/L (3.5-5.1); Sodium 135 mEq/L (136-145); eGFR For African Americans > 60 (> 60); eGFR For Non-African Americans > 60 (> 60)
[2020-03-15 05:11] LABS: VBG Ionized Calcium 1.17 mmol/L (1.15-1.35)
[2020-03-15] MEDS: Cefepime HCl 2,000 MG in Water for inj. (sterile) 20 ML IVP SCH ×2 (06:17→17:50)
[2020-03-15] MEDS: *HR* Heparin 5,000 UNIT/ML VIAL SQ SCH ×2 (06:17→17:49)
[2020-03-15] MEDS: Chlorhexidine Rinse 15 ML MOUTHWASH MM SCH ×2 (07:44→20:02)
[2020-03-15] MEDS: Bisoprolol/HCTZ 5/6.25 TABLET PO SCH (08:17)
[2020-03-15] MEDS: Cholecalciferol (D-3) 1,000 UNIT (25MCG) TABLET PO SCH (08:17)
[2020-03-15] MEDS: Cyanocobalamin (B-12) 1,000 MCG TABLET PO SCH (08:17)
[2020-03-15] MEDS ORDERED: Potassium Chloride 40 MEQ, Lidocaine 1% 2 ML in 0.9 % Sodium Chloride 500 ML IVPB ONE (08:23)
[2020-03-15] MEDS: levETIRAcetam 1,000 MG in 0.9 % Sodium Chloride 100 ML IVPB SCH ×2 (08:33→20:02)
[2020-03-15] MEDS: Dexmedetomidine HCl 400 MCG/100 ML MLS IVC SCH (08:38)
[2020-03-15] MEDS: Midazolam HCl 50 MG/100 ML IV.SOLN IVC SCH (08:39)
[2020-03-15] MEDS: Budesonide/Formoterol 160/4.5 1 PUFF INH IH SCH ×2 (10:49→21:02)
[2020-03-15] MEDS: Pantoprazole 40 MG VIAL IVP SCH (12:18)
[2020-03-15] MEDS ORDERED: Gabapentin 100 MG CAPSULE PO SCH (15:00)
[2020-03-15] MEDS ORDERED: Fosphenytoin 1,000 MG.PE in 0.9 % Sodium Chloride 50 ML IVPB ONE (15:30)
[2020-03-15] MEDS: Thiamine (B-1) 100 MG, Folic Acid 1 MG, MVI, adult with vitamin K 10 ML in 0.9 % Sodi... IVPB SCH (17:49)
[2020-03-16] MEDS: Levalbuterol Neb 1.25 MG/3 ML IH SCH ×4 (03:03→22:07)
[2020-03-16] MEDS: Cefepime HCl 2,000 MG in Water for inj. (sterile) 20 ML IVP SCH ×2 (05:01→17:30)
[2020-03-16] MEDS: *HR* Heparin 5,000 UNIT/ML VIAL SQ SCH (05:01)
[2020-03-16 05:19] LABS: Basophils # 0.1 K/mcL (0.0-0.2); Basophils % 0.6 %; Eosinophils # 0.1 K/mcL (0.0-0.6); Eosinophils % 1.2 %; Hematocrit 34.3 % (37.5-50.1); Hemoglobin 11.2 g/dL (12.9-16.9); Immature Granulocytes % 0.5 % (0-4); Lymphocytes # 2.4 K/mcL (0.6-4.6); Mean Corpuscular HGB Conc 32.7 g/dL (31.6-35.5); Mean Corpuscular Hemoglobin 30.9 pg (28.0-33.3); Mean Corpuscular Volume 94.8 fL (83.0-100.0); Mean Platelet Volume 10.9 fL (9.4-12.4); Monocytes # 0.8 K/mcL (0.0-1.3); Monocytes % 10.1 %; Neutrophils # 4.7 K/mcL (1.6-8.9); Platelet Count 213 K/mcL (140-400); Red Blood Count 3.62 M/mcL (4.19-5.50); Red Cell Distribution Width 15.9 % (11.5-14.5); Segmented Neutrophils % 58.6 %; White Blood Count 8.1 K/mcL (4.3-11.1)
[2020-03-16 05:36] LABS: BUN/Creatinine Ratio 20 (6-26); Blood Urea Nitrogen 13 mg/dL (8-23); Calcium 8.5 mg/dL (8.6-10.3); Carbon Dioxide 23 mEq/L (23-29); Chloride 106 mEq/L (98-107); Glucose 116 mg/dL (70-105); Osmolality,Calculated 285 (280-300); Potassium 3.2 mEq/L (3.5-5.1); Sodium 137 mEq/L (136-145); eGFR For African Americans > 60 (> 60); eGFR For Non-African Americans > 60 (> 60)
[2020-03-16] MEDS ORDERED: Potassium Chloride Elixir 20 MEQ/15 ML UDC PO SCH (08:00)
[2020-03-16] MEDS: Dexmedetomidine HCl 400 MCG/100 ML MLS IVC SCH (08:39)
[2020-03-16] MEDS: Chlorhexidine Rinse 15 ML MOUTHWASH MM SCH (08:45)
[2020-03-16] MEDS: Cholecalciferol (D-3) 1,000 UNIT (25MCG) TABLET PO SCH (08:45)
[2020-03-16] MEDS: Bisoprolol/HCTZ 5/6.25 TABLET PO SCH (08:45)
[2020-03-16] MEDS: Cyanocobalamin (B-12) 1,000 MCG TABLET PO SCH (08:45)
[2020-03-16] MEDS: *HR* LORazepam 2 MG/ML VIAL IVP PRN ×3 (09:00→22:23)
[2020-03-16] MEDS ORDERED: Pantoprazole 40 MG VIAL IVP SCH (09:00)
[2020-03-16] MEDS: levETIRAcetam 1,000 MG in 0.9 % Sodium Chloride 100 ML IVPB SCH ×2 (09:17→19:45)
[2020-03-16] MEDS ORDERED: Ondansetron 4 MG/2 ML VIAL IVP PRN (09:28)
[2020-03-16] MEDS ORDERED: *HR* LORazepam 2 MG/ML VIAL IVP PRN ×3 (09:28)
[2020-03-16] MEDS ORDERED: Dexmedetomidine HCl 400 MCG/100 ML MLS IVC SCH (09:28)
[2020-03-16] MEDS ORDERED: Naloxone 0.4 MG/ML INJ IVP PRN (09:28)
[2020-03-16] MEDS: Budesonide/Formoterol 160/4.5 1 PUFF INH IH SCH ×2 (11:29→22:07)
[2020-03-16] MEDS ORDERED: Furosemide 40 MG in 0.9 % Sodium Chloride 50 ML IV ONE (12:02)
[2020-03-16] MEDS: Potassium Chloride Elixir 20 MEQ/15 ML UDC PO SCH (17:29)
[2020-03-16] MEDS: Thiamine (B-1) 100 MG, Folic Acid 1 MG, MVI, adult with vitamin K 10 ML in 0.9 % Sodi... IVPB SCH (17:44)
[2020-03-16] MEDS ORDERED: *HR* Heparin 5,000 UNIT/ML VIAL SQ SCH (18:00)
[2020-03-16] MEDS: Melatonin 3 MG TABLET PO PRN (22:22)
[2020-03-16] MEDS ORDERED: *HR* Heparin 5,000 UNIT/ML VIAL IVP ONE (23:42)
[2020-03-16] MEDS ORDERED: *HR* Heparin 5,000 UNIT/ML VIAL IVP PRN ×2 (23:42)
[2020-03-17 00:24] LABS: Hematocrit 34.9 % (37.5-50.1); Hemoglobin 11.1 g/dL (12.9-16.9); Mean Corpuscular HGB Conc 31.8 g/dL (31.6-35.5); Mean Corpuscular Hemoglobin 30.2 pg (28.0-33.3); Mean Corpuscular Volume 95.1 fL (83.0-100.0); Mean Platelet Volume 10.6 fL (9.4-12.4); Platelet Count 202 K/mcL (140-400); Red Blood Count 3.67 M/mcL (4.19-5.50); Red Cell Distribution Width 16.1 % (11.5-14.5); White Blood Count 6.3 K/mcL (4.3-11.1)
[2020-03-17 00:26] LABS: Heparin anti-factor XA UFH < 0.04 IU/mL (0.30-0.70); Prothrombin Time 11.2 Seconds (9.4-12.1)
[2020-03-17] MEDS: Heparin 25,000UNIT/250ML 1/2NS 25,000 UNIT/250 ML IV.SOLN IVC SCH (00:44)
[2020-03-17] MEDS: Levalbuterol Neb 1.25 MG/3 ML IH SCH ×4 (03:17→22:17)
[2020-03-17] MEDS: *HR* LORazepam 2 MG/ML VIAL IVP PRN (05:32)
[2020-03-17] MEDS: Cefepime HCl 2,000 MG in Water for inj. (sterile) 20 ML IVP SCH (05:33)
[2020-03-17] MEDS ORDERED: Pantoprazole 40 MG VIAL IVP SCH (09:00)
[2020-03-17] MEDS: Cholecalciferol (D-3) 1,000 UNIT (25MCG) TABLET PO SCH (09:34)
[2020-03-17] MEDS: Cyanocobalamin (B-12) 1,000 MCG TABLET PO SCH (09:34)
[2020-03-17] MEDS: Bisoprolol/HCTZ 5/6.25 TABLET PO SCH (09:34)
[2020-03-17] MEDS: Potassium Chloride Elixir 20 MEQ/15 ML UDC PO SCH ×2 (09:36→17:00)
[2020-03-17] MEDS: levETIRAcetam 1,000 MG in 0.9 % Sodium Chloride 100 ML IVPB SCH ×2 (10:13→13:55)
[2020-03-17] MEDS: Budesonide/Formoterol 160/4.5 1 PUFF INH IH SCH ×2 (10:22→22:17)
[2020-03-17] MEDS: levETIRAcetam 250 MG TABLET PO SCH (16:59)
[2020-03-17] MEDS: Thiamine (B-1) 100 MG, Folic Acid 1 MG, MVI, adult with vitamin K 10 ML in 0.9 % Sodi... IVPB SCH (17:21)
[2020-03-17] MEDS: Melatonin 3 MG TABLET PO PRN (23:56)
[2020-03-18 00:53] LABS: Hematocrit 35.4 % (37.5-50.1); Hemoglobin 11.4 g/dL (12.9-16.9); Mean Corpuscular HGB Conc 32.2 g/dL (31.6-35.5); Mean Corpuscular Hemoglobin 30.3 pg (28.0-33.3); Mean Corpuscular Volume 94.1 fL (83.0-100.0); Mean Platelet Volume 11.1 fL (9.4-12.4); Platelet Count 217 K/mcL (140-400); Red Blood Count 3.76 M/mcL (4.19-5.50); Red Cell Distribution Width 16.2 % (11.5-14.5); White Blood Count 7.2 K/mcL (4.3-11.1)
[2020-03-18 01:05] LABS: BUN/Creatinine Ratio 19 (6-26); Blood Urea Nitrogen 12 mg/dL (8-23); Calcium 8.9 mg/dL (8.6-10.3); Carbon Dioxide 21 mEq/L (23-29); Chloride 105 mEq/L (98-107); Glucose 183 mg/dL (70-105); Magnesium 1.7 mg/dL (1.6-2.6); Osmolality,Calculated 280 (280-300); Phosphorous 2.2 mg/dL (2.7-4.5); Potassium 4.1 mEq/L (3.5-5.1); Sodium 133 mEq/L (136-145); eGFR For African Americans > 60 (> 60); eGFR For Non-African Americans > 60 (> 60)
[2020-03-18] MEDS: Heparin 25,000UNIT/250ML 1/2NS 25,000 UNIT/250 ML IV.SOLN IVC SCH (02:42)
[2020-03-18] MEDS: Levalbuterol Neb 1.25 MG/3 ML IH SCH ×2 (03:26→10:17)
[2020-03-18] MEDS ORDERED: Ibuprofen 600 MG TABLET PO PRN (04:38)
[2020-03-18] MEDS: levETIRAcetam 250 MG TABLET PO SCH (04:54)
[2020-03-18] MEDS: Potassium Chloride Elixir 20 MEQ/15 ML UDC PO SCH (07:47)
[2020-03-18] MEDS: Cyanocobalamin (B-12) 1,000 MCG TABLET PO SCH (07:47)
[2020-03-18] MEDS: Bisoprolol/HCTZ 5/6.25 TABLET PO SCH (07:47)
[2020-03-18] MEDS: Cholecalciferol (D-3) 1,000 UNIT (25MCG) TABLET PO SCH (07:47)
[2020-03-18] MEDS ORDERED: *HR* OxyCODONE Immed Rel 5 MG TABLET PO PRN (08:26)
[2020-03-18] MEDS: Budesonide/Formoterol 160/4.5 1 PUFF INH IH SCH (10:17)
[2020-03-18 11:36] VITALS: BP 135/82
[2020-03-18] MEDS ORDERED: FLU Vac QV 20-21 (6Month+)/PF 0.5 ML SYRINGE IM ONE (13:38)
[2020-03-18 16:00] LABS: HSV Source NOT PROVIDED
[2020-03-20 23:24] LABS: Phenytoin (Dilantin) Free 1.5 ug/mL (1.0-2.5)
[2020-03-21 08:05] LABS: Phenytoin Percent Free 11.2 % (8.0-14.0)
== END 2020-03-18 15:31 | disposition home or self-care (01) | DRG 871 ==
LOC: 3BNU 13:30 → EMEROOARM 13:30 → SUATTDRO 18:01 → 3BNU 18:40 → 2NNU 03-12 09:09 → ICNU 03-12 10:44 → 2NNU 03-16 10:04
PROVIDERS: ADMIT Internal Medicine; ATTEND Internal Medicine

== ENCOUNTER 2020-03-25 13:29 | Inpatient (IN) ==
[2020-03-25 13:52] LABS: Basophils # 0.1 K/mcL (0.0-0.2); Basophils % 0.8 %; Eosinophils # 0.1 K/mcL (0.0-0.6); Eosinophils % 0.7 %; Hematocrit 37.3 % (37.5-50.1); Hemoglobin 12.3 g/dL (12.9-16.9); Immature Granulocytes % 0.7 % (0-4); Lymphocytes # 2.2 K/mcL (0.6-4.6); Lymphocytes % 19.8 %; Mean Corpuscular Hemoglobin 31.9 pg (28.0-33.3); Mean Corpuscular Volume 96.9 fL (83.0-100.0); Mean Platelet Volume 10.6 fL (9.4-12.4); Monocytes # 0.9 K/mcL (0.0-1.3); Monocytes % 7.7 %; Neutrophils # 7.7 K/mcL (1.6-8.9); Platelet Count 345 K/mcL (140-400); Red Blood Count 3.85 M/mcL (4.19-5.50); Red Cell Distribution Width 15.9 % (11.5-14.5); Segmented Neutrophils % 70.3 %
[2020-03-25 14:39] LABS: Alanine Aminotransferase 40 Units/L (7-52); Albumin 3.7 g/dL (3.5-5.7); Albumin/Globulin Ratio 1.2 (1.1-2.2); Alkaline Phosphatase 130 Units/L (34-104); Aspartate Amino Transferase 64 Units/L (13-39); BUN/Creatinine Ratio 17 (6-26); Bilirubin,Direct 0.1 mg/dL (0.0-0.2); Bilirubin,Indirect 0.4 mg/dL (0.0-1.0); Bilirubin,Total 0.5 mg/dL (0.3-1.0); Blood Urea Nitrogen 12 mg/dL (8-23); Calcium 9.9 mg/dL (8.6-10.3); Carbon Dioxide 20 mEq/L (23-29); Chloride 98 mEq/L (98-107); Ethanol < 10 mg/dL (Less than 10); Globulin 3.2 g/dL (2.4-3.5); Glucose 84 mg/dL (70-105); Osmolality,Calculated 275 (280-300); Potassium 3.9 mEq/L (3.5-5.1); Sodium 133 mEq/L (136-145); Total Protein 6.9 g/dL (6.4-8.9); Troponin I 0.03 ng/mL (< 0.04); Valproate < 4 mcg/mL (50-100); eGFR For African Americans > 60 (> 60); eGFR For Non-African Americans > 60 (> 60)
[2020-03-25 15:02] LABS: Bilirubin,Urine Negative (Negative); Blood,Urine Moderate (Negative); Clarity,Urine Clear (Clear); Color,Urine Yellow (Yellow); Glucose,Urine (UA) Normal (Normal); Ketones,Urine 60 mg/dL (Negative); Leukocyte Esterase,Urine Negative (Negative); Mucus,Urine Few per lpf (None-Few); Nitrite,Urine Negative (Negative); PH,Urine 5.5 pH Units (5.0-8.0); Protein,Urine Negative (Neg-Trace); RBC,Urine 50-100 per hpf (0-3); Specific Gravity,Urine 1.016 (1.010-1.025); Urobilinogen,Urine Normal (Normal)
[2020-03-25 15:10] LABS: Amphetamine Screen,Urine Negative ng/mL (Cutoff=1000); Barbiturate Screen,Urine Negative ng/mL (Cutoff=200); Benzodiazepines Screen,Urine Positive ng/mL (Cutoff=200); Cannabinoid Screen,Urine Negative ng/mL (Cutoff = 50); Cocaine Screen,Urine Negative ng/mL (Cutoff= 300); Opiate Screen,Urine Negative ng/mL (Cutoff=300); Phencyclidine Screen,Urine Negative ng/mL (Cutoff=25)
[2020-03-25] MEDS ORDERED: Naloxone 0.4 MG/ML INJ IVP PRN (16:42)
[2020-03-25] MEDS ORDERED: 0.9 % Sodium Chloride 1,000 ML IVC SCH (17:00)
[2020-03-25] MEDS ORDERED: *HR* LORazepam 2 MG/ML VIAL IVP ONE (17:45)
[2020-03-25] MEDS ORDERED: *HR* LORazepam 2 MG/ML VIAL ONE (17:47)
[2020-03-25] MEDS ORDERED: *HR* LORazepam 2 MG/ML VIAL IVP PRN (17:48)
[2020-03-25] MEDS ORDERED: levETIRAcetam 1,000 MG in 0.9 % Sodium Chloride 100 ML IVPB ONE (17:48)
[2020-03-25] MEDS ORDERED: Phenytoin 1,000 MG in 0.9 % Sodium Chloride 50 ML IVPB ONE (18:03)
[2020-03-25] MEDS ORDERED: Melatonin 3 MG TABLET PO PRN (18:17)
[2020-03-25] MEDS ORDERED: *HR* Heparin 5,000 UNIT/ML VIAL IVP ONE (18:50)
[2020-03-25] MEDS ORDERED: *HR* Heparin 5,000 UNIT/ML VIAL IVP PRN (18:50)
[2020-03-25] MEDS ORDERED: Thiamine (B-1) 100 MG in 0.9 % Sodium Chloride 50 ML IVPB ONE (18:54)
[2020-03-25] MEDS ORDERED: Folic Acid 1 MG in 0.9 % Sodium Chloride 50 ML IVPB ONE (18:54)
[2020-03-25] MEDS: *HR* LORazepam 2 MG/ML VIAL IVP PRN (18:56)
[2020-03-25 20:50] LABS: INR 1.1; Prothrombin Time 12.3 Seconds (9.4-12.1)
[2020-03-25 20:53] LABS: Activated Partial Thrombo Time 30.9 Seconds (26.0-36.0); Heparin anti-factor XA UFH < 0.04 IU/mL (0.30-0.70)
[2020-03-25] MEDS ORDERED: levETIRAcetam 250 MG TABLET PO SCH (21:00)
[2020-03-25] MEDS: Lactulose Oral Soln 20 GM/30 ML UDC PO SCH (21:03)
[2020-03-25] MEDS: levETIRAcetam 1,000 MG in 0.9 % Sodium Chloride 100 ML IVPB SCH ×2 (21:04→21:38)
[2020-03-25] MEDS: Heparin 25,000UNIT/250ML 1/2NS 25,000 UNIT/250 ML IV.SOLN IVC SCH (21:28)
[2020-03-26 04:50] LABS: Alanine Aminotransferase 36 Units/L (7-52); Albumin 3.5 g/dL (3.5-5.7); Albumin/Globulin Ratio 1.2 (1.1-2.2); Alkaline Phosphatase 114 Units/L (34-104); Aspartate Amino Transferase 55 Units/L (13-39); BUN/Creatinine Ratio 16 (6-26); Bilirubin,Direct 0.1 mg/dL (0.0-0.2); Bilirubin,Indirect 0.4 mg/dL (0.0-1.0); Bilirubin,Total 0.5 mg/dL (0.3-1.0); Blood Urea Nitrogen 12 mg/dL (8-23); Calcium 9.2 mg/dL (8.6-10.3); Carbon Dioxide 19 mEq/L (23-29); Chloride 102 mEq/L (98-107); Glucose 91 mg/dL (70-105); Osmolality,Calculated 277 (280-300); Potassium 3.8 mEq/L (3.5-5.1); Sodium 134 mEq/L (136-145); Total Protein 6.5 g/dL (6.4-8.9); eGFR For African Americans > 60 (> 60); eGFR For Non-African Americans > 60 (> 60)
[2020-03-26] MEDS: *HR* Heparin 5,000 UNIT/ML VIAL IVP PRN (04:53)
[2020-03-26] MEDS: *HR* LORazepam 2 MG/ML VIAL IVP PRN (08:01)
[2020-03-26] MEDS: Folic Acid 1 MG TABLET PO SCH (08:55)
[2020-03-26] MEDS: Thiamine (B-1) 100 MG TABLET PO SCH (08:55)
[2020-03-26] MEDS: Lactulose Oral Soln 20 GM/30 ML UDC PO SCH ×2 (08:55→20:25)
[2020-03-26] MEDS: Cyanocobalamin (B-12) 1,000 MCG TABLET PO SCH (08:55)
[2020-03-26] MEDS: Cholecalciferol (D-3) 1,000 UNIT (25MCG) TABLET PO SCH (08:55)
[2020-03-26] MEDS: levETIRAcetam 1,000 MG in 0.9 % Sodium Chloride 100 ML IVPB SCH ×2 (10:02→20:25)
[2020-03-26] MEDS ORDERED: Divalproex (12 HR) 500 MG TABLET PO ONE (13:30)
[2020-03-26 13:58] LABS: Magnesium 1.8 mg/dL (1.6-2.6); Phosphorous 3.9 mg/dL (2.7-4.5)
[2020-03-26] MEDS ORDERED: PHENobarbitaL 32.4 MG TABLET PO ONE (14:50)
[2020-03-26] MEDS: PHENobarbitaL 32.4 MG TABLET PO SCH (20:25)
[2020-03-26] MEDS: Heparin 25,000UNIT/250ML 1/2NS 25,000 UNIT/250 ML IV.SOLN IVC SCH (20:42)
[2020-03-26] MEDS ORDERED: Divalproex (12 HR) 500 MG TABLET PO SCH (21:00)
[2020-03-27] MEDS: *HR* LORazepam 2 MG/ML VIAL IVP PRN ×2 (02:38→20:03)
[2020-03-27] MEDS: PHENobarbitaL 32.4 MG TABLET PO SCH ×2 (08:01→19:59)
[2020-03-27] MEDS: Cyanocobalamin (B-12) 1,000 MCG TABLET PO SCH (08:01)
[2020-03-27] MEDS: Lactulose Oral Soln 20 GM/30 ML UDC PO SCH ×2 (08:01→19:59)
[2020-03-27] MEDS: Cholecalciferol (D-3) 1,000 UNIT (25MCG) TABLET PO SCH (08:01)
[2020-03-27] MEDS: Thiamine (B-1) 100 MG TABLET PO SCH (08:02)
[2020-03-27] MEDS: Folic Acid 1 MG TABLET PO SCH (08:02)
[2020-03-27] MEDS: levETIRAcetam 1,000 MG in 0.9 % Sodium Chloride 100 ML IVPB SCH ×2 (08:30→20:02)
[2020-03-27] MEDS: Heparin 25,000UNIT/250ML 1/2NS 25,000 UNIT/250 ML IV.SOLN IVC SCH (20:03)
[2020-03-28] MEDS: *HR* LORazepam 2 MG/ML VIAL IVP PRN ×3 (00:58→19:46)
[2020-03-28] MEDS: Lactulose Oral Soln 20 GM/30 ML UDC PO SCH ×2 (09:31→19:46)
[2020-03-28] MEDS: Cholecalciferol (D-3) 1,000 UNIT (25MCG) TABLET PO SCH (09:31)
[2020-03-28] MEDS: PHENobarbitaL 32.4 MG TABLET PO SCH ×2 (09:31→19:46)
[2020-03-28] MEDS: Folic Acid 1 MG TABLET PO SCH (09:31)
[2020-03-28] MEDS: Thiamine (B-1) 100 MG TABLET PO SCH (09:31)
[2020-03-28] MEDS: Cyanocobalamin (B-12) 1,000 MCG TABLET PO SCH (09:31)
[2020-03-28] MEDS: levETIRAcetam 1,000 MG in 0.9 % Sodium Chloride 100 ML IVPB SCH ×2 (09:39→19:47)
[2020-03-28] MEDS: Heparin 25,000UNIT/250ML 1/2NS 25,000 UNIT/250 ML IV.SOLN IVC SCH (17:53)
[2020-03-29] MEDS: *HR* LORazepam 2 MG/ML VIAL IVP PRN (02:35)
[2020-03-29] MEDS: *HR* Heparin 5,000 UNIT/ML VIAL IVP PRN (07:19)
[2020-03-29] MEDS: Cholecalciferol (D-3) 1,000 UNIT (25MCG) TABLET PO SCH (08:38)
[2020-03-29] MEDS: Cyanocobalamin (B-12) 1,000 MCG TABLET PO SCH (08:38)
[2020-03-29] MEDS: Thiamine (B-1) 100 MG TABLET PO SCH (08:38)
[2020-03-29] MEDS: Lactulose Oral Soln 20 GM/30 ML UDC PO SCH ×2 (08:39→21:21)
[2020-03-29] MEDS: Folic Acid 1 MG TABLET PO SCH (08:39)
[2020-03-29] MEDS: levETIRAcetam 1,000 MG in 0.9 % Sodium Chloride 100 ML IVPB SCH (08:39)
[2020-03-29] MEDS: PHENobarbitaL 32.4 MG TABLET PO SCH ×2 (08:39→21:21)
[2020-03-29] MEDS: amLODIPine 5 MG TABLET PO SCH (12:46)
[2020-03-29] MEDS: Heparin 25,000UNIT/250ML 1/2NS 25,000 UNIT/250 ML IV.SOLN IVC SCH (12:47)
[2020-03-29] MEDS ORDERED: Ibuprofen 600 MG TABLET PO ONE (15:20)
[2020-03-29] MEDS: levETIRAcetam 250 MG TABLET PO SCH (21:21)
[2020-03-29] MEDS ORDERED: Acetaminophen 325 MG TABLET PO PRN (23:53)
[2020-03-29] MEDS ORDERED: Ibuprofen 400 MG TABLET PO ONE (23:54)
[2020-03-30] MEDS ORDERED: Ketorolac 15 MG/ML VIAL IVP ONE (06:32)
[2020-03-30] MEDS: Thiamine (B-1) 100 MG TABLET PO SCH (07:53)
[2020-03-30] MEDS: levETIRAcetam 250 MG TABLET PO SCH (07:53)
[2020-03-30] MEDS: PHENobarbitaL 32.4 MG TABLET PO SCH (07:53)
[2020-03-30] MEDS: Cyanocobalamin (B-12) 1,000 MCG TABLET PO SCH (07:53)
[2020-03-30] MEDS: Cholecalciferol (D-3) 1,000 UNIT (25MCG) TABLET PO SCH (07:53)
[2020-03-30] MEDS: amLODIPine 5 MG TABLET PO SCH (07:53)
[2020-03-30] MEDS: Folic Acid 1 MG TABLET PO SCH (07:53)
[2020-03-30] MEDS: Lactulose Oral Soln 20 GM/30 ML UDC PO SCH (07:53)
[2020-03-30] MEDS: Heparin 25,000UNIT/250ML 1/2NS 25,000 UNIT/250 ML IV.SOLN IVC SCH (07:54)
[2020-03-30 08:19] LABS: BUN/Creatinine Ratio 20 (6-26); Blood Urea Nitrogen 13 mg/dL (8-23); Calcium 9.4 mg/dL (8.6-10.3); Carbon Dioxide 24 mEq/L (23-29); Chloride 104 mEq/L (98-107); Creatine Kinase 37 Units/L (30-223); Glucose 104 mg/dL (70-105); Osmolality,Calculated 282 (280-300); Potassium 3.4 mEq/L (3.5-5.1); Sodium 136 mEq/L (136-145); eGFR For African Americans > 60 (> 60); eGFR For Non-African Americans > 60 (> 60)
[2020-03-30] MEDS ORDERED: *HR* Rivaroxaban 15 MG TABLET PO SCH (10:47)
[2020-03-30 13:26] LABS: Adenovirus Not Detected (Not Detect); Bordetella Pertussis Not Detected (Not Detect); Chlamydophila pneumoniae Not Detected (Not Detect); Coronavirus 229E Not Detected (Not Detect); Coronavirus HKU1 Not Detected (Not Detect); Coronavirus NL63 Not Detected (Not Detect); Coronavirus OC43 Not Detected (Not Detect); Human Metapneumovirus Not Detected (Not Detect); Human Rhinovirus/Enterovirus Not Detected (Not Detect); Influenza A Subtype 2009 H1 Not Detected (Not Detect); Influenza B Not Detected (Not Detect); Mycoplasma pneumoniae Not Detected (Not Detect); Parainfluenza Virus 1 Not Detected (Not Detect); Parainfluenza Virus 2 Not Detected (Not Detect); Parainfluenza Virus 3 Not Detected (Not Detect); Parainfluenza Virus 4 Not Detected (Not Detect); Respiratory Syncytial Virus Not Detected (Not Detect); SARS-CoV-2 Not Detected (Not Detect)
[2020-03-30 13:58] VITALS: BP 168/80
== END 2020-03-30 15:13 | disposition other institution (70) | DRG 101 ==
LOC: 3BNU 13:29 → EMEROOARM 13:29 → SUATTDRO 16:39 → 2NNU 17:32 → 3ANU 03-30 11:27
PROVIDERS: ADMIT Internal Medicine; ATTEND Internal Medicine

== ENCOUNTER 2020-04-04 13:44 | Inpatient (IN) ==
[2020-04-04] MEDS ORDERED: Acetaminophen 325 MG TABLET PO PRN (17:27)
[2020-04-04] MEDS ORDERED: Naloxone 0.4 MG/ML INJ IVP PRN (17:27)
[2020-04-04] MEDS ORDERED: Ondansetron 4 MG/2 ML VIAL IVP PRN (17:27)
[2020-04-04] MEDS ORDERED: *HR* LORazepam 2 MG/ML VIAL IVP PRN ×2 (18:17)
[2020-04-04] MEDS ORDERED: RIVAROXABAN PO SCH (19:00)
[2020-04-04 19:30] LABS: Hepatitis B Surface Antigen Nonreactive (Nonreactive)
[2020-04-04 19:59] LABS: Hepatitis C Virus Antibody Nonreactive (Nonreactive)
[2020-04-04] MEDS: *HR* Rivaroxaban 15 MG TABLET PO SCH (20:15)
[2020-04-04] MEDS: levETIRAcetam 250 MG TABLET PO SCH (20:15)
[2020-04-04] MEDS: Lactulose Oral Soln 20 GM/30 ML UDC PO SCH (20:16)
[2020-04-04] MEDS: PHENobarbitaL 32.4 MG TABLET PO SCH (20:16)
[2020-04-04] MEDS: Melatonin 3 MG TABLET PO PRN (20:18)
[2020-04-05 06:43] LABS: Basophils # 0.1 K/mcL (0.0-0.2); Basophils % 0.6 %; Eosinophils # 0.3 K/mcL (0.0-0.6); Eosinophils % 2.9 %; Hematocrit 41.7 % (37.5-50.1); Hemoglobin 13.3 g/dL (12.9-16.9); Immature Granulocytes % 0.6 % (0-4); Lymphocytes # 2.4 K/mcL (0.6-4.6); Lymphocytes % 23.7 %; Mean Corpuscular HGB Conc 31.9 g/dL (31.6-35.5); Mean Corpuscular Volume 93.9 fL (83.0-100.0); Monocytes # 0.8 K/mcL (0.0-1.3); Monocytes % 7.8 %; Neutrophils # 6.6 K/mcL (1.6-8.9); Platelet Count 321 K/mcL (140-400); Red Blood Count 4.44 M/mcL (4.19-5.50); Red Cell Distribution Width 14.6 % (11.5-14.5); Segmented Neutrophils % 64.4 %; White Blood Count 10.2 K/mcL (4.3-11.1)
[2020-04-05 06:59] LABS: BUN/Creatinine Ratio 21 (6-26); Blood Urea Nitrogen 15 mg/dL (8-23); Calcium 9.9 mg/dL (8.6-10.3); Carbon Dioxide 26 mEq/L (23-29); Chloride 101 mEq/L (98-107); Glucose 115 mg/dL (70-105); Osmolality,Calculated 282 (280-300); Potassium 4.1 mEq/L (3.5-5.1); Sodium 135 mEq/L (136-145); eGFR For African Americans > 60 (> 60); eGFR For Non-African Americans > 60 (> 60)
[2020-04-05] MEDS: Lactulose Oral Soln 20 GM/30 ML UDC PO SCH ×2 (08:47→21:12)
[2020-04-05] MEDS: levETIRAcetam 250 MG TABLET PO SCH ×2 (08:47→21:12)
[2020-04-05] MEDS: Thiamine (B-1) 100 MG TABLET PO SCH (08:48)
[2020-04-05] MEDS: Vitamin B Complex/Vit C/Vit E 1 EACH TABLET PO SCH (08:48)
[2020-04-05] MEDS: Folic Acid 1 MG TABLET PO SCH (08:48)
[2020-04-05] MEDS: PHENobarbitaL 32.4 MG TABLET PO SCH ×2 (08:48→21:12)
[2020-04-05] MEDS: Cyanocobalamin (B-12) 1,000 MCG TABLET PO SCH (08:48)
[2020-04-05] MEDS: Cholecalciferol (D-3) 1,000 UNIT (25MCG) TABLET PO SCH (08:48)
[2020-04-05] MEDS: amLODIPine 5 MG TABLET PO SCH (08:49)
[2020-04-05] MEDS: *HR* Rivaroxaban 15 MG TABLET PO SCH ×2 (08:49→21:12)
[2020-04-05] MEDS ORDERED: Folic Acid 1 MG TABLET PO SCH (09:00)
[2020-04-05] MEDS: *HR* LORazepam 2 MG/ML VIAL IVP PRN (16:42)
[2020-04-05] MEDS: *HR* HYDROcodone/Acet 5/325 mg TABLET PO PRN (18:38)
[2020-04-05] MEDS: Nystatin POWDER 30 GM BOTTLE TP SCH (18:41)
[2020-04-05 22:53] LABS: Amphetamine Screen,Urine Negative ng/mL (Cutoff=1000); Barbiturate Screen,Urine Positive ng/mL (Cutoff=200); Benzodiazepines Screen,Urine Negative ng/mL (Cutoff=200); Cannabinoid Screen,Urine Negative ng/mL (Cutoff = 50); Cocaine Screen,Urine Negative ng/mL (Cutoff= 300); Opiate Screen,Urine Negative ng/mL (Cutoff=300); Phencyclidine Screen,Urine Negative ng/mL (Cutoff=25)
[2020-04-06 06:18] LABS: Basophils # 0.1 K/mcL (0.0-0.2); Basophils % 0.7 %; Eosinophils # 0.3 K/mcL (0.0-0.6); Eosinophils % 2.5 %; Hematocrit 40.7 % (37.5-50.1); Immature Granulocytes % 0.8 % (0-4); Lymphocytes # 2.9 K/mcL (0.6-4.6); Lymphocytes % 27.8 %; Mean Corpuscular HGB Conc 31.9 g/dL (31.6-35.5); Mean Corpuscular Hemoglobin 29.5 pg (28.0-33.3); Mean Corpuscular Volume 92.3 fL (83.0-100.0); Monocytes # 0.8 K/mcL (0.0-1.3); Monocytes % 8.1 %; Neutrophils # 6.3 K/mcL (1.6-8.9); Platelet Count 309 K/mcL (140-400); Red Blood Count 4.41 M/mcL (4.19-5.50); Red Cell Distribution Width 14.4 % (11.5-14.5); Segmented Neutrophils % 60.1 %; White Blood Count 10.4 K/mcL (4.3-11.1)
[2020-04-06 06:26] LABS: BUN/Creatinine Ratio 29 (6-26); Blood Urea Nitrogen 18 mg/dL (8-23); Calcium 9.8 mg/dL (8.6-10.3); Carbon Dioxide 25 mEq/L (23-29); Chloride 102 mEq/L (98-107); Glucose 106 mg/dL (70-105); Magnesium 1.9 mg/dL (1.6-2.6); Osmolality,Calculated 280 (280-300); Potassium 3.7 mEq/L (3.5-5.1); Sodium 134 mEq/L (136-145); eGFR For African Americans > 60 (> 60); eGFR For Non-African Americans > 60 (> 60)
[2020-04-06] MEDS: Lactulose Oral Soln 20 GM/30 ML UDC PO SCH ×2 (08:10→21:50)
[2020-04-06] MEDS: Cyanocobalamin (B-12) 1,000 MCG TABLET PO SCH (08:11)
[2020-04-06] MEDS: Folic Acid 1 MG TABLET PO SCH (08:11)
[2020-04-06] MEDS: *HR* Rivaroxaban 15 MG TABLET PO SCH ×2 (08:11→21:50)
[2020-04-06] MEDS: levETIRAcetam 250 MG TABLET PO SCH ×2 (08:11→21:50)
[2020-04-06] MEDS: Vitamin B Complex/Vit C/Vit E 1 EACH TABLET PO SCH (08:11)
[2020-04-06] MEDS: Thiamine (B-1) 100 MG TABLET PO SCH (08:12)
[2020-04-06] MEDS: *HR* HYDROcodone/Acet 5/325 mg TABLET PO PRN ×2 (08:12→21:52)
[2020-04-06] MEDS: Cholecalciferol (D-3) 1,000 UNIT (25MCG) TABLET PO SCH (08:12)
[2020-04-06] MEDS: PHENobarbitaL 32.4 MG TABLET PO SCH ×2 (08:12→21:50)
[2020-04-06] MEDS: amLODIPine 5 MG TABLET PO SCH (08:12)
[2020-04-06] MEDS: Nystatin POWDER 30 GM BOTTLE TP SCH ×3 (08:14→21:56)
[2020-04-06] MEDS: Metoprolol XL (24 HR) Succ 25 MG TAB.ER.24H PO SCH (12:08)
[2020-04-06] MEDS: *HR* LORazepam 2 MG/ML VIAL IVP PRN ×2 (12:08→18:09)
[2020-04-06] MEDS: Melatonin 3 MG TABLET PO PRN (21:53)
[2020-04-07] MEDS: *HR* LORazepam 2 MG/ML VIAL IVP PRN (00:16)
[2020-04-07 01:19] LABS: Basophils # 0.1 K/mcL (0.0-0.2); Basophils % 0.8 %; Eosinophils # 0.3 K/mcL (0.0-0.6); Eosinophils % 3.3 %; Hematocrit 39.4 % (37.5-50.1); Hemoglobin 12.5 g/dL (12.9-16.9); Immature Granulocytes % 0.9 % (0-4); Lymphocytes % 29.7 %; Mean Corpuscular HGB Conc 31.7 g/dL (31.6-35.5); Mean Corpuscular Hemoglobin 29.5 pg (28.0-33.3); Mean Corpuscular Volume 92.9 fL (83.0-100.0); Mean Platelet Volume 11.3 fL (9.4-12.4); Monocytes # 0.9 K/mcL (0.0-1.3); Monocytes % 8.4 %; Neutrophils # 5.8 K/mcL (1.6-8.9); Platelet Count 295 K/mcL (140-400); Red Blood Count 4.24 M/mcL (4.19-5.50); Red Cell Distribution Width 14.3 % (11.5-14.5); Segmented Neutrophils % 56.9 %; White Blood Count 10.2 K/mcL (4.3-11.1)
[2020-04-07 01:39] LABS: BUN/Creatinine Ratio 23 (6-26); Blood Urea Nitrogen 14 mg/dL (8-23); Calcium 9.6 mg/dL (8.6-10.3); Carbon Dioxide 26 mEq/L (23-29); Chloride 99 mEq/L (98-107); Glucose 128 mg/dL (70-105); Magnesium 1.8 mg/dL (1.6-2.6); Osmolality,Calculated 278 (280-300); Potassium 4.5 mEq/L (3.5-5.1); Sodium 133 mEq/L (136-145); eGFR For African Americans > 60 (> 60); eGFR For Non-African Americans > 60 (> 60)
[2020-04-07] MEDS: Cyanocobalamin (B-12) 1,000 MCG TABLET PO SCH (07:34)
[2020-04-07] MEDS: Metoprolol XL (24 HR) Succ 25 MG TAB.ER.24H PO SCH (07:34)
[2020-04-07] MEDS: Thiamine (B-1) 100 MG TABLET PO SCH (07:34)
[2020-04-07] MEDS: Cholecalciferol (D-3) 1,000 UNIT (25MCG) TABLET PO SCH (07:34)
[2020-04-07] MEDS: Lactulose Oral Soln 20 GM/30 ML UDC PO SCH ×2 (07:34→20:42)
[2020-04-07] MEDS: Vitamin B Complex/Vit C/Vit E 1 EACH TABLET PO SCH (07:35)
[2020-04-07] MEDS: Folic Acid 1 MG TABLET PO SCH (07:35)
[2020-04-07] MEDS: levETIRAcetam 250 MG TABLET PO SCH ×2 (07:35→20:42)
[2020-04-07] MEDS: PHENobarbitaL 32.4 MG TABLET PO SCH ×2 (07:35→20:42)
[2020-04-07] MEDS: amLODIPine 5 MG TABLET PO SCH (07:35)
[2020-04-07] MEDS: Nystatin POWDER 30 GM BOTTLE TP SCH ×3 (07:42→20:42)
[2020-04-07] MEDS: *HR* HYDROcodone/Acet 5/325 mg TABLET PO PRN ×2 (08:00→22:57)
[2020-04-07] MEDS: Nicotine 7 MG PATCH.TD24 TD SCH (10:46)
[2020-04-07] MEDS ORDERED: *HR* LORazepam 2 MG/ML VIAL IVP ONE (12:27)
[2020-04-07] MEDS: *HR* Rivaroxaban 10 MG TABLET PO SCH (16:27)
[2020-04-07] MEDS: Melatonin 3 MG TABLET PO PRN (20:46)
[2020-04-08] MEDS ORDERED: *HR* LORazepam 1 MG TABLET PO ONE (01:03)
[2020-04-08 02:28] LABS: Basophils # 0.1 K/mcL (0.0-0.2); Basophils % 0.6 %; Eosinophils # 0.4 K/mcL (0.0-0.6); Eosinophils % 3.4 %; Hematocrit 42.3 % (37.5-50.1); Hemoglobin 13.4 g/dL (12.9-16.9); Immature Granulocytes % 0.7 % (0-4); Lymphocytes # 3.4 K/mcL (0.6-4.6); Lymphocytes % 31.2 %; Mean Corpuscular HGB Conc 31.7 g/dL (31.6-35.5); Mean Corpuscular Volume 94.8 fL (83.0-100.0); Mean Platelet Volume 11.1 fL (9.4-12.4); Monocytes # 0.7 K/mcL (0.0-1.3); Monocytes % 6.3 %; Neutrophils # 6.3 K/mcL (1.6-8.9); Platelet Count 320 K/mcL (140-400); Red Blood Count 4.46 M/mcL (4.19-5.50); Red Cell Distribution Width 14.1 % (11.5-14.5); Segmented Neutrophils % 57.8 %
[2020-04-08 02:48] LABS: BUN/Creatinine Ratio 19 (6-26); Blood Urea Nitrogen 14 mg/dL (8-23); Carbon Dioxide 24 mEq/L (23-29); Chloride 100 mEq/L (98-107); Glucose 146 mg/dL (70-105); Magnesium 1.9 mg/dL (1.6-2.6); Osmolality,Calculated 279 (280-300); Potassium 4.2 mEq/L (3.5-5.1); Sodium 133 mEq/L (136-145); eGFR For African Americans > 60 (> 60); eGFR For Non-African Americans > 60 (> 60)
[2020-04-08 02:58] LABS: Estimated Average Glucose 128 mg/dl
[2020-04-08] MEDS: Vitamin B Complex/Vit C/Vit E 1 EACH TABLET PO SCH (08:14)
[2020-04-08] MEDS: Cholecalciferol (D-3) 1,000 UNIT (25MCG) TABLET PO SCH (08:14)
[2020-04-08] MEDS: levETIRAcetam 250 MG TABLET PO SCH ×2 (08:14→19:31)
[2020-04-08] MEDS: Lactulose Oral Soln 20 GM/30 ML UDC PO SCH ×2 (08:14→19:30)
[2020-04-08] MEDS: *HR* HYDROcodone/Acet 5/325 mg TABLET PO PRN (08:15)
[2020-04-08] MEDS: Thiamine (B-1) 100 MG TABLET PO SCH (08:15)
[2020-04-08] MEDS: Folic Acid 1 MG TABLET PO SCH (08:15)
[2020-04-08] MEDS: Nicotine 7 MG PATCH.TD24 TD SCH (08:15)
[2020-04-08] MEDS: amLODIPine 5 MG TABLET PO SCH (08:15)
[2020-04-08] MEDS: Cyanocobalamin (B-12) 1,000 MCG TABLET PO SCH (08:16)
[2020-04-08] MEDS: PHENobarbitaL 32.4 MG TABLET PO SCH ×2 (08:16→19:31)
[2020-04-08] MEDS: Metoprolol XL (24 HR) Succ 25 MG TAB.ER.24H PO SCH (08:17)
[2020-04-08] MEDS: Nystatin POWDER 30 GM BOTTLE TP SCH ×3 (08:21→19:31)
[2020-04-08] MEDS ORDERED: *HR* LORazepam 2 MG/ML VIAL IVP ONE (14:59)
[2020-04-08] MEDS ORDERED: QUEtiapine Fumarate 25 MG TABLET PO ONE (17:18)
[2020-04-08] MEDS: *HR* Rivaroxaban 10 MG TABLET PO SCH (18:55)
[2020-04-09] MEDS: *HR* HYDROcodone/Acet 5/325 mg TABLET PO PRN ×3 (04:46→23:03)
[2020-04-09] MEDS: Metoprolol XL (24 HR) Succ 25 MG TAB.ER.24H PO SCH (10:42)
[2020-04-09] MEDS: Lactulose Oral Soln 20 GM/30 ML UDC PO SCH ×2 (10:42→19:29)
[2020-04-09] MEDS: Folic Acid 1 MG TABLET PO SCH (10:43)
[2020-04-09] MEDS: levETIRAcetam 250 MG TABLET PO SCH ×2 (10:43→19:30)
[2020-04-09] MEDS: amLODIPine 5 MG TABLET PO SCH (10:43)
[2020-04-09] MEDS: Nicotine 7 MG PATCH.TD24 TD SCH (10:43)
[2020-04-09] MEDS: Nystatin POWDER 30 GM BOTTLE TP SCH ×3 (10:45→23:09)
[2020-04-09] MEDS: Thiamine (B-1) 100 MG TABLET PO SCH (10:45)
[2020-04-09] MEDS: Cholecalciferol (D-3) 1,000 UNIT (25MCG) TABLET PO SCH (10:45)
[2020-04-09] MEDS: Cyanocobalamin (B-12) 1,000 MCG TABLET PO SCH (10:45)
[2020-04-09] MEDS: Vitamin B Complex/Vit C/Vit E 1 EACH TABLET PO SCH (10:45)
[2020-04-09] MEDS: PHENobarbitaL 32.4 MG TABLET PO SCH ×2 (10:45→19:29)
[2020-04-09 18:04] LABS: INR 1.2; Prothrombin Time 13.3 Seconds (9.4-12.1)
[2020-04-09] MEDS: *HR* Rivaroxaban 10 MG TABLET PO SCH (18:06)
[2020-04-09 18:14] LABS: Basophils # 0.1 K/mcL (0.0-0.2); Basophils % 0.6 %; Eosinophils # 0.3 K/mcL (0.0-0.6); Eosinophils % 2.2 %; Hematocrit 45.4 % (37.5-50.1); Hemoglobin 14.8 g/dL (12.9-16.9); Immature Granulocytes % 0.7 % (0-4); Lymphocytes # 3.9 K/mcL (0.6-4.6); Lymphocytes % 30.6 %; Mean Corpuscular HGB Conc 32.6 g/dL (31.6-35.5); Mean Corpuscular Hemoglobin 30.9 pg (28.0-33.3); Mean Corpuscular Volume 94.8 fL (83.0-100.0); Monocytes # 0.8 K/mcL (0.0-1.3); Monocytes % 6.6 %; Neutrophils # 7.5 K/mcL (1.6-8.9); Platelet Count 327 K/mcL (140-400); Red Blood Count 4.79 M/mcL (4.19-5.50); Red Cell Distribution Width 14.3 % (11.5-14.5); Segmented Neutrophils % 59.3 %; White Blood Count 12.6 K/mcL (4.3-11.1)
[2020-04-09 18:20] LABS: BUN/Creatinine Ratio 19 (6-26); Blood Urea Nitrogen 13 mg/dL (8-23); Carbon Dioxide 25 mEq/L (23-29); Chloride 99 mEq/L (98-107); Glucose 146 mg/dL (70-105); Osmolality,Calculated 277 (280-300); Potassium 4.4 mEq/L (3.5-5.1); Sodium 132 mEq/L (136-145); Troponin I < 0.03 ng/mL (< 0.04); eGFR For African Americans > 60 (> 60); eGFR For Non-African Americans > 60 (> 60)
[2020-04-09] MEDS: Melatonin 3 MG TABLET PO PRN (19:57)
[2020-04-09] MEDS ORDERED: QUEtiapine Fumarate 25 MG TABLET PO ONE (20:00)
[2020-04-10] MEDS ORDERED: *HR* LORazepam 2 MG/ML VIAL IVP ONE (00:06)
[2020-04-10 07:01] VITALS: BP 140/77
[2020-04-10] MEDS: Lactulose Oral Soln 20 GM/30 ML UDC PO SCH (09:34)
[2020-04-10] MEDS: Folic Acid 1 MG TABLET PO SCH (09:34)
[2020-04-10] MEDS: amLODIPine 5 MG TABLET PO SCH (09:34)
[2020-04-10] MEDS: *HR* HYDROcodone/Acet 5/325 mg TABLET PO PRN (09:34)
[2020-04-10] MEDS: Metoprolol XL (24 HR) Succ 25 MG TAB.ER.24H PO SCH (09:35)
[2020-04-10] MEDS: Cholecalciferol (D-3) 1,000 UNIT (25MCG) TABLET PO SCH (09:35)
[2020-04-10] MEDS: Cyanocobalamin (B-12) 1,000 MCG TABLET PO SCH (09:35)
[2020-04-10] MEDS: Thiamine (B-1) 100 MG TABLET PO SCH (09:35)
[2020-04-10] MEDS: Nicotine 7 MG PATCH.TD24 TD SCH (09:35)
[2020-04-10] MEDS: PHENobarbitaL 32.4 MG TABLET PO SCH (09:35)
[2020-04-10] MEDS: levETIRAcetam 250 MG TABLET PO SCH (09:35)
[2020-04-10] MEDS: Vitamin B Complex/Vit C/Vit E 1 EACH TABLET PO SCH (09:35)
[2020-04-10] MEDS: Nystatin POWDER 30 GM BOTTLE TP SCH (09:36)
== END 2020-04-10 11:50 | disposition home health service (06) | DRG 897 ==
LOC: 2NNU → SUATTDRO 16:22 → 2ANU 04-06 11:32
PROVIDERS: ADMIT Pharmacist; ATTEND Internal Medicine

== ENCOUNTER 2020-05-10 10:18 | Inpatient (IN) ==
[~2020-05-10 10:18] MED LIST: Acetaminophen IV 1,000 MG/100 ML INFUS..BTL IVPB ONE; Celecoxib 100 MG CAPSULE PO ONE; Famotidine 20 MG/2 ML VIAL IVP ONE
[2020-05-10] MEDS ORDERED: Ondansetron 4 MG/2 ML VIAL ONE (10:36)
[2020-05-10] MEDS ORDERED: Dexamethasone 4 MG/ML VIAL ONE (10:36)
[2020-05-10] MEDS ORDERED: *HR* Succinylcholine 200 MG/10 ML VIAL IVP ONE (10:36)
[2020-05-10] MEDS ORDERED: Lidocaine -MPF 2% 2 ML VIAL ONE (10:36)
[2020-05-10] MEDS ORDERED: Lidocaine HCL 4 ML Topical Solution (Laryng-O-Jet Kit Sterile Pak) TP ONE (10:37)
[2020-05-10] MEDS ORDERED: *HR* Propofol 200 MG/20 ML VIAL IVP ONE (10:37)
[2020-05-10] MEDS ORDERED: Clindamycin 900 MG/50 ML 900 MG/50 ML IV.SOLN IVPB ONE (10:38)
[2020-05-10] MEDS ORDERED: Ringers Solution, Lactated 1,000 ML IVC SCH ×2 (10:45→14:00)
[2020-05-10] MEDS ORDERED: Vancomycin 1,000 MG VIAL ONE (11:01)
[2020-05-10] MEDS ORDERED: Ethanol\\Acetic Acid\\Na Ace\\Ben 1,000 ML IRRIG.SOLN IR ONE (11:01)
[2020-05-10] MEDS ORDERED: *HR* OxyCODONE Immed Rel 5 MG TABLET PO PRN ×2 (11:04→14:00)
[2020-05-10] MEDS ORDERED: *HR* HYDROmorphone PF 0.5 MG/0.5 ML SYRINGE IVP PRN (11:04)
[2020-05-10] MEDS ORDERED: *HR* Midazolam HCl 2 MG/2 ML VIAL IVP PRN (11:04)
[2020-05-10] MEDS ORDERED: Ondansetron 4 MG/2 ML VIAL IVP PRN ×2 (11:04→14:00)
[2020-05-10] MEDS ORDERED: *HR* Midazolam HCl 5 MG/5 ML VIAL IVP ONE (11:30)
[2020-05-10] MEDS ORDERED: Ropivacaine/PF 0.5% 30 ML VIAL ONE (11:30)
[2020-05-10] MEDS ORDERED: *HR* FentaNYL (PF) 100 MCG/2 ML VIAL ONE (11:30)
[2020-05-10] MEDS ORDERED: ROPIVACAINE/PF/NS 0.25% 1 EACH SYRINGE INTRAART ONE (11:30)
[2020-05-10] MEDS ORDERED: Povidone-Iodine 45 ML, Sodium Chloride IRRigation 1,000 ML IR ONE (12:10)
[2020-05-10] MEDS ORDERED: *HR* PHENYLEPHRINE 1,000 MCG/10 ML SYRINGE IVP ONE (12:11)
[2020-05-10 13:40] LABS: Hematocrit 36.9 % (37.5-50.1); Hemoglobin 11.6 g/dL (12.9-16.9)
[2020-05-10] MEDS ORDERED: Sennosides 8.6 MG TABLET PO PRN (14:00)
[2020-05-10] MEDS ORDERED: Dextrose Gel 15 GM/37.5 ML TUBE PO PRN ×2 (14:00)
[2020-05-10] MEDS ORDERED: Naloxone 0.4 MG/ML INJ IVP PRN (14:00)
[2020-05-10] MEDS ORDERED: *HR* Dextrose 50 % in Water (Vial) 50 ML VIAL IVP PRN (14:00)
[2020-05-10] MEDS ORDERED: MOM Conc 10 ML UD.LIQ PO PRN (14:00)
[2020-05-10] MEDS ORDERED: D5% in Water 1,000 ML IVC PRN (14:00)
[2020-05-10] MEDS ORDERED: *HR* OxyCODONE/APAP 5/325 TABLET PO PRN (14:00)
[2020-05-10] MEDS: Insulin LISPRO 300 UNITS/3 ML VIAL SQ SCH ×2 (15:16→17:04)
[2020-05-10] MEDS: Divalproex (12 HR) 500 MG TABLET PO SCH (15:22)
[2020-05-10] MEDS: Gabapentin 100 MG CAPSULE PO SCH ×2 (15:22→21:59)
[2020-05-10] MEDS ORDERED: *HR* Rivaroxaban 10 MG TABLET PO SCH (17:00)
[2020-05-10] MEDS: Clindamycin 900 MG/50 ML 900 MG/50 ML IV.SOLN IVPB SCH (18:36)
[2020-05-10] MEDS ORDERED: QUEtiapine Fumarate 100 MG TABLET PO SCH (21:00)
[2020-05-10] MEDS ORDERED: Melatonin 3 MG TABLET PO SCH (21:00)
[2020-05-10] MEDS ORDERED: Insulin LISPRO 300 UNITS/3 ML VIAL SQ SCH (21:00)
[2020-05-10] MEDS ORDERED: traZODone 50 MG TABLET PO SCH (21:00)
[2020-05-10] MEDS: PHENobarbitaL 32.4 MG TABLET PO SCH (21:58)
[2020-05-10] MEDS: Lactulose Oral Soln 20 GM/30 ML UDC PO SCH (21:59)
[2020-05-10] MEDS: levETIRAcetam 250 MG TABLET PO SCH (21:59)
[2020-05-10] MEDS: QUEtiapine Fumarate 25 MG TABLET PO SCH (23:01)
[2020-05-11] MEDS: Clindamycin 900 MG/50 ML 900 MG/50 ML IV.SOLN IVPB SCH (03:44)
[2020-05-11] MEDS: Divalproex (12 HR) 500 MG TABLET PO SCH (05:37)
[2020-05-11 07:06] VITALS: BP 125/77
[2020-05-11] MEDS: Insulin LISPRO 300 UNITS/3 ML VIAL SQ SCH (08:14)
[2020-05-11] MEDS ORDERED: Thiamine (B-1) 100 MG TABLET PO SCH (09:00)
[2020-05-11] MEDS ORDERED: Naltrexone HCl 50 MG TABLET PO SCH (09:00)
[2020-05-11] MEDS ORDERED: Folic Acid 1 MG TABLET PO SCH (09:00)
[2020-05-11] MEDS ORDERED: amLODIPine 5 MG TABLET PO SCH (09:00)
[2020-05-11] MEDS ORDERED: Cholecalciferol (D-3) 1,000 UNIT (25MCG) TABLET PO SCH (09:00)
[2020-05-11] MEDS ORDERED: Metoprolol XL (24 HR) Succ 25 MG TAB.ER.24H PO SCH (09:00)
[2020-05-11] MEDS ORDERED: Cyanocobalamin (B-12) 1,000 MCG TABLET PO SCH (09:00)
[2020-05-11 09:12] LABS: Hematocrit 38.1 % (37.5-50.1); Hemoglobin 11.9 g/dL (12.9-16.9)
[2020-05-11 09:25] LABS: BUN/Creatinine Ratio 26 (6-26); Blood Urea Nitrogen 21 mg/dL (8-23); Calcium 8.9 mg/dL (8.6-10.3); Carbon Dioxide 23 mEq/L (23-29); Chloride 103 mEq/L (98-107); Glucose 121 mg/dL (70-105); Osmolality,Calculated 284 (280-300); Potassium 4.2 mEq/L (3.5-5.1); Sodium 135 mEq/L (136-145); eGFR For African Americans > 60 (> 60); eGFR For Non-African Americans > 60 (> 60)
[2020-05-11] MEDS: PHENobarbitaL 32.4 MG TABLET PO SCH (09:49)
[2020-05-11] MEDS: Gabapentin 100 MG CAPSULE PO SCH (09:49)
[2020-05-11] MEDS: levETIRAcetam 250 MG TABLET PO SCH (09:49)
[2020-05-11] MEDS: Lactulose Oral Soln 20 GM/30 ML UDC PO SCH (09:49)
[2020-05-11] MEDS: QUEtiapine Fumarate 25 MG TABLET PO SCH (09:49)
== END 2020-05-11 10:15 | disposition home health service (06) | DRG 483 ==
LOC: SAMDAY 10:18 → 3NENU 13:38
PROVIDERS: ADMIT Orthopaedic Surgery; ATTEND Orthopaedic Surgery

== ENCOUNTER 2020-08-02 19:11 | Inpatient (IN) ==
[2020-08-02] MEDS ORDERED: Folic Acid 1 MG in 0.9 % Sodium Chloride 50 ML IVPB STA (19:23)
[2020-08-02] MEDS ORDERED: Thiamine (B-1) 100 MG in 0.9 % Sodium Chloride 50 ML IVPB STA (19:23)
[2020-08-02 20:28] LABS: Basophils # 0.1 K/mcL (0.0-0.2); Eosinophils % 0.2 %; Hematocrit 45.8 % (37.5-50.1); Lymphocytes # 2.3 K/mcL (0.6-4.6); Lymphocytes % 37.2 %; Mean Corpuscular HGB Conc 32.8 g/dL (31.6-35.5); Mean Corpuscular Volume 94.6 fL (83.0-100.0); Mean Platelet Volume 10.6 fL (9.4-12.4); Monocytes # 0.7 K/mcL (0.0-1.3); Monocytes % 10.9 %; Platelet Count 151 K/mcL (140-400); Red Blood Count 4.84 M/mcL (4.19-5.50); Red Cell Distribution Width 13.8 % (11.5-14.5); Segmented Neutrophils % 49.7 %; White Blood Count 6.1 K/mcL (4.3-11.1)
[2020-08-02 20:34] LABS: Activated Partial Thrombo Time 33.3 Seconds (26.0-36.0)
[2020-08-02] MEDS ORDERED: 0.9 % Sodium Chloride 1,000 ML IVC ONE ×3 (20:37→23:50)
[2020-08-02 20:40] LABS: BUN/Creatinine Ratio 29 (6-26); Blood Urea Nitrogen 18 mg/dL (8-23); Calcium 9.6 mg/dL (8.6-10.3); Carbon Dioxide 21 mEq/L (23-29); Chloride 92 mEq/L (98-107); Glucose 135 mg/dL (70-105); Osmolality,Calculated 274 (280-300); Potassium 4.1 mEq/L (3.5-5.1); Sodium 130 mEq/L (136-145); eGFR For African Americans > 60 (> 60); eGFR For Non-African Americans > 60 (> 60)
[2020-08-02 20:41] LABS: Albumin 4.4 g/dL (3.5-5.7); Albumin/Globulin Ratio 1.3 (1.1-2.2); Bilirubin,Direct 0.1 mg/dL (0.0-0.2); Bilirubin,Indirect 0.4 mg/dL (0.0-1.0); Bilirubin,Total 0.5 mg/dL (0.3-1.0); Globulin 3.5 g/dL (2.4-3.5); Total Protein 7.9 g/dL (6.4-8.9); Troponin I < 0.03 ng/mL (< 0.04)
[2020-08-02 20:41] LABS: Bilirubin,Urine Negative (Negative); Blood,Urine Negative (Negative); Clarity,Urine Clear (Clear); Color,Urine Yellow (Yellow); Glucose,Urine (UA) Normal (Normal); Ketones,Urine 10 mg/dL (Negative); Leukocyte Esterase,Urine Negative (Negative); Nitrite,Urine Negative (Negative); Protein,Urine Trace mg/dL (Neg-Trace); Specific Gravity,Urine 1.024 (1.010-1.025); Urobilinogen,Urine Normal (Normal)
[2020-08-02 20:53] LABS: Thyroid Stimulating Hormone 1.238 mcIU/mL (0.340-5.600)
[2020-08-02 21:12] LABS: Lipase 237 Units/L (11-82)
[2020-08-02] MEDS ORDERED: Piperacillin/Tazobactam 3.375 GM in 0.9 % Sodium Chloride Mini Bag 100 ML IVPB ONE (23:59)
[2020-08-03] MEDS ORDERED: Naloxone 0.4 MG/ML INJ IVP PRN (01:42)
[2020-08-03] MEDS ORDERED: *HR* Promethazine 25 MG/ML VIAL IM PRN (01:42)
[2020-08-03] MEDS ORDERED: *HR* LORazepam 2 MG/ML VIAL IVP PRN ×3 (01:43)
[2020-08-03] MEDS: Ondansetron 4 MG/2 ML VIAL IVP PRN ×2 (02:24→10:44)
[2020-08-03] MEDS: levETIRAcetam 250 MG TABLET PO SCH ×2 (03:03→20:22)
[2020-08-03] MEDS: QUEtiapine Fumarate 100 MG TABLET PO SCH ×2 (03:04→20:23)
[2020-08-03] MEDS: traZODone 50 MG TABLET PO SCH ×2 (03:04→20:23)
[2020-08-03 03:56] LABS: INR 1.1; Prothrombin Time 13.1 Seconds (9.4-12.1)
[2020-08-03 04:15] LABS: Basophils % 0.5 %; Eosinophils % 0.2 %; Hemoglobin 12.9 g/dL (12.9-16.9); Immature Granulocytes % 0.7 % (0-4); Immature Platelets 5.6 % (1.1-6.1); Lymphocytes # 1.3 K/mcL (0.6-4.6); Lymphocytes % 22.7 %; Mean Corpuscular HGB Conc 33.9 g/dL (31.6-35.5); Mean Corpuscular Hemoglobin 31.9 pg (28.0-33.3); Mean Corpuscular Volume 94.1 fL (83.0-100.0); Mean Platelet Volume 10.6 fL (9.4-12.4); Monocytes # 0.8 K/mcL (0.0-1.3); Monocytes % 14.5 %; Neutrophils # 3.6 K/mcL (1.6-8.9); Platelet Count 130 K/mcL (140-400); Red Blood Count 4.04 M/mcL (4.19-5.50); Red Cell Distribution Width 13.8 % (11.5-14.5); Segmented Neutrophils % 61.4 %; White Blood Count 5.8 K/mcL (4.3-11.1)
[2020-08-03 04:16] LABS: Alanine Aminotransferase 27 Units/L (7-52); Albumin 3.8 g/dL (3.5-5.7); Albumin/Globulin Ratio 1.4 (1.1-2.2); Alkaline Phosphatase 79 Units/L (34-104); Aspartate Amino Transferase 57 Units/L (13-39); BUN/Creatinine Ratio 27 (6-26); Bilirubin,Total 0.6 mg/dL (0.3-1.0); Blood Urea Nitrogen 15 mg/dL (8-23); Calcium 8.2 mg/dL (8.6-10.3); Carbon Dioxide 21 mEq/L (23-29); Chloride 99 mEq/L (98-107); Chol/HDL Ratio 2.8 (0-4.9); Cholesterol 205 mg/dL (< 200); Globulin 2.8 g/dL (2.4-3.5); Glucose 125 mg/dL (70-105); HDL Cholesterol 73 mg/dL (40-59); LDL Cholesterol,Calculated 111 mg/dL (< 100); Magnesium 1.5 mg/dL (1.6-2.6); Osmolality,Calculated 280 (280-300); Phosphorous 2.3 mg/dL (2.7-4.5); Potassium 3.8 mEq/L (3.5-5.1); Sodium 134 mEq/L (136-145); Total Protein 6.6 g/dL (6.4-8.9); Triglycerides 105 mg/dL (< 150); eGFR For African Americans > 60 (> 60); eGFR For Non-African Americans > 60 (> 60)
[2020-08-03] MEDS: Ringers Solution, Lactated 1,000 ML IVC SCH ×2 (05:32→09:11)
[2020-08-03] MEDS ORDERED: levETIRAcetam 250 MG TABLET PO SCH (09:00)
[2020-08-03] MEDS: Folic Acid 1 MG in 0.9 % Sodium Chloride 50 ML IVPB SCH (09:12)
[2020-08-03] MEDS ORDERED: Acetaminophen 325 MG TABLET PO PRN (09:43)
[2020-08-03] MEDS: Gabapentin 100 MG CAPSULE PO SCH ×3 (10:38→20:23)
[2020-08-03] MEDS: Cyanocobalamin (B-12) 1,000 MCG TABLET PO SCH (10:38)
[2020-08-03] MEDS: Spironolactone 25 MG TABLET PO SCH (10:38)
[2020-08-03] MEDS: Folic Acid 1 MG TABLET PO SCH (10:38)
[2020-08-03] MEDS: Metoprolol XL (24 HR) Succ 25 MG TAB.ER.24H PO SCH (10:39)
[2020-08-03] MEDS: PHENobarbitaL 32.4 MG TABLET PO SCH ×2 (10:39→20:23)
[2020-08-03] MEDS: Divalproex (12 HR) 500 MG TABLET PO SCH ×2 (10:39→20:22)
[2020-08-03] MEDS: Cholecalciferol (D-3) 1,000 UNIT (25MCG) TABLET PO SCH (10:39)
[2020-08-03] MEDS: QUEtiapine Fumarate 25 MG TABLET PO SCH ×2 (10:39→16:01)
[2020-08-03] MEDS: Lactulose Oral Soln 20 GM/30 ML UDC PO SCH ×2 (10:39→20:23)
[2020-08-03] MEDS: Ketoconazole 2% CRM 15 GM TUBE TP SCH ×2 (13:52→20:11)
[2020-08-03] MEDS: Thiamine (B-1) 200 MG in 0.9 % Sodium Chloride 50 ML IVPB SCH (13:52)
[2020-08-03] MEDS: *HR* Rivaroxaban 10 MG TABLET PO SCH (16:01)
[2020-08-03] MEDS: Melatonin 3 MG TABLET PO SCH (20:23)
[2020-08-04 06:27] LABS: Hematocrit 37.1 % (37.5-50.1)
[2020-08-04 06:29] LABS: Hemoglobin 12.1 g/dL (12.9-16.9); Immature Platelets 10.7 % (1.1-6.1); Mean Corpuscular HGB Conc 32.6 g/dL (31.6-35.5); Mean Corpuscular Hemoglobin 30.9 pg (28.0-33.3); Mean Corpuscular Volume 94.6 fL (83.0-100.0); Mean Platelet Volume 11.2 fL (9.4-12.4); Red Blood Count 3.92 M/mcL (4.19-5.50); Red Cell Distribution Width 14.1 % (11.5-14.5); White Blood Count 5.1 K/mcL (4.3-11.1)
[2020-08-04 06:51] LABS: Alanine Aminotransferase 35 Units/L (7-52); Albumin 3.7 g/dL (3.5-5.7); Albumin/Globulin Ratio 1.3 (1.1-2.2); Alkaline Phosphatase 85 Units/L (34-104); Aspartate Amino Transferase 101 Units/L (13-39); BUN/Creatinine Ratio 16 (6-26); Bilirubin,Total 1.1 mg/dL (0.3-1.0); Blood Urea Nitrogen 12 mg/dL (8-23); Calcium 9.2 mg/dL (8.6-10.3); Carbon Dioxide 27 mEq/L (23-29); Chloride 98 mEq/L (98-107); Globulin 2.8 g/dL (2.4-3.5); Glucose 109 mg/dL (70-105); Osmolality,Calculated 274 (280-300); Potassium 3.6 mEq/L (3.5-5.1); Sodium 132 mEq/L (136-145); Total Protein 6.5 g/dL (6.4-8.9); eGFR For African Americans > 60 (> 60); eGFR For Non-African Americans > 60 (> 60)
[2020-08-04] MEDS ORDERED: Ringers Solution, Lactated 1,000 ML IVC SCH (08:00)
[2020-08-04 08:05] LABS: Lipase 88 Units/L (11-82); Magnesium 1.8 mg/dL (1.6-2.6); Phosphorous 2.7 mg/dL (2.7-4.5)
[2020-08-04] MEDS ORDERED: Morphine Sulfate 2 MG/ML SYRINGE IVP STA (09:26)
[2020-08-04] MEDS: levETIRAcetam 250 MG TABLET PO SCH ×2 (10:25→20:41)
[2020-08-04] MEDS: Lactulose Oral Soln 20 GM/30 ML UDC PO SCH ×2 (10:25→20:42)
[2020-08-04] MEDS: PHENobarbitaL 32.4 MG TABLET PO SCH ×2 (10:26→20:41)
[2020-08-04] MEDS: Folic Acid 1 MG TABLET PO SCH (10:26)
[2020-08-04] MEDS: Spironolactone 25 MG TABLET PO SCH (10:26)
[2020-08-04] MEDS: QUEtiapine Fumarate 25 MG TABLET PO SCH ×2 (10:26→17:57)
[2020-08-04] MEDS: Divalproex (12 HR) 500 MG TABLET PO SCH ×2 (10:26→20:41)
[2020-08-04] MEDS: Metoprolol XL (24 HR) Succ 25 MG TAB.ER.24H PO SCH (10:26)
[2020-08-04] MEDS: Gabapentin 100 MG CAPSULE PO SCH ×3 (10:26→20:41)
[2020-08-04] MEDS: Cyanocobalamin (B-12) 1,000 MCG TABLET PO SCH (10:26)
[2020-08-04] MEDS: Cholecalciferol (D-3) 1,000 UNIT (25MCG) TABLET PO SCH (10:26)
[2020-08-04] MEDS: Ketoconazole 2% CRM 15 GM TUBE TP SCH ×2 (10:28→20:57)
[2020-08-04] MEDS: Folic Acid 1 MG in 0.9 % Sodium Chloride 50 ML IVPB SCH (10:48)
[2020-08-04] MEDS: Thiamine (B-1) 200 MG in 0.9 % Sodium Chloride 50 ML IVPB SCH (10:48)
[2020-08-04] MEDS ORDERED: *HR* LORazepam 2 MG/ML VIAL IVP ONE (16:18)
[2020-08-04] MEDS: *HR* Rivaroxaban 10 MG TABLET PO SCH (17:57)
[2020-08-04] MEDS ORDERED: Perflutren Lipid Microsphere 1.3 ML in 0.9 % Sodium Chloride 8.7 ML IVP PRN (19:23)
[2020-08-04] MEDS: Melatonin 3 MG TABLET PO SCH (20:41)
[2020-08-04] MEDS: traZODone 50 MG TABLET PO SCH (20:41)
[2020-08-04] MEDS: QUEtiapine Fumarate 100 MG TABLET PO SCH (20:41)
[2020-08-04] MEDS: Aspirin 81 MG TAB.CHEW PO SCH (20:42)
[2020-08-05 07:13] LABS: Hemoglobin 12.2 g/dL (12.9-16.9); Mean Corpuscular Volume 95.6 fL (83.0-100.0); Red Cell Distribution Width 13.7 % (11.5-14.5)
[2020-08-05 07:15] LABS: Hematocrit 36.8 % (37.5-50.1); Immature Platelets 11.7 % (1.1-6.1); Mean Corpuscular HGB Conc 33.2 g/dL (31.6-35.5); Mean Corpuscular Hemoglobin 31.7 pg (28.0-33.3); Mean Platelet Volume 11.7 fL (9.4-12.4); Red Blood Count 3.85 M/mcL (4.19-5.50); White Blood Count 5.2 K/mcL (4.3-11.1)
[2020-08-05 07:43] LABS: Alanine Aminotransferase 39 Units/L (7-52); Albumin 3.6 g/dL (3.5-5.7); Albumin/Globulin Ratio 1.3 (1.1-2.2); Alkaline Phosphatase 83 Units/L (34-104); Aspartate Amino Transferase 73 Units/L (13-39); BUN/Creatinine Ratio 16 (6-26); Blood Urea Nitrogen 10 mg/dL (8-23); Calcium 9.1 mg/dL (8.6-10.3); Carbon Dioxide 25 mEq/L (23-29); Chloride 98 mEq/L (98-107); Globulin 2.7 g/dL (2.4-3.5); Glucose 115 mg/dL (70-105); Osmolality,Calculated 274 (280-300); Potassium 3.2 mEq/L (3.5-5.1); Sodium 132 mEq/L (136-145); Total Protein 6.3 g/dL (6.4-8.9); eGFR For African Americans > 60 (> 60); eGFR For Non-African Americans > 60 (> 60)
[2020-08-05] MEDS: Metoprolol XL (24 HR) Succ 25 MG TAB.ER.24H PO SCH (08:23)
[2020-08-05] MEDS: Cyanocobalamin (B-12) 1,000 MCG TABLET PO SCH (08:23)
[2020-08-05] MEDS: PHENobarbitaL 32.4 MG TABLET PO SCH ×2 (08:23→21:25)
[2020-08-05] MEDS: Aspirin 81 MG TAB.CHEW PO SCH (08:23)
[2020-08-05] MEDS: Lactulose Oral Soln 20 GM/30 ML UDC PO SCH ×2 (08:23→21:25)
[2020-08-05] MEDS: Cholecalciferol (D-3) 1,000 UNIT (25MCG) TABLET PO SCH (08:23)
[2020-08-05] MEDS: QUEtiapine Fumarate 25 MG TABLET PO SCH ×2 (08:23→16:09)
[2020-08-05] MEDS: Gabapentin 100 MG CAPSULE PO SCH ×3 (08:23→21:25)
[2020-08-05] MEDS: Folic Acid 1 MG in 0.9 % Sodium Chloride 50 ML IVPB SCH (08:24)
[2020-08-05] MEDS: levETIRAcetam 250 MG TABLET PO SCH ×2 (08:24→21:25)
[2020-08-05] MEDS: Divalproex (12 HR) 500 MG TABLET PO SCH ×2 (08:24→21:25)
[2020-08-05] MEDS: Spironolactone 25 MG TABLET PO SCH (08:24)
[2020-08-05] MEDS: Folic Acid 1 MG TABLET PO SCH (08:24)
[2020-08-05] MEDS: Thiamine (B-1) 200 MG in 0.9 % Sodium Chloride 50 ML IVPB SCH (08:25)
[2020-08-05] MEDS: Ketoconazole 2% CRM 15 GM TUBE TP SCH ×2 (08:35→21:29)
[2020-08-05] MEDS: *HR* Rivaroxaban 10 MG TABLET PO SCH (16:09)
[2020-08-05] MEDS: Melatonin 3 MG TABLET PO SCH (21:24)
[2020-08-05] MEDS: traZODone 50 MG TABLET PO SCH (21:24)
[2020-08-05] MEDS: QUEtiapine Fumarate 100 MG TABLET PO SCH (21:25)
[2020-08-06 07:24] LABS: Hematocrit 38.3 % (37.5-50.1); Hemoglobin 12.7 g/dL (12.9-16.9); Immature Platelets 14.7 % (1.1-6.1); Mean Corpuscular HGB Conc 33.2 g/dL (31.6-35.5); Mean Corpuscular Hemoglobin 31.6 pg (28.0-33.3); Mean Corpuscular Volume 95.3 fL (83.0-100.0); Mean Platelet Volume 12.1 fL (9.4-12.4); Red Blood Count 4.02 M/mcL (4.19-5.50); Red Cell Distribution Width 13.6 % (11.5-14.5); White Blood Count 6.1 K/mcL (4.3-11.1)
[2020-08-06 07:38] LABS: Alanine Aminotransferase 34 Units/L (7-52); Albumin 3.9 g/dL (3.5-5.7); Albumin/Globulin Ratio 1.3 (1.1-2.2); Alkaline Phosphatase 90 Units/L (34-104); Aspartate Amino Transferase 44 Units/L (13-39); BUN/Creatinine Ratio 13 (6-26); Bilirubin,Total 0.7 mg/dL (0.3-1.0); Blood Urea Nitrogen 9 mg/dL (8-23); Calcium 9.6 mg/dL (8.6-10.3); Carbon Dioxide 26 mEq/L (23-29); Chloride 99 mEq/L (98-107); Globulin 2.9 g/dL (2.4-3.5); Glucose 121 mg/dL (70-105); Magnesium 1.8 mg/dL (1.6-2.6); Osmolality,Calculated 276 (280-300); Potassium 3.5 mEq/L (3.5-5.1); Sodium 133 mEq/L (136-145); Total Protein 6.8 g/dL (6.4-8.9); eGFR For African Americans > 60 (> 60); eGFR For Non-African Americans > 60 (> 60)
[2020-08-06] MEDS: PHENobarbitaL 32.4 MG TABLET PO SCH (08:40)
[2020-08-06] MEDS: Cholecalciferol (D-3) 1,000 UNIT (25MCG) TABLET PO SCH (08:41)
[2020-08-06] MEDS: Cyanocobalamin (B-12) 1,000 MCG TABLET PO SCH (08:41)
[2020-08-06] MEDS: Spironolactone 25 MG TABLET PO SCH (08:41)
[2020-08-06] MEDS: Aspirin 81 MG TAB.CHEW PO SCH (08:41)
[2020-08-06] MEDS: QUEtiapine Fumarate 25 MG TABLET PO SCH (08:41)
[2020-08-06] MEDS: Gabapentin 100 MG CAPSULE PO SCH ×2 (08:41→15:13)
[2020-08-06] MEDS: Metoprolol XL (24 HR) Succ 25 MG TAB.ER.24H PO SCH (08:41)
[2020-08-06] MEDS: Divalproex (12 HR) 500 MG TABLET PO SCH (08:41)
[2020-08-06] MEDS: Folic Acid 1 MG TABLET PO SCH (08:41)
[2020-08-06] MEDS: Lactulose Oral Soln 20 GM/30 ML UDC PO SCH (08:42)
[2020-08-06] MEDS: levETIRAcetam 250 MG TABLET PO SCH (08:42)
[2020-08-06] MEDS: Ketoconazole 2% CRM 15 GM TUBE TP SCH (08:45)
[2020-08-06 10:04] LABS: Estimated Average Glucose 117 mg/dl; Hemoglobin A1C 5.7 %
[2020-08-06 16:02] VITALS: BP 136/76
[2020-08-08 08:19] LABS: ANA IgG by ELISA NONE DETECTED (None Detected)
== END 2020-08-06 18:00 | disposition home health service (06) | DRG 64 ==
LOC: EMEROOARM 19:11 → 3BNU 19:11 → SUATTDRO 08-03 01:05 → 3BNU 08-03 01:30
PROVIDERS: ADMIT Family Medicine; ATTEND Registered Nurse

== ENCOUNTER 2020-08-26 07:46 | Inpatient (IN) ==
[2020-08-26] MEDS ORDERED: 0.9 % Sodium Chloride 1,000 ML IVC ONE ×2 (07:50→09:18)
[2020-08-26] MEDS ORDERED: Thiamine (B-1) 100 MG in 0.9 % Sodium Chloride 50 ML IVPB ONE (07:51)
[2020-08-26] MEDS ORDERED: Folic Acid 1 MG TABLET PO ONE (07:52)
[2020-08-26] MEDS ORDERED: Isovue-370 500 ML BOTTLE IVP ONE (08:10)
[2020-08-26 08:24] LABS: Hematocrit 39.3 % (37.5-50.1); Mean Corpuscular Volume 93.8 fL (83.0-100.0); Red Blood Count 4.19 M/mcL (4.19-5.50)
[2020-08-26 08:26] LABS: Basophils % 0.5 %; Hemoglobin 13.1 g/dL (12.9-16.9); Immature Granulocytes % 0.5 % (0-4); Immature Platelets 8.4 % (1.1-6.1); Lymphocytes # 3.7 K/mcL (0.6-4.6); Lymphocytes % 50.5 %; Mean Corpuscular HGB Conc 33.3 g/dL (31.6-35.5); Mean Corpuscular Hemoglobin 31.3 pg (28.0-33.3); Mean Platelet Volume 10.8 fL (9.4-12.4); Monocytes # 0.4 K/mcL (0.0-1.3); Monocytes % 5.4 %; Neutrophils # 3.2 K/mcL (1.6-8.9); Platelet Count 117 K/mcL (140-400); Red Cell Distribution Width 14.4 % (11.5-14.5); Segmented Neutrophils % 43.1 %; White Blood Count 7.4 K/mcL (4.3-11.1)
[2020-08-26 08:35] LABS: INR 1.2; Prothrombin Time 14.3 Seconds (9.4-12.1)
[2020-08-26 08:45] LABS: Alanine Aminotransferase 12 Units/L (7-52); Albumin/Globulin Ratio 1.3 (1.1-2.2); Alkaline Phosphatase 106 Units/L (34-104); Aspartate Amino Transferase 29 Units/L (13-39); BUN/Creatinine Ratio 25 (6-26); Bilirubin,Direct 0.2 mg/dL (0.0-0.2); Bilirubin,Indirect 0.3 mg/dL (0.0-1.0); Bilirubin,Total 0.5 mg/dL (0.3-1.0); Blood Urea Nitrogen 15 mg/dL (8-23); Calcium 8.7 mg/dL (8.6-10.3); Carbon Dioxide 19 mEq/L (23-29); Chloride 94 mEq/L (98-107); Ethanol 369 mg/dL (Less than 10); Globulin 3.2 g/dL (2.4-3.5); Glucose 121 mg/dL (70-105); Lipase 276 Units/L (11-82); Osmolality,Calculated 286 (280-300); Sodium 137 mEq/L (136-145); Total Protein 7.2 g/dL (6.4-8.9); eGFR For African Americans > 60 (> 60); eGFR For Non-African Americans > 60 (> 60)
[2020-08-26] MEDS ORDERED: *HR* LORazepam 2 MG/ML VIAL IVP PRN ×3 (09:09)
[2020-08-26] MEDS ORDERED: Ondansetron 4 MG/2 ML VIAL IVP PRN (10:45)
[2020-08-26] MEDS ORDERED: Naloxone 0.4 MG/ML INJ IVP PRN (10:45)
[2020-08-26] MEDS ORDERED: Acetaminophen 325 MG TABLET PO PRN (10:45)
[2020-08-26] MEDS ORDERED: *HR* FentaNYL (PF) 100 MCG/2 ML VIAL IVP ONE (10:46)
[2020-08-26 11:04] LABS: Magnesium 1.8 mg/dL (1.6-2.6); Phosphorous 2.6 mg/dL (2.7-4.5)
[2020-08-26 12:32] LABS: INR 1.2; Prothrombin Time 13.8 Seconds (9.4-12.1)
[2020-08-26] MEDS: Nicotine 21 MG PATCH.TD24 TD SCH (14:36)
[2020-08-26] MEDS: *HR* HYDROcodone/Acet 5/325 mg TABLET PO PRN ×2 (14:36→20:06)
[2020-08-26] MEDS: Ringers Solution, Lactated 1,000 ML IVC SCH (18:20)
[2020-08-26] MEDS: Gabapentin 100 MG CAPSULE PO SCH (20:02)
[2020-08-26] MEDS: Divalproex (12 HR) 500 MG TABLET PO SCH (20:02)
[2020-08-26] MEDS: QUEtiapine Fumarate 100 MG TABLET PO SCH (20:03)
[2020-08-26] MEDS: levETIRAcetam 250 MG TABLET PO SCH (20:03)
[2020-08-26] MEDS: Lactulose Oral Soln 20 GM/30 ML UDC PO SCH (20:04)
[2020-08-26 20:34] LABS: Acetaminophen < 10 mcg/mL (10-20); Salicylate < 2.5 mg/dL (15.0-30.0)
[2020-08-27 00:30] LABS: Hematocrit 31.7 % (37.5-50.1); Immature Granulocytes % 0.5 % (0-4); Mean Corpuscular Volume 92.4 fL (83.0-100.0); Red Blood Count 3.43 M/mcL (4.19-5.50)
[2020-08-27 00:32] LABS: Basophils % 0.5 %; Hemoglobin 10.7 g/dL (12.9-16.9); Lymphocytes # 1.7 K/mcL (0.6-4.6); Lymphocytes % 27.8 %; Mean Corpuscular HGB Conc 33.8 g/dL (31.6-35.5); Mean Corpuscular Hemoglobin 31.2 pg (28.0-33.3); Mean Platelet Volume 11.4 fL (9.4-12.4); Monocytes # 0.4 K/mcL (0.0-1.3); Monocytes % 6.7 %; Neutrophils # 3.9 K/mcL (1.6-8.9); Red Cell Distribution Width 14.3 % (11.5-14.5); Segmented Neutrophils % 64.5 %
[2020-08-27 00:41] LABS: Platelet Count 67 K/mcL (140-400)
[2020-08-27 00:49] LABS: Alanine Aminotransferase 21 Units/L (7-52); Albumin 3.6 g/dL (3.5-5.7); Albumin/Globulin Ratio 1.3 (1.1-2.2); Alkaline Phosphatase 101 Units/L (34-104); Aspartate Amino Transferase 86 Units/L (13-39); BUN/Creatinine Ratio 24 (6-26); Blood Urea Nitrogen 14 mg/dL (8-23); Calcium 8.4 mg/dL (8.6-10.3); Carbon Dioxide 28 mEq/L (23-29); Chloride 97 mEq/L (98-107); Ethanol < 10 mg/dL (Less than 10); Globulin 2.8 g/dL (2.4-3.5); Glucose 134 mg/dL (70-105); Magnesium 1.8 mg/dL (1.6-2.6); Osmolality,Calculated 282 (280-300); Phosphorous 2.7 mg/dL (2.7-4.5); Potassium 3.7 mEq/L (3.5-5.1); Sodium 135 mEq/L (136-145); Total Protein 6.4 g/dL (6.4-8.9); eGFR For African Americans > 60 (> 60); eGFR For Non-African Americans > 60 (> 60)
[2020-08-27] MEDS: *HR* HYDROcodone/Acet 5/325 mg TABLET PO PRN (03:08)
[2020-08-27] MEDS: Divalproex (12 HR) 500 MG TABLET PO SCH ×2 (05:14→17:45)
[2020-08-27 05:25] LABS: Bacteria,Urine Few per hpf (None-Few); Bilirubin,Urine Negative (Negative); Blood,Urine Large (Negative); Clarity,Urine Turbid (Clear); Color,Urine Light-Orange (Yellow); Glucose,Urine (UA) Normal (Normal); Ketones,Urine Trace mg/dL (Negative); Leukocyte Esterase,Urine Negative (Negative); Mucus,Urine Few per lpf (None-Few); Nitrite,Urine Negative (Negative); Protein,Urine Trace mg/dL (Neg-Trace); RBC,Urine TNTC per hpf (0-3); Specific Gravity,Urine 1.021 (1.010-1.025); Urobilinogen,Urine Normal (Normal)
[2020-08-27] MEDS: QUEtiapine Fumarate 25 MG TABLET PO SCH ×2 (07:57→17:46)
[2020-08-27] MEDS ORDERED: Morphine Sulfate Oral CONC 10 MG/0.5 ML ORAL.SYG SL PRN (08:09)
[2020-08-27 08:57] LABS: Lipase 181 Units/L (11-82)
[2020-08-27] MEDS ORDERED: Naltrexone HCl 50 MG TABLET PO SCH (09:00)
[2020-08-27] MEDS ORDERED: Nicotine 21 MG PATCH.TD24 TD SCH (09:00)
[2020-08-27] MEDS: Folic Acid 1 MG TABLET PO SCH (09:55)
[2020-08-27] MEDS: Thiamine (B-1) 100 MG TABLET PO SCH (09:55)
[2020-08-27] MEDS: Multivit/Ca/Min/Fe/FA 1 TAB TABLET PO SCH (09:55)
[2020-08-27] MEDS: levETIRAcetam 250 MG TABLET PO SCH ×2 (09:56→20:57)
[2020-08-27] MEDS: Nicotine 21 MG PATCH.TD24 TD SCH (09:56)
[2020-08-27] MEDS: Metoprolol XL (24 HR) Succ 25 MG TAB.ER.24H PO SCH (09:56)
[2020-08-27] MEDS: Spironolactone 25 MG TABLET PO SCH (09:56)
[2020-08-27] MEDS: Gabapentin 100 MG CAPSULE PO SCH ×3 (09:56→20:58)
[2020-08-27] MEDS: Lactulose Oral Soln 20 GM/30 ML UDC PO SCH ×2 (09:56→20:57)
[2020-08-27] MEDS: Cyanocobalamin (B-12) 1,000 MCG TABLET PO SCH (09:57)
[2020-08-27] MEDS: Morphine Sulfate Oral CONC 10 MG/0.5 ML ORAL.SYG SL PRN ×3 (09:57→20:58)
[2020-08-27] MEDS ORDERED: Octreotide 400 MCG in 0.9 % Sodium Chloride 100 ML IVC SCH (10:15)
[2020-08-27 11:36] LABS: Adenovirus Not Detected (Not Detect); Bordetella Pertussis Not Detected (Not Detect); Chlamydophila pneumoniae Not Detected (Not Detect); Coronavirus 229E Not Detected (Not Detect); Coronavirus HKU1 Not Detected (Not Detect); Coronavirus NL63 Not Detected (Not Detect); Coronavirus OC43 Not Detected (Not Detect); Human Metapneumovirus Not Detected (Not Detect); Human Rhinovirus/Enterovirus Not Detected (Not Detect); Influenza A Subtype 2009 H1 Not Detected (Not Detect); Influenza B Not Detected (Not Detect); Mycoplasma pneumoniae Not Detected (Not Detect); Parainfluenza Virus 1 Not Detected (Not Detect); Parainfluenza Virus 2 Not Detected (Not Detect); Parainfluenza Virus 3 Not Detected (Not Detect); Parainfluenza Virus 4 Not Detected (Not Detect); Respiratory Syncytial Virus Not Detected (Not Detect); SARS-CoV-2 Not Detected (Not Detect)
[2020-08-27] MEDS: Pantoprazole 40 MG in 0.9 % Sodium Chloride Mini Bag 100 ML IVC SCH (11:45)
[2020-08-27] MEDS ORDERED: Lidocaine -MPF 2% 2 ML VIAL ONE (14:28)
[2020-08-27] MEDS: Ringers Solution, Lactated 1,000 ML IVC SCH (16:08)
[2020-08-27] MEDS: Aspirin 81 MG TAB.CHEW PO SCH (17:45)
[2020-08-27] MEDS: QUEtiapine Fumarate 100 MG TABLET PO SCH (20:58)
[2020-08-27] MEDS: Melatonin 3 MG TABLET PO PRN (20:58)
[2020-08-28] MEDS: Morphine Sulfate Oral CONC 10 MG/0.5 ML ORAL.SYG SL PRN ×5 (01:09→19:34)
[2020-08-28] MEDS: Pantoprazole 40 MG in 0.9 % Sodium Chloride Mini Bag 100 ML IVC SCH (02:41)
[2020-08-28 03:04] LABS: Hemoglobin 11.7 g/dL (12.9-16.9); Mean Corpuscular HGB Conc 33.1 g/dL (31.6-35.5)
[2020-08-28 03:06] LABS: Hematocrit 35.4 % (37.5-50.1); Immature Platelets 11.4 % (1.1-6.1); Mean Corpuscular Hemoglobin 31.2 pg (28.0-33.3); Mean Corpuscular Volume 94.4 fL (83.0-100.0); Mean Platelet Volume 11.5 fL (9.4-12.4); Red Blood Count 3.75 M/mcL (4.19-5.50); Red Cell Distribution Width 14.6 % (11.5-14.5); White Blood Count 5.5 K/mcL (4.3-11.1)
[2020-08-28 03:25] LABS: Alanine Aminotransferase 22 Units/L (7-52); Albumin 3.8 g/dL (3.5-5.7); Albumin/Globulin Ratio 1.3 (1.1-2.2); Alkaline Phosphatase 110 Units/L (34-104); Aspartate Amino Transferase 53 Units/L (13-39); BUN/Creatinine Ratio 13 (6-26); Bilirubin,Total 1.1 mg/dL (0.3-1.0); Blood Urea Nitrogen 8 mg/dL (8-23); Carbon Dioxide 31 mEq/L (23-29); Chloride 97 mEq/L (98-107); Globulin 2.9 g/dL (2.4-3.5); Glucose 138 mg/dL (70-105); Osmolality,Calculated 279 (280-300); Potassium 3.1 mEq/L (3.5-5.1); Sodium 134 mEq/L (136-145); Total Protein 6.7 g/dL (6.4-8.9); eGFR For African Americans > 60 (> 60); eGFR For Non-African Americans > 60 (> 60)
[2020-08-28] MEDS: Divalproex (12 HR) 500 MG TABLET PO SCH ×2 (05:22→17:31)
[2020-08-28] MEDS: Spironolactone 25 MG TABLET PO SCH (09:49)
[2020-08-28] MEDS: Folic Acid 1 MG TABLET PO SCH (09:50)
[2020-08-28] MEDS: Thiamine (B-1) 100 MG TABLET PO SCH (09:50)
[2020-08-28] MEDS: Aspirin 81 MG TAB.CHEW PO SCH (09:51)
[2020-08-28] MEDS: Cyanocobalamin (B-12) 1,000 MCG TABLET PO SCH (09:51)
[2020-08-28] MEDS: levETIRAcetam 250 MG TABLET PO SCH ×2 (09:52→19:35)
[2020-08-28] MEDS: *HR* Rivaroxaban 10 MG TABLET PO SCH (09:54)
[2020-08-28] MEDS: QUEtiapine Fumarate 25 MG TABLET PO SCH ×2 (09:54→17:32)
[2020-08-28] MEDS: Metoprolol XL (24 HR) Succ 25 MG TAB.ER.24H PO SCH (09:54)
[2020-08-28] MEDS: Gabapentin 100 MG CAPSULE PO SCH ×3 (09:55→19:35)
[2020-08-28] MEDS: Multivit/Ca/Min/Fe/FA 1 TAB TABLET PO SCH (09:55)
[2020-08-28] MEDS: Pantoprazole 40 MG VIAL IVP SCH (09:57)
[2020-08-28] MEDS: Nicotine 21 MG PATCH.TD24 TD SCH (09:57)
[2020-08-28] MEDS: Lactulose Oral Soln 20 GM/30 ML UDC PO SCH ×2 (09:58→19:36)
[2020-08-28 16:33] LABS: Lipase 83 Units/L (11-82)
[2020-08-28] MEDS: QUEtiapine Fumarate 100 MG TABLET PO SCH (19:35)
[2020-08-29] MEDS: Divalproex (12 HR) 500 MG TABLET PO SCH ×2 (05:05→17:34)
[2020-08-29 05:42] LABS: Hematocrit 33.5 % (37.5-50.1); Hemoglobin 11.1 g/dL (12.9-16.9); Immature Platelets 14.8 % (1.1-6.1); Mean Corpuscular HGB Conc 33.1 g/dL (31.6-35.5); Mean Corpuscular Hemoglobin 31.5 pg (28.0-33.3); Mean Corpuscular Volume 95.2 fL (83.0-100.0); Mean Platelet Volume 12.6 fL (9.4-12.4); Red Blood Count 3.52 M/mcL (4.19-5.50)
[2020-08-29] MEDS: Lactulose Oral Soln 20 GM/30 ML UDC PO SCH ×2 (07:37→21:03)
[2020-08-29] MEDS: *HR* Rivaroxaban 10 MG TABLET PO SCH (07:38)
[2020-08-29] MEDS: Thiamine (B-1) 100 MG TABLET PO SCH (07:38)
[2020-08-29] MEDS: QUEtiapine Fumarate 25 MG TABLET PO SCH ×2 (07:38→17:34)
[2020-08-29] MEDS: levETIRAcetam 250 MG TABLET PO SCH ×2 (07:38→21:03)
[2020-08-29] MEDS: Multivit/Ca/Min/Fe/FA 1 TAB TABLET PO SCH (07:38)
[2020-08-29] MEDS: Gabapentin 100 MG CAPSULE PO SCH ×3 (07:39→21:03)
[2020-08-29] MEDS: Cyanocobalamin (B-12) 1,000 MCG TABLET PO SCH (07:39)
[2020-08-29] MEDS: Spironolactone 25 MG TABLET PO SCH (07:42)
[2020-08-29] MEDS: Metoprolol XL (24 HR) Succ 25 MG TAB.ER.24H PO SCH (07:42)
[2020-08-29] MEDS: Folic Acid 1 MG TABLET PO SCH (07:42)
[2020-08-29] MEDS: Aspirin 81 MG TAB.CHEW PO SCH (07:42)
[2020-08-29] MEDS: Nicotine 21 MG PATCH.TD24 TD SCH (07:45)
[2020-08-29] MEDS: Pantoprazole 40 MG VIAL IVP SCH (07:47)
[2020-08-29] MEDS: Morphine Sulfate Oral CONC 10 MG/0.5 ML ORAL.SYG SL PRN ×4 (08:04→21:36)
[2020-08-29 10:41] LABS: Alanine Aminotransferase 16 Units/L (7-52); Albumin 3.5 g/dL (3.5-5.7); Albumin/Globulin Ratio 1.3 (1.1-2.2); Alkaline Phosphatase 98 Units/L (34-104); Aspartate Amino Transferase 29 Units/L (13-39); BUN/Creatinine Ratio 21 (6-26); Bilirubin,Total 0.8 mg/dL (0.3-1.0); Blood Urea Nitrogen 14 mg/dL (8-23); Calcium 8.8 mg/dL (8.6-10.3); Carbon Dioxide 27 mEq/L (23-29); Chloride 102 mEq/L (98-107); Globulin 2.7 g/dL (2.4-3.5); Glucose 111 mg/dL (70-105); Lipase 64 Units/L (11-82); Osmolality,Calculated 281 (280-300); Potassium 3.8 mEq/L (3.5-5.1); Sodium 135 mEq/L (136-145); Total Protein 6.2 g/dL (6.4-8.9); eGFR For African Americans > 60 (> 60); eGFR For Non-African Americans > 60 (> 60)
[2020-08-29] MEDS: QUEtiapine Fumarate 100 MG TABLET PO SCH (21:04)
[2020-08-30] MEDS: Divalproex (12 HR) 500 MG TABLET PO SCH ×2 (05:02→17:19)
[2020-08-30 05:35] LABS: Hematocrit 32.6 % (37.5-50.1); Hemoglobin 10.5 g/dL (12.9-16.9); Immature Platelets 15.8 % (1.1-6.1); Mean Corpuscular HGB Conc 32.2 g/dL (31.6-35.5); Mean Corpuscular Hemoglobin 31.2 pg (28.0-33.3); Mean Corpuscular Volume 96.7 fL (83.0-100.0); Mean Platelet Volume 11.8 fL (9.4-12.4); Red Blood Count 3.37 M/mcL (4.19-5.50); White Blood Count 7.3 K/mcL (4.3-11.1)
[2020-08-30 05:50] LABS: Alanine Aminotransferase 17 Units/L (7-52); Albumin 3.5 g/dL (3.5-5.7); Albumin/Globulin Ratio 1.3 (1.1-2.2); Alkaline Phosphatase 109 Units/L (34-104); Aspartate Amino Transferase 31 Units/L (13-39); BUN/Creatinine Ratio 19 (6-26); Bilirubin,Total 0.7 mg/dL (0.3-1.0); Blood Urea Nitrogen 15 mg/dL (8-23); Calcium 9.1 mg/dL (8.6-10.3); Carbon Dioxide 28 mEq/L (23-29); Chloride 101 mEq/L (98-107); Globulin 2.6 g/dL (2.4-3.5); Glucose 148 mg/dL (70-105); Osmolality,Calculated 282 (280-300); Potassium 3.8 mEq/L (3.5-5.1); Sodium 134 mEq/L (136-145); Total Protein 6.1 g/dL (6.4-8.9); eGFR For African Americans > 60 (> 60); eGFR For Non-African Americans > 60 (> 60)
[2020-08-30] MEDS: Lactulose Oral Soln 20 GM/30 ML UDC PO SCH ×2 (07:32→20:01)
[2020-08-30] MEDS: Nicotine 21 MG PATCH.TD24 TD SCH (07:32)
[2020-08-30] MEDS: Pantoprazole 40 MG VIAL IVP SCH (07:33)
[2020-08-30] MEDS: Cyanocobalamin (B-12) 1,000 MCG TABLET PO SCH (07:36)
[2020-08-30] MEDS: levETIRAcetam 250 MG TABLET PO SCH ×2 (07:36→20:01)
[2020-08-30] MEDS: Spironolactone 25 MG TABLET PO SCH (07:36)
[2020-08-30] MEDS: QUEtiapine Fumarate 25 MG TABLET PO SCH ×2 (07:36→17:19)
[2020-08-30] MEDS: Thiamine (B-1) 100 MG TABLET PO SCH (07:37)
[2020-08-30] MEDS: *HR* Rivaroxaban 10 MG TABLET PO SCH (07:37)
[2020-08-30] MEDS: Metoprolol XL (24 HR) Succ 25 MG TAB.ER.24H PO SCH (07:37)
[2020-08-30] MEDS: Multivit/Ca/Min/Fe/FA 1 TAB TABLET PO SCH (07:37)
[2020-08-30] MEDS: Gabapentin 100 MG CAPSULE PO SCH ×3 (07:37→20:01)
[2020-08-30] MEDS: Aspirin 81 MG TAB.CHEW PO SCH (07:38)
[2020-08-30] MEDS: Folic Acid 1 MG TABLET PO SCH (07:38)
[2020-08-30] MEDS: Morphine Sulfate Oral CONC 10 MG/0.5 ML ORAL.SYG SL PRN ×2 (07:54→20:01)
[2020-08-30] MEDS: QUEtiapine Fumarate 100 MG TABLET PO SCH (20:01)
[2020-08-31] MEDS: Divalproex (12 HR) 500 MG TABLET PO SCH ×2 (06:18→17:43)
[2020-08-31] MEDS: Morphine Sulfate Oral CONC 10 MG/0.5 ML ORAL.SYG SL PRN ×3 (06:19→20:49)
[2020-08-31 06:43] LABS: Hematocrit 30.3 % (37.5-50.1); Mean Corpuscular Hemoglobin 31.7 pg (28.0-33.3); Mean Corpuscular Volume 96.2 fL (83.0-100.0); Mean Platelet Volume 11.7 fL (9.4-12.4); Red Blood Count 3.15 M/mcL (4.19-5.50); Red Cell Distribution Width 15.3 % (11.5-14.5); White Blood Count 7.5 K/mcL (4.3-11.1)
[2020-08-31 06:54] LABS: Alanine Aminotransferase 16 Units/L (7-52); Albumin 3.4 g/dL (3.5-5.7); Albumin/Globulin Ratio 1.3 (1.1-2.2); Alkaline Phosphatase 99 Units/L (34-104); Aspartate Amino Transferase 25 Units/L (13-39); BUN/Creatinine Ratio 21 (6-26); Bilirubin,Total 0.7 mg/dL (0.3-1.0); Blood Urea Nitrogen 15 mg/dL (8-23); Calcium 8.7 mg/dL (8.6-10.3); Carbon Dioxide 25 mEq/L (23-29); Chloride 103 mEq/L (98-107); Globulin 2.6 g/dL (2.4-3.5); Glucose 146 mg/dL (70-105); Osmolality,Calculated 283 (280-300); Potassium 3.6 mEq/L (3.5-5.1); Sodium 135 mEq/L (136-145); eGFR For African Americans > 60 (> 60); eGFR For Non-African Americans > 60 (> 60)
[2020-08-31] MEDS: QUEtiapine Fumarate 25 MG TABLET PO SCH ×2 (08:00→17:43)
[2020-08-31] MEDS: Metoprolol XL (24 HR) Succ 25 MG TAB.ER.24H PO SCH (11:23)
[2020-08-31] MEDS: Lactulose Oral Soln 20 GM/30 ML UDC PO SCH ×2 (11:23→20:46)
[2020-08-31] MEDS: Thiamine (B-1) 100 MG TABLET PO SCH (11:23)
[2020-08-31] MEDS: Aspirin 81 MG TAB.CHEW PO SCH (11:23)
[2020-08-31] MEDS: Multivit/Ca/Min/Fe/FA 1 TAB TABLET PO SCH (11:23)
[2020-08-31] MEDS: Gabapentin 100 MG CAPSULE PO SCH ×3 (11:23→20:46)
[2020-08-31] MEDS: *HR* Rivaroxaban 10 MG TABLET PO SCH (11:23)
[2020-08-31] MEDS: Folic Acid 1 MG TABLET PO SCH (11:23)
[2020-08-31] MEDS: levETIRAcetam 250 MG TABLET PO SCH ×2 (11:23→20:46)
[2020-08-31] MEDS: Spironolactone 25 MG TABLET PO SCH (11:23)
[2020-08-31] MEDS: Pantoprazole 40 MG VIAL IVP SCH (11:23)
[2020-08-31] MEDS: Cyanocobalamin (B-12) 1,000 MCG TABLET PO SCH (11:23)
[2020-08-31] MEDS: Nicotine 21 MG PATCH.TD24 TD SCH (20:25)
[2020-08-31] MEDS: Melatonin 3 MG TABLET PO PRN (20:46)
[2020-08-31] MEDS: QUEtiapine Fumarate 100 MG TABLET PO SCH (20:48)
[2020-09-01] MEDS: Divalproex (12 HR) 500 MG TABLET PO SCH (06:16)
[2020-09-01 06:43] LABS: Hematocrit 32.2 % (37.5-50.1); Hemoglobin 10.4 g/dL (12.9-16.9); Mean Corpuscular HGB Conc 32.3 g/dL (31.6-35.5); Mean Corpuscular Hemoglobin 32.2 pg (28.0-33.3); Mean Corpuscular Volume 99.7 fL (83.0-100.0); Mean Platelet Volume 11.1 fL (9.4-12.4); Platelet Count 108 K/mcL (140-400); Red Blood Count 3.23 M/mcL (4.19-5.50); Red Cell Distribution Width 15.5 % (11.5-14.5); White Blood Count 7.3 K/mcL (4.3-11.1)
[2020-09-01 07:12] LABS: Alanine Aminotransferase 14 Units/L (7-52); Albumin 3.5 g/dL (3.5-5.7); Albumin/Globulin Ratio 1.2 (1.1-2.2); Alkaline Phosphatase 87 Units/L (34-104); Aspartate Amino Transferase 21 Units/L (13-39); BUN/Creatinine Ratio 26 (6-26); Blood Urea Nitrogen 16 mg/dL (8-23); Calcium 9.1 mg/dL (8.6-10.3); Carbon Dioxide 22 mEq/L (23-29); Chloride 102 mEq/L (98-107); Globulin 2.9 g/dL (2.4-3.5); Glucose 140 mg/dL (70-105); Osmolality,Calculated 281 (280-300); Potassium 3.7 mEq/L (3.5-5.1); Sodium 134 mEq/L (136-145); Total Protein 6.4 g/dL (6.4-8.9); eGFR For African Americans > 60 (> 60); eGFR For Non-African Americans > 60 (> 60)
[2020-09-01 07:20] VITALS: BP 146/82
[2020-09-01] MEDS: Metoprolol XL (24 HR) Succ 25 MG TAB.ER.24H PO SCH (08:35)
[2020-09-01] MEDS: Gabapentin 100 MG CAPSULE PO SCH (08:35)
[2020-09-01] MEDS: Cyanocobalamin (B-12) 1,000 MCG TABLET PO SCH (08:36)
[2020-09-01] MEDS: Multivit/Ca/Min/Fe/FA 1 TAB TABLET PO SCH (08:36)
[2020-09-01] MEDS: Aspirin 81 MG TAB.CHEW PO SCH (08:36)
[2020-09-01] MEDS: Thiamine (B-1) 100 MG TABLET PO SCH (08:36)
[2020-09-01] MEDS: *HR* Rivaroxaban 10 MG TABLET PO SCH (08:36)
[2020-09-01] MEDS: Spironolactone 25 MG TABLET PO SCH (08:36)
[2020-09-01] MEDS: levETIRAcetam 250 MG TABLET PO SCH (08:36)
[2020-09-01] MEDS: QUEtiapine Fumarate 25 MG TABLET PO SCH (08:36)
[2020-09-01] MEDS: Folic Acid 1 MG TABLET PO SCH (08:37)
[2020-09-01] MEDS: Lactulose Oral Soln 20 GM/30 ML UDC PO SCH (08:37)
[2020-09-01] MEDS: Pantoprazole 40 MG VIAL IVP SCH (08:37)
[2020-09-01] MEDS: Nicotine 21 MG PATCH.TD24 TD SCH (08:37)
== END 2020-09-01 11:58 | DRG 439 ==
LOC: 3BNU 07:46 → EMEROOARM 07:46 → SUATTDRO 10:25 → 3BNU 11:14 → SUATTDRO 08-29 13:10
PROVIDERS: ADMIT Internal Medicine; ATTEND Nurse Practitioner